=== PATIENT | female | born 1975 | race Caucasian/White ===

== ENCOUNTER 2020-09-18 08:46 | Outpatient (REF) | payer OTHER, SELFPAY ==
--- NOTE | 2020-09-18 08:50 | CT_ITS ---
EXAMINATION: CT PELVIS WITH CONTRAST CLINICAL INFORMATION: SI joint dysfunction of both sides. COMPARISON: None TECHNIQUE: Helical scanning was performed with submillimeter collimation through the pelvis with the use of oral contrast and during bolus intravenous injection of 85 mL of Omnipaque 350 intravenous contrast. Sagittal and coronal multiplanar 2-D reconstructions were obtained. This CT examination was performed using dose optimization techniques as appropriate, variously including the following: *Automated exposure control *Adjustment of mA and/or kV according to patient size (this includes techniques or standardized protocols for targeted exams where dose is matched to indication/reason for exam; i.e. extremities or head) *Use of iterative reconstruction technique DLP: 785 mGy-cm FINDINGS: PELVIS: The bowel gas pattern is nonspecific scattered stool in the colon. No distention seen. The appendix has normal caliber. There is a solitary surgical staple in the left abdomen from previous intervention. The bladder is nondistended with mild bladder wall thickening. There is minimal free fluid in the cul-de-sac. The uterus and ovaries are suboptimally visualized. OSSEOUS STRUCTURES: There are metallic cages at the L5-S1, L4-L5 and L3-L4 disc levels for fusion. The L4 and L5 vertebrae are of normal height. There is normal symmetry of bilateral SI joints without bony erosive changes, lytic or sclerotic process. CT/CT pelvis w con IMPRESSION: Normal symmetric bilateral SI joints. L3-L4, L4-L5 and L5-S1 fusion with cages in place. No gross bony abnormality seen. Especially no abnormality seen in SI joints. Mild constipation.
[2020-09-18] MEDS: iohexoL 350 MG/ML 100 ML INFUS..BTL 85 ML IV (09:43)
== END 2020-09-18 08:47 | disposition home or self-care (01) ==
LOC: HO.CT 08:46
PROVIDERS: PCP Physician Assistant; Visit Provider Anesthesiology
DX: M53.3 Sacrococcygeal disorders, not elsewhere classified (principal)
CPT/HCPCS: 72193

== ENCOUNTER → 2020-10-05 14:00 | Outpatient (BNVA) | payer OTHER, SELFPAY | PROVIDERS: PCP Physician Assistant; Referring Provider Physician Assistant; Visit Provider Anesthesiology | DX: M96.1 Postlaminectomy syndrome, not elsewhere classified (principal); M16.11 Unilateral primary osteoarthritis, right hip; M17.11 Unilateral primary osteoarthritis, right knee; R10.2 Pelvic and perineal pain | CPT/HCPCS: Q3014 ==

== ENCOUNTER → 2020-11-03 13:00 | Outpatient (BNVA) | payer OTHER, SELFPAY | PROVIDERS: PCP Physician Assistant; Visit Provider Obstetrics & Gynecology | DX: R10.2 Pelvic and perineal pain (principal) | CPT/HCPCS: 99202 ==

== ENCOUNTER 2020-12-07 10:37 | Outpatient (REF) | payer OTHER, SELFPAY ==
--- NOTE | ~2020-12-07 | US_ITS ---
EXAMINATION: ULTRASOUND PELVIS COMPLETE US TRANSVAGINAL CLINICAL INFORMATION: Pelvic and perineal pain. History of hysterectomy. COMPARISON: None TECHNIQUE: Transabdominal and transvaginal ultrasound of the pelvis is obtained. FINDINGS: The uterus is surgically absent. The ovaries are not seen. The cervix is unremarkable. No free fluid in the pelvis. US/US transvaginal IMPRESSION: The uterus and ovaries are surgically absent. Unremarkable cervix. No free fluid.
--- NOTE | ~2020-12-07 | US_ITS ---
EXAMINATION: ULTRASOUND PELVIS COMPLETE US TRANSVAGINAL CLINICAL INFORMATION: Pelvic and perineal pain. History of hysterectomy. COMPARISON: None TECHNIQUE: Transabdominal and transvaginal ultrasound of the pelvis is obtained. FINDINGS: The uterus is surgically absent. The ovaries are not seen. The cervix is unremarkable. No free fluid in the pelvis. US/US pelvic complete IMPRESSION: The uterus and ovaries are surgically absent. Unremarkable cervix. No free fluid.
== END 2020-12-07 10:38 | disposition home or self-care (01) ==
LOC: HO.US 10:37
PROVIDERS: Visit Provider Obstetrics & Gynecology
DX: R10.2 Pelvic and perineal pain (principal); R10.31 Right lower quadrant pain; G89.29 Other chronic pain
CPT/HCPCS: 76830; 76856

== ENCOUNTER → 2020-12-26 11:32 | Outpatient (BNVA) | payer OTHER, SELFPAY | PROVIDERS: PCP Physician Assistant; Visit Provider Obstetrics & Gynecology | CPT/HCPCS: Q3014 ==

== ENCOUNTER 2021-02-08 08:16 | Outpatient (REF) | payer OTHER, SELFPAY ==
--- NOTE | 2021-02-08 16:11 | MHC.AU.ANR ---
Adult Audiological Evaluation Date of Visit: 02/08/21 Reason for Appointment: Audiological evaluation due to longstanding history of hearing loss. Patient reports that she was born with hearing loss and has been using hearing aids since she was 18 months old. She reports that her most recent hearing aids were broken and she no longer has them. She is interested in obtaining new hearing aids. She has previously gotten hearing aids through [facility]. Does patient feel they have a hearing loss?: Yes If Yes, Which Ear?: Both Ears Has hearing been tested previously?: Yes Previous Hearing Test Results: Patient reports that her thresholds are around 80 dBHL in both ears. Records are not available for review today. Hearing Handicap Inventory: HHIE SCORE: 28 Based on HHIE score, patient has: Severe perceived hearing handicap Ear History: Ear Infections in Childhood: Both Ears History of Ear Wax Buildup: Both Ears Previous Ear Surgery: Both Ears Medical History: Medical History (Other): Visual impairment Allergies: Morphine, Vicodin, dilaudid, oxycontin, Vicodin, Percocet Medication List: Tizanidine 4mg 3x, Clonopin 1 mg 3x, B6 Vitamin 100 mg 1x, Ibuprofen 800 mg PRN, Pregabalin 100 mg 3x, Albuterol, Flovent, topical cream Otoscopy: Right Ear: Unremarkable Left Ear: Unremarkable Tympanometry: Tympanometry performed due to: To assess integrity of the middle ear system Right Ear: Hypercompliant Middle Ear System (Type Ad) Left Ear: Hypercompliant Middle Ear System (Type Ad) Hearing Evaluation: Transducer(s) Used: Insert Earphones Method: Conventional Audiometry Stimuli Used: Pure Tones Right Ear: Description of Hearing: Moderate sloping to severe sensorineural hearing loss from 250-8000 Hz. Left Ear: Description of Hearing: Moderate sloping to severe sensorineural hearing loss from 250-8000 Hz. Speech Recognition Threshold (SRT): Method Used: Monitored Live Voice Stimuli Used: Spondee Words Right Ear: 70 dBHL Left Ear: 70 dBHL Word Discrimination: Method: Recorded Lists Word Lists Used: NU-6 Right Ear: 52% at 90 dBHL Left Ear: 52% at 90 dBHL Recommendations: Audiological re-evaluation in one year. Trial with amplification is recommended. Medical clearance from a physician is required before fitting. Hearing Aid Fitting will be scheduled when all materials arrive. Hearing aid(s) will be ordered after approval is received. Diagnosis: Primary Diagnosis: H90.3 Bilateral Sensorineural Hearing Loss Services Performed: Services Performed: Comprehensive Audiological Evaluation (CPT 92187) Tympanometry (CPT 44846) Signature: Provider: Belle Mott, CCC-A
--- NOTE | 2021-02-08 16:12 | MHC.AU.MED ---
Medical Clearance for Hearing Instrumentation Date: 02/08/21 Patient Name: Juainta Sun Date of : 1975 We have seen your patient on 02/08/21 and have determined that they are a candidate for amplification (See accompanying report). Specifically, they would benefit from: Hearing aid use in both ears There is a statute that addresses Medical Evaluation Requirements prior to fitting a patient with a hearing aid. According to [place] statute [facility] CMR:6.03(1), (a) General. Except as provided in 265 CMR 6.03(1)(b), a compliance analyst shall not sell a hearing aid unless the prospective user has presented to the compliance analyst a written statement signed by a licensed physician that states that the patient's hearing loss has been medically evaluated and the patient may be considered a candidate for a hearing aid. The medical evaluation must have taken place within the preceding six months. Please note: Due to the [place] Statute referenced above, we cannot accept a signature other than that of a licensed physician. AIRCRAFT STRUCTURAL REPAIRER and PA signatures cannot be accepted. I am in agreement with the above recommendation. There is no medical contraindication for hearing instrumentation. Physician Signature Date Physician Name (Printed)
--- NOTE | 2021-02-08 16:13 | MHC.AU.HAS ---
Hearing Aid Evaluation Date of Visit: 02/08/21 Historical Information: Description of Hearing: Moderate sloping to severe SNHL bilaterally Current personal amplification information, if applicable: Patient reports that she got hearing aids at [facility] 5 years ago Summary: Patient reports that her current hearing aids no longer work. Given her type and degree of hearing loss, she is likely to experience significant communication difficulties if not using hearing aids. Binaural amplification is recommended to facilitate improved communication. Hearing Aid Prescription: Based on the individual?s shared listening needs, communication environments, dexterity, desire for connectivity, and personal preferences, the following prescription for amplification has been made: Right ear: Message And Delivery Service Pricer: [employer] Model: Audeo P70-R Battery Size: Rechargeable Color: H0- [employer] Cutter: Size 0 Power Type of Mold: cShell Left ear: Message And Delivery Service Pricer: Phonak Model: Audeo P70-R Battery Size: Rechargeable Color: H0- [employer] Cutter: Size 0 Power Type of Mold: cShell Action Taken/Action Needed: Earmold Impressions Taken. Prior authorization to be requested. Medical Clearance to be requested from PCP/ENT. Hearing Fitting to be scheduled when materials arrive. Primary Diagnosis: H90.3 Bilateral Sensorineural Hearing Loss Signature: Provider: Belle Mott, DIPAK-A
== END 2021-02-08 08:17 | disposition home or self-care (01) ==
LOC: HO.SH 08:16
PROVIDERS: Visit Provider Physician Assistant
DX: Z46.1 Encounter for fitting and adjustment of hearing aid (principal); H90.3 Sensorineural hearing loss, bilateral
CPT/HCPCS: 92557; 92567; 92591; V5275

== ENCOUNTER 2021-02-13 09:00 | Outpatient (RCR) | payer OTHER, SELFPAY ==
--- NOTE | 2021-01-11 13:40 | MHC.PT.EP ---
[facility] [place] Office [place] Office [place] Office [address] [place] [address] [facility] [phone] F: [phone] F: [phone] F: [phone] F: [phone] Physical Therapy Plan of Care Date of Evaluation: 01/11/21 Date of Surgery: Diagnosis: pelvic pain Assessment: The patient has pain, decreased ROM, and decreased strength in her right hip. More specifically she had pain with palpation along the adductor rim. The patient reports her pain has been since an injury while doing a strength exercise and she heard a pop. Additionally she reports her right leg gives way with physical exertion/long walks. I will do an internal pelvic floor exam next session to assess her strength, coordination, and muscular tissue in her pelvic floor. I will screen for pelvic organ prolapse as well. I have discussed my plan with the patient and she is in compliance and has given consent for me to care for her. The patient also reports being on a medication SOMA for about 10 years. She talked extensively about the benefits she felt taking this medicine. I redirected the conversation several times to discuss her current impairments, and her plan of care. She will benefit from Physical Therapy in order to desensitize her painful area, educate on relaxation strategies as well as lengthening strategies for this muscle. She will benefit from posture education, body mechanics for bending, lifting, and house chores, and management of her pain symptoms. I will do a more thorough exam of her pelvic floor next session to look at resting tone, muscle strength, and assess for prolapse. Frequency and Duration: The patient will be seen 2x/week x 4 weeks Short Term Goals: 1. The patient will demonstrate improved sitting posture and body mechanics. 2. The patient will demonstrate initial HEP in order to improve compliance and carryover. Correction Goals: 1. The patient will be able to report walking for community distances and recreation without leg giving way. 2. Pt will report at least 50% improvement with subjective pain in her pelvis to allow improved functional movements. 3. Pt will be able to resume PLOF without limitation from pelvic pain. Treatment Plan: Modalities to reduce pain, spasms and effusion. Manual therapy to restore motion and function. Therapeutic exercise to improve strength and flexibility. Neuromuscular re-education for posture and balance. Therapeutic activities to return to functional activities of daily living. Electronically signed by: Judy Altman PT DPT Please sign and return to therapist. Thank you for your referral.
== END 2021-04-26 08:00 | disposition home or self-care (01) ==
LOC: HO.PT 09:00
PROVIDERS: PCP Obstetrics & Gynecology; Visit Provider Physician Assistant
DX: R10.2 Pelvic and perineal pain (principal); Z90.710 Acquired absence of both cervix and uterus
CPT/HCPCS: 97110; 97112; 97140; 97162; 97530; 97535

== ENCOUNTER → 2021-02-22 11:08 | Outpatient (BNVA) | payer OTHER, SELFPAY | PROVIDERS: PCP Physician Assistant; Visit Provider Obstetrics & Gynecology | CPT/HCPCS: Q3014 ==

== ENCOUNTER → 2021-03-22 08:15 | Outpatient (BNVA) | payer OTHER, SELFPAY | PROVIDERS: PCP Physician Assistant; Visit Provider Obstetrics & Gynecology ==

== ENCOUNTER 2021-03-29 08:35 | Outpatient (REF) | payer OTHER, SELFPAY | END 2021-03-29 08:36 | disposition home or self-care (01) | LOC: HO.HAP 08:35 | PROVIDERS: Visit Provider Physician Assistant | DX: Z46.1 Encounter for fitting and adjustment of hearing aid (principal); H90.3 Sensorineural hearing loss, bilateral | CPT/HCPCS: V5011; V5020; V5160; V5261; V5264 ==

== ENCOUNTER 2021-04-16 10:23 | Outpatient (REF) | payer OTHER, SELFPAY | END 2021-04-16 10:24 | disposition home or self-care (01) | LOC: HO.HAP 10:23 | PROVIDERS: Visit Provider Physician Assistant | DX: Z13.89 Encounter for screening for other disorder (principal) ==

== ENCOUNTER 2021-04-24 09:31 | Outpatient (REF) | payer OTHER, SELFPAY ==
[2021-04-24 10:28] LABS: Hemoglobin 14.1 g/dl (12.0-16.0); Mean Corpuscular HGB Conc 33.6 g/dl (31.0-35.0); Mean Corpuscular Hemoglobin 29.9 pg (27.0-33.0); Mean Corpuscular Volume 89.2 fL (80-98); Mean Platelet Volume 10.3 fL (9.4-12.3); Platelet Count 203 X10*3/uL (160-400); Red Blood Count 4.71 X10*6/uL (4.20-5.50); Red Cell Distribution Width 13.7 % (11.0-16.0); White Blood Count 7.6 X10*3/uL (4.8-10.8)
[2021-04-24 10:54] LABS: Estimated Average Glucose 88 mg/dL; Hemoglobin A1c % 4.7 %
[2021-04-24 11:12] LABS: Alanine Aminotransferase 25 U/L (0-31); Albumin Level 3.9 g/dL (3.5-5.0); Alkaline Phosphatase 60 U/L (39-117); Anion Gap 11 (12-20); Aspartate Amino Transferase 21 U/L (5-31); Bilirubin Total 0.3 mg/dL (0.0-1.0); Blood Urea Nitrogen 10 mg/dL (9-16); Calcium 8.8 mg/dL (8.4-10.2); Carbon Dioxide 27 mmol/L (22-29); Chloride 110 mmol/L (96-108); Cholesterol 109 mg/dL; Estimated Glomerular Filt Rate > 60; Glucose Fasting 89 mg/dL (60-99); HDL Cholesterol 48 mg/dL; LDL Cholesterol Calculated 55 mg/dl; Potassium 4.4 mmol/L (3.3-5.1); Sodium 144 mmol/L (135-145); Total Protein 6.6 g/dL (6.5-8.0); Triglycerides 30 mg/dL
[2021-04-24 11:19] LABS: TSH reflex Free T4 1.15 uIU/mL (0.32-4.0)
== END 2021-04-24 09:32 | disposition home or self-care (01) ==
LOC: HO.10HDL 09:31
PROVIDERS: Visit Provider Physician Assistant
DX: Z13.220 Encounter for screening for lipoid disorders (principal); Z13.29 Encounter for screening for other suspected endocrine disorder
CPT/HCPCS: 36415; 80053; 80061; 83036; 84443; 85027

== ENCOUNTER 2021-05-10 11:35 | Outpatient (REF) | payer OTHER, SELFPAY | END 2021-05-10 11:36 | disposition home or self-care (01) | LOC: HO.HAP 11:35 | PROVIDERS: Visit Provider Physician Assistant | DX: Z46.1 Encounter for fitting and adjustment of hearing aid (principal); H90.3 Sensorineural hearing loss, bilateral | CPT/HCPCS: V5267 ==

== ENCOUNTER 2021-06-26 13:15 | Outpatient (REF) | payer OTHER, SELFPAY ==
[2021-06-27 12:26] LABS: H Pylori Breath Test NOT DETECTED (NOT DETECTED)
== END 2021-06-26 13:16 | disposition home or self-care (01) ==
LOC: HO.LNP 13:15
PROVIDERS: PCP Physician Assistant; Referring Provider Physician Assistant; Visit Provider Nurse Practitioner Family
DX: K21.9 Gastro-esophageal reflux disease without esophagitis (principal); K58.2 Mixed irritable bowel syndrome
CPT/HCPCS: 83013; 99202

== ENCOUNTER → 2021-07-25 07:41 | Outpatient (BNVA) | payer OTHER, SELFPAY | PROVIDERS: Referring Provider Physician Assistant; Visit Provider Nurse Practitioner Family | DX: Z12.11 Encounter for screening for malignant neoplasm of colon (principal); K58.1 Irritable bowel syndrome with constipation; K21.9 Gastro-esophageal reflux disease without esophagitis | CPT/HCPCS: 99212 ==

== ENCOUNTER 2021-09-06 06:56 | Day surgery (SDC) | payer OTHER, SELFPAY ==
--- NOTE | 2021-09-06 07:18 | HO.ANESPROP2 ---
[facility] Active Problems Active Problems: All Active Problems (Updated 08/30/21 @ 12:29 by Christine Alba RN) Polyneuropathy (Acute) Asthma (Acute) Cervical (neck) region somatic dysfunction (Acute) Cervical (neck) region somatic dysfunction (Acute) Screening for diabetes mellitus (DM) (Acute) Screening for hypothyroidism (Acute) Screening for hypercholesterolemia (Acute) Smoker (Acute) Annual physical exam (Acute) Sensorineural hearing loss (SNHL) of both ears (Acute) Bipolar 1 disorder (Acute) JORDAN (generalized anxiety disorder) (Acute) Retina degeneration (Acute) Dermatitis (Acute) Hot flashes (Acute) Obese (Acute) Lower extremity edema (Acute) Right foot pain (Acute) Vaginal pain (Acute) Osteoarthritis of right knee (Acute) Osteoarthritis of right hip (Acute) Postlaminectomy syndrome (Acute) Past Medical History Medical History (Updated 08/30/21 @ 12:29 by Christine Alba RN) Anxiety Asthma Chronic back pain Depression [place] (hard of hearing) Hyponatremia Legally blind Metatarsus abductus Osteoarthritis of right hip Osteoarthritis of right knee Polyneuropathy PONV (postoperative nausea and vomiting) Postlaminectomy syndrome Smoker Usher syndrome Vaginal pain Functional capacity: independent ambulation Patient : No Family History Family history of problems with anesthesia: No Surgical History Surgical History History of back surgery History of fusion of cervical spine History of hysterectomy History of lumbar fusion Social History Social History Housing: Apartment Alcohol intake: current Alcohol intake frequency: holidays/special occasions only Patient Tobacco Use Status: Current everyday Tobacco user Cigarette Packs Per Day: 1 Cigarettes Per Day: 20 e-Cigarette/Vaping Use: Never Used Advance Directives: No Advance Directives Information Provided: Yes service: No Current occupational status: disabled Sexual orientation: Straight/Heterosexual Gender identity: Female Meds Allergies Allergy/AdvReac Type Severity Reaction Status Date / Time hydromorphone [Dilaudid] Allergy Unknown Vomiting Verified 09/06/21 07:12 morphine [MORPHINE] Allergy Unknown VOMITTING Verified 09/06/21 07:12 From OXYCONTIN Allergy Unknown VOMITTING Uncoded 08/30/21 12:17 Vicodin Allergy Unknown Vomiting Uncoded 08/30/21 12:17 Home Medications Medication Instructions Recorded Confirmed Last Taken Type clonazepam 1 mg tablet 0.500f1 mg PO TID PRN 10/18/20 08/30/21 09/06/21 05:45 History fluticasone propionate 110 1 puff PO BID 11/03/20 08/30/21 Unknown History mcg/actuation HFA aerosol inhaler Exam Exam Date and Time: September 06, 2021 0718 Airway Mallampati Class: II TM Dist: >3cm Neck ROM: Full Heart: RRR Lungs: CTA Assessment and Plan Final Anesthetic Review Family History of Problems with Anesthesia: No ASA Class: II Final Preanesthetic Review: No Changes in Pt Med Stat Patient Risk: Low Procedure Risk: Low Anesthetic Plan Anesthetic Plan: MAC: Disposition: Standard PACU
--- NOTE | 2021-09-06 07:22 | P.HPSUR_ITS ---
Pre-Procedural Eval Section A Date of Service: 09/06/21 Section B Chief Complaint: Screening, GERD Relevant Family History (Specify if Yes): No Relevant Social History: Tobacco Use Present Medications: see Short Stay Collaborative assessment Medical History: Significant History (Anxiety Asthma Chronic back pain Depression [place] (hard of hearing) Hyponatremia Legally blind Metatarsus abductus Osteoarthritis of right hip Osteoarthritis of right knee Polyneuropathy PONV (postoperative nausea and vomiting) Postlaminectomy syndrome Smoker Usher syndrome Vaginal pain) History of Previous Operations: Relevant previous surgery/procedure and date(s) (History of back surgery History of fusion of cervical spine History of hysterectomy History of lumbar fusion) Allergies: Allergies Allergy/AdvReac Type Severity Reaction Status Date / Time hydromorphone [Dilaudid] Allergy Unknown Vomiting Verified 09/06/21 07:12 morphine [MORPHINE] Allergy Unknown VOMITTING Verified 09/06/21 07:12 From OXYCONTIN Allergy Unknown VOMITTING Uncoded 08/30/21 12:17 Vicodin Allergy Unknown Vomiting Uncoded 08/30/21 12:17 Review of Systems Sugical H&P ROS: Negative: Constitution, Cardiovascular, Respiratory, Neurological, Psychiatric, Hem-Onc, Allergic/Immunologic, Gastrointestinal, Genitourinary, Musculoskeletal, Integumentary, Endocrine and Eyes/Ears/Nose/Throat Exam Surgical H&P Exam: Normal: HEENT, Normal: Heart, Normal: Lungs, Normal: Extremities, Normal: Abdomen, Normal: Skin and Normal: Neurological Plan Diagnosis/Plan: Unchanged I have reviewed the history and physical and performed a pertinent physical examination on my patient. No changes have occurred unless specified.
[2021-09-06 07:23] VITALS: BP 138/84; PULSE 78; RESP 16; TEMP 36.6; O2SAT 96
[2021-09-06 07:43] VITALS: BMI 33.1
[2021-09-06] MEDS: Lactated Ringers 1,000 ML 50 ML IVCONT (07:52)
--- NOTE | 2021-09-06 08:47 | PM.OP ---
Brief Operative Note Date of Service: 09/06/21 Pre-op diagnosis: GERd, screening colon Post-op diagnosis: same Procedure: see op note Surgeon: Yanick Quiroz MD Anesthesia: MAC Was an Motorcycle Repair Shop Supervisor used for this Procedure?: No Estimated blood loss (mL): 0 Condition: stable Disposition: PACU
--- NOTE | 2021-09-06 08:48 | P.OP_ITS ---
Operative Note Operative Note Date of Service: 09/06/21 Narrative: Operative Information Procedure Description: EGD, Colonoscopy FLEXIBLE TRANSORAL UPPER GASTROINTESTINAL ENDOSCOPY AND COLONOSCOPY PROCEDURE NOTE UPPER ENDOSCOPY Consent: Indications for the procedure and potential complications of bleeding, perforation, reaction to medications and missed diagnosis were discussed with the patient and informed consent was obtained. Instrument: Olympus GIF H 190 J mid size upper endoscope Monitoring: Vital signs and clinical assessment, continuous EKG monitoring, Pulse oximetry, Carbon Dioxide monitoring and blood pressure monitoring were done throughout the procedure. Procedure: The patient was placed in the left lateral decubitis position and pre-procedure medications were administered and a bite block was placed. The endoscope was inserted into the mouth and advanced under direct vision to the third part of duodenum. A careful inspection was made as the upper endoscope was withdrawn including a retroflexed examination of the proximal stomach; Findings and interventions are described below. Findings: Larynx:normal Esophagus: GE junction at 40 cm, diaphragm hiatus at 40 cm, mild esophagitis at GEJ, bx taken also random esophagus bx taken Stomach: Streaky erythema at antrum. Biopsies were obtained. Grade 2 flap valve on retroflexed examination of the cardia. Duodenum: Bulbar duodenitis, normal descending duodenum, bx taken Intervention: Biopsies as noted above COLONOSCOPY Instrument: Olympus variable stiffness pediatric scope 190L Colonoscopy Monitoring: Vital signs and clinical assessment, continuous EKG monitoring, Pulse oximetry, Carbon Dioxide monitoring and blood pressure monitoring were done throughout the procedure. Colon withdrawal time was [] minutes. Procedure: The patient was placed in the left lateral decubitis position and pre-procedure medications were administered. After a digital rectal examination of the ano-rectum, the video colonoscope was inserted into the rectum and advanced through the colon to the cecum/TI. The colonoscope was slowly withdrawn in a retrograde panoramic fashion and the colon mucosa was carefully examined including a retroflexed view of the rectum. Findings and interventions are described below. Procedure Difficulty: easy Findings: Terminal Ileum-normal Cecum:normal Ascending Colon: normal including on retroflexion Transverse Colon -normal Descending Colon:normal Sigmoid Colon: normal Rectum: Retroflexion with small internal hemorrhoids, grade I, 10 mm sessile polyp removed with cold snare Anorectum - normal Colon preparation: [place] Bowel Preparation Scale Right colon; 3 Transverse colon: 2 Left colon; 2 (0 = Unprepared colon segment with mucosa not seen due to solid stool that can not be cleared. 1 = Portion of mucosa of the colon segment seen, but other areas of the colon segment not well seen due to staining, residual stool and/or opaque liquid. 2 = Minor amount of residual staining, small fragments of stool and/or opaque liquid, but mucosa of colon segment seen well. 3 = Entire mucosa of colon segment seen well with no residual staining, small fragments of stool or opaque liquid) Impression and Post Procedure Diagnosis: Endoscopy Findings: esophagitis gastritis duodenitis Colonoscopy Findings: polyp internal hemorrhoids Plan: Await Pathology results Repeat Colonoscopy in 5 years if adenomatous polyp, 10 yrs if hyperplastic or earlier if clinically indicated High fiber diet leaflet avoid straining at stool, epsom salts and sitz bath, anusol supps or cream confirm nsaid hx and compliance w/ PPI, if h pylori pos then treat Above findings were reviewed with the patient and relevant handouts were provided if indicated.
[2021-09-06 09:13] VITALS: BP 101/59; PULSE 62; RESP 16; TEMP 36.1; O2SAT 99
[2021-09-06 09:28] VITALS: BP 115/48; PULSE 64; RESP 18; TEMP 36.1; O2SAT 98
--- NOTE | 2021-09-06 12:38 | HO.POSTANES ---
Post Anesthesia Evaluation Post Anesthesia Evaluation Vital Signs: Vital Signs Temp Pulse Resp BP Pulse Ox 09/06/21 09:28 97 F 64 18 115/48 L 98 09/06/21 09:13 97 F 62 16 101/59 L 99 09/06/21 07:23 97.8 F 78 16 138/84 96 Anesthesia: Monitored Mental Status: Awake Pain Control: Satisfactory Nausea/Vomiting: None Hydration: Adequate Anesthesia-Related Issues: No Anes. Related Issues
== END 2021-09-06 10:40 | disposition home or self-care (01) ==
PROVIDERS: PCP Physician Assistant; Visit Provider Internal Medicine Gastroenterology
PROC: (CPT 45385; principal; 2021-09-06 08:30)
DX: Z12.11 Encounter for screening for malignant neoplasm of colon (principal); K62.1 Rectal polyp; K64.0 First degree hemorrhoids; K58.9 Irritable bowel syndrome, unspecified; K21.9 Gastro-esophageal reflux disease without esophagitis; K20.80 Other esophagitis without bleeding; K29.80 Duodenitis without bleeding; K44.9 Diaphragmatic hernia without obstruction or gangrene; J45.909 Unspecified asthma, uncomplicated; G62.9 Polyneuropathy, unspecified; L10.4 Pemphigus erythematosus; F41.9 Anxiety disorder, unspecified; F17.210 Nicotine dependence, cigarettes, uncomplicated; H54.8 Legal blindness, as defined in USA; H91.90 Unspecified hearing loss, unspecified ear; Z79.899 Other long term (current) drug therapy; Z88.8 Allergy status to other drugs, medicaments and biological substances
CPT/HCPCS: 45385; 43239; 88305; 88342

== ENCOUNTER → 2021-09-19 08:08 | Outpatient (BNVA) | payer OTHER, SELFPAY | PROVIDERS: PCP Physician Assistant; Visit Provider Nurse Practitioner Family | DX: K21.9 Gastro-esophageal reflux disease without esophagitis (principal); K58.1 Irritable bowel syndrome with constipation; K59.04 Chronic idiopathic constipation; Z98.890 Other specified postprocedural states | CPT/HCPCS: Q3014 ==

== ENCOUNTER 2021-12-18 10:34 | Outpatient (REF) | payer OTHER, SELFPAY ==
[2021-12-19 08:13] LABS: HBsAGNum1 0.21 S/CO (0.00-0.99); HIV AB/AG Nonreactive (Nonreactive); HIV Num 1 0.05 S/CO (0.00-0.99); Hepatitis B Surface Antigen Negative (Negative)
[2021-12-19 08:24] LABS: Syphilis Screen Nonreactive (Nonreactive)
[2021-12-19 08:52] LABS: HBS Num1 0.27 mIU/mL (0-7.99); HBc Num1 0.06 S/CO (0.00-0.79); Hepatitis B Core Antibody Nonreactive (Nonreactive); ~HepC Num1 0.09 S/CO (0.00-0.79); ~Hepatitis B Surface Antibody NONREACTIVE (Nonreactive); ~Hepatitis C Antibody Nonreactive (Nonreactive)
== END 2021-12-18 10:35 | disposition home or self-care (01) ==
LOC: HO.10HDL 10:34
PROVIDERS: Visit Provider Physician Assistant
DX: Z11.3 Encounter for screening for infections with a predominantly sexual mode of transmission (principal); Z11.4 Encounter for screening for human immunodeficiency virus [HIV]
CPT/HCPCS: 36415; 86704; 86706; 86780; 86803; 87340; 87389

== ENCOUNTER 2022-01-03 09:19 | Outpatient (REF) | payer SELFPAY | END 2022-01-03 09:20 | disposition home or self-care (01) | LOC: HO.HAP 09:19 | PROVIDERS: Visit Provider Physician Assistant | DX: Z46.1 Encounter for fitting and adjustment of hearing aid (principal); H90.3 Sensorineural hearing loss, bilateral | CPT/HCPCS: V5267 ==

== ENCOUNTER 2022-02-07 09:27 | Outpatient (REF) | payer OTHER, SELFPAY ==
--- NOTE | ~2022-02-07 | XR_ITS ---
EXAMINATION: XR CERVICAL SPINE CLINICAL INFORMATION: Pain COMPARISON: None TECHNIQUE: Cervical spine is imaged in 7 views. FINDINGS: There has been prior surgical fusion with anterior compression plate and screws C4-C6, interbody bone grafts, and wire posterior elements at C4 and C5. Portion of the posterior spinous processes at C4 and C5 have been resected. The hardware is intact. There is no destructive process or osteolysis. No prevertebral soft tissue swelling. The vertebral bodies are normal in height. There is no cervical vertebral compression, spondylolisthesis, or perched facet. Normal cervical lordosis. There is mild dextrocurvature lower cervical spine. Anterior vertebral body spurring present at C3-C4 and C6-C7. The odontoid appears intact. There is some nuchal ligament ossification lower cervical region. XR/XR cervical spine 4V IMPRESSION: -Postsurgical changes status post fusion C4-C6. -Hardware intact. No destructive process or osteolysis. -Anterior vertebral spurring C3-C4 and C6-C7.
[2022-02-07 11:34] LABS: Estimated Average Glucose 91 mg/dL; Hemoglobin A1c % 4.8 %
[2022-02-07 11:35] LABS: Hematocrit 42.4 % (37.0-47.0); Hemoglobin 14.5 g/dl (12.0-16.0); Mean Corpuscular HGB Conc 34.2 g/dl (31.0-35.0); Mean Corpuscular Hemoglobin 30.4 pg (27.0-33.0); Mean Corpuscular Volume 88.9 fL (80.0-98.0); Mean Platelet Volume 9.6 fL (9.4-12.3); Platelet Count 189 X10*3/uL (160-400); Red Blood Count 4.77 X10*6/uL (4.20-5.50); Red Cell Distribution Width 13.9 % (11.0-16.0); White Blood Count 5.8 X10*3/uL (4.8-10.8)
[2022-02-07 11:57] LABS: Alanine Aminotransferase 24 U/L (0-31); Alkaline Phosphatase 61 U/L (39-117); Anion Gap 13 (12-20); Aspartate Amino Transferase 21 U/L (5-31); Bilirubin Total 0.5 mg/dL (0.0-1.0); Blood Urea Nitrogen 13 mg/dL (9-16); Calcium 9.1 mg/dL (8.4-10.2); Carbon Dioxide 27 mmol/L (22-29); Chloride 106 mmol/L (96-108); Cholesterol 138 mg/dL; Estimated Glomerular Filt Rate > 60; Glucose Fasting 87 mg/dL (60-99); HDL Cholesterol 52 mg/dL; LDL Cholesterol Calculated 78 mg/dl; Potassium 4.9 mmol/L (3.3-5.1); Sodium 141 mmol/L (135-145); Total Protein 6.9 g/dL (6.5-8.0); Triglycerides 42 mg/dL
== END 2022-02-07 09:28 | disposition home or self-care (01) ==
LOC: HO.XRAY 09:27
PROVIDERS: PCP Physician Assistant; Visit Provider Physician Assistant
DX: Z13.29 Encounter for screening for other suspected endocrine disorder (principal); Z13.220 Encounter for screening for lipoid disorders; M53.82 Other specified dorsopathies, cervical region
CPT/HCPCS: 36415; 72050; 80053; 80061; 83036; 84443; 85027

== ENCOUNTER → 2022-04-15 09:47 | Outpatient (BNVA) | payer OTHER, SELFPAY | PROVIDERS: PCP Physician Assistant; Visit Provider Nurse Practitioner Family | DX: M53.82 Other specified dorsopathies, cervical region (principal); M47.812 Spondylosis without myelopathy or radiculopathy, cervical region; M96.1 Postlaminectomy syndrome, not elsewhere classified; M62.838 Other muscle spasm | CPT/HCPCS: 99212 ==

== ENCOUNTER 2022-04-25 09:51 | Outpatient (REF) | payer OTHER, SELFPAY ==
--- NOTE | ~2022-04-25 | MM_ITS ---
EXAMINATION: MM SCREENING DIGITAL BREAST TOMOSYNTHESIS, BILATERAL CLINICAL INFORMATION: Screening. Asymptomatic. Age 46. No prior breast imaging. No known family history breast cancer. The lifetime risk of breast cancer based on the Tyrer-Cuzick Model is 9%. COMPARISON: None (current study represents initial baseline exam). TECHNIQUE: Digital breast tomosynthesis is performed in both the craniocaudal and mediolateral oblique views along with computer-aided detection (CAD). Synthesized 2D images are generated from the tomosynthesis. FINDINGS: There are scattered areas of fibroglandular density (ACR BI-RADS breast composition Category b). There are no significant masses, abnormal calcifications, or other abnormalities. No architectural abnormality. The axilla and skin contours are unremarkable. MM/MM tomosynthesis screening BI IMPRESSION: No mammographic evidence of malignancy. ASSESSMENT: BI-RADS 1: Negative RECOMMENDATION: Routine annual mammography screening. This patient's information was entered into a reminder system with a target due date for their next mammogram.
== END 2022-04-25 09:52 | disposition home or self-care (01) ==
LOC: HO.MAMMO 09:51
PROVIDERS: PCP Physician Assistant; Visit Provider Advanced Practice Midwife
DX: Z12.31 Encounter for screening mammogram for malignant neoplasm of breast (principal)
CPT/HCPCS: 77063; 77067

== ENCOUNTER → 2022-05-27 08:59 | Outpatient (BNVA) | payer OTHER, SELFPAY | PROVIDERS: PCP Physician Assistant | DX: N81.4 Uterovaginal prolapse, unspecified (principal) | CPT/HCPCS: 51798; 99202 ==

== ENCOUNTER 2022-07-02 09:57 | Outpatient (REF) | payer OTHER, SELFPAY ==
[2022-07-02 10:25] LABS: Hematocrit 44.3 % (37.0-47.0); Hemoglobin 15.4 g/dl (12.0-16.0); Mean Corpuscular HGB Conc 34.8 g/dl (31.0-35.0); Mean Corpuscular Hemoglobin 31.8 pg (27.0-33.0); Mean Corpuscular Volume 91.5 fL (80.0-98.0); Mean Platelet Volume 8.9 fL (9.4-12.3); Platelet Count 213 X10*3/uL (160-400); Red Blood Count 4.84 X10*6/uL (4.20-5.50); Red Cell Distribution Width 13.4 % (11.0-16.0); White Blood Count 7.9 X10*3/uL (4.8-10.8)
[2022-07-02 10:58] LABS: Alanine Aminotransferase 21 U/L (0-31); Albumin Level 4.3 g/dL (3.5-5.0); Alkaline Phosphatase 67 U/L (39-117); Anion Gap 15 (12-20); Aspartate Amino Transferase 20 U/L (5-31); Bilirubin Total 0.3 mg/dL (0.0-1.0); Blood Urea Nitrogen 12 mg/dL (9-16); Calcium 9.4 mg/dL (8.4-10.2); Carbon Dioxide 28 mmol/L (22-29); Chloride 103 mmol/L (96-108); Cholesterol 173 mg/dL; Estimated Glomerular Filt Rate > 60; Glucose Fasting 92 mg/dL (60-99); HDL Cholesterol 54 mg/dL; LDL Cholesterol Calculated 102 mg/dl; Potassium 4.9 mmol/L (3.3-5.1); Sodium 141 mmol/L (135-145); Total Protein 7.6 g/dL (6.5-8.0); Triglycerides 86 mg/dL
[2022-07-02 11:10] LABS: TSH reflex Free T4 2.66 uIU/mL (0.32-4.0)
[2022-07-06 09:27] LABS: Oxcarbazepine 15.5 mcg/mL (8.0-35.0)
== END 2022-07-02 09:58 | disposition home or self-care (01) ==
LOC: HO.10HDL 09:57
PROVIDERS: Absent Provider Nurse Practitioner Psychiatric/Mental Health; Visit Provider Physician Assistant
DX: F31.9 Bipolar disorder, unspecified (principal); Z13.1 Encounter for screening for diabetes mellitus; Z13.220 Encounter for screening for lipoid disorders; Z13.29 Encounter for screening for other suspected endocrine disorder; Z79.899 Other long term (current) drug therapy
CPT/HCPCS: 36415; 80053; 80061; 80339; 84443; 85027

== ENCOUNTER 2023-02-18 10:39 | Outpatient (REF) | payer OTHER, SELFPAY ==
[2023-02-18 13:30] LABS: Hematocrit 43.5 % (37.0-47.0); Hemoglobin 15.4 g/dl (12.0-16.0); Mean Corpuscular HGB Conc 35.4 g/dl (31.0-35.0); Mean Corpuscular Volume 87.5 fL (80.0-98.0); Platelet Count 217 X10*3/uL (160-400); Red Blood Count 4.97 X10*6/uL (4.20-5.50); Red Cell Distribution Width 12.8 % (11.0-16.0); White Blood Count 6.8 X10*3/uL (4.8-10.8)
[2023-02-18 14:03] LABS: Anion Gap 14 (12-20); Blood Urea Nitrogen 7 mg/dL (9-16); Calcium 9.5 mg/dL (8.4-10.2); Carbon Dioxide 27 mmol/L (22-29); Chloride 94 mmol/L (96-108); Estimated Glomerular Filt Rate > 60; Glucose Fasting 88 mg/dL (60-99); Potassium 4.6 mmol/L (3.3-5.1); Sodium 130 mmol/L (135-145)
[2023-02-18 14:18] LABS: Alanine Aminotransferase 29 U/L (0-31); Albumin Level 4.6 g/dL (3.5-5.0); Alkaline Phosphatase 76 U/L (39-117); Anion Gap 13 (12-20); Aspartate Amino Transferase 24 U/L (5-31); Bilirubin Total 0.7 mg/dL (0.0-1.0); Blood Urea Nitrogen 7 mg/dL (9-16); Calcium 9.6 mg/dL (8.4-10.2); Carbon Dioxide 28 mmol/L (22-29); Chloride 94 mmol/L (96-108); Estimated Glomerular Filt Rate > 60; Glucose Fasting 88 mg/dL (60-99); Potassium 4.3 mmol/L (3.3-5.1); Sodium 131 mmol/L (135-145); Total Protein 7.6 g/dL (6.5-8.0)
== END 2023-02-18 10:40 | disposition home or self-care (01) ==
LOC: HO.10HDL 10:39
PROVIDERS: Absent Provider Nurse Practitioner Psychiatric/Mental Health; Visit Provider Physician Assistant
DX: E66.09 Other obesity due to excess calories (principal); F31.0 Bipolar disorder, current episode hypomanic; F41.1 Generalized anxiety disorder; Z79.899 Other long term (current) drug therapy; Z13.1 Encounter for screening for diabetes mellitus; Z68.34 Body mass index [BMI] 34.0-34.9, adult
CPT/HCPCS: 36415; 80048; 80053; 84443; 85027

== ENCOUNTER 2023-04-23 09:37 | Outpatient (REF) | payer OTHER, SELFPAY ==
[2023-04-23 11:20] LABS: Anion Gap 8 (12-20); Blood Urea Nitrogen 11 mg/dL (9-16); Calcium 9.2 mg/dL (8.4-10.2); Carbon Dioxide 28 mmol/L (22-29); Chloride 101 mmol/L (96-108); Estimated Glomerular Filt Rate > 60; Glucose Random 91 mg/dL (60-115); Potassium 4.3 mmol/L (3.3-5.1); Sodium 133 mmol/L (135-145)
[2023-04-28 21:18] LABS: NT-proBNP 125 pg/mL (<125)
== END 2023-04-23 09:38 | disposition home or self-care (01) ==
LOC: HO.10HDL 09:37
PROVIDERS: Visit Provider Physician Assistant
DX: R60.0 Localized edema (principal); E87.1 Hypo-osmolality and hyponatremia
CPT/HCPCS: 36415; 80048; 83880

== ENCOUNTER 2023-05-13 10:08 | Outpatient (REF) | payer OTHER, SELFPAY ==
[2023-05-13 11:31] LABS: Anion Gap 10 (12-20); Blood Urea Nitrogen 12 mg/dL (9-16); Calcium 9.5 mg/dL (8.4-10.2); Carbon Dioxide 28 mmol/L (22-29); Chloride 104 mmol/L (96-108); Estimated Glomerular Filt Rate > 60; Glucose Fasting 96 mg/dL (60-99); Potassium 4.6 mmol/L (3.3-5.1); Sodium 137 mmol/L (135-145)
== END 2023-05-13 10:09 | disposition home or self-care (01) ==
LOC: HO.10HDL 10:08
PROVIDERS: Visit Provider Nurse Practitioner Psychiatric/Mental Health
DX: F31.0 Bipolar disorder, current episode hypomanic (principal); F41.1 Generalized anxiety disorder; Z79.899 Other long term (current) drug therapy
CPT/HCPCS: 36415; 80048

== ENCOUNTER → 2023-06-05 10:36 | Outpatient (REF) | payer OTHER, SELFPAY ==
--- NOTE | 2023-06-05 10:40 | CA_ITS ---
Transthoracic Echocardiogram Patient (Last, First, Middle): Juanita Sun R Gender: Female Date of : 1975 Age: 47 Procedure Date: 06/05/2023 Procedure Type: Transthoracic Echocardiogram Location: OP Height: 165.1 cm Weight: 80.74 kg BSA: 1.88 m2 Heart Rate: bpm BP: 125 / 82 mmHg [place] Machine Operator: DARBY Referring MD: Pedro Cannon PA-C Symptoms: R79.89 - Other specified abnormal findings of blood chemistry Study Quality: Adequate ECG Rhythm: Sinus Conclusions: - The left ventricular systolic function is normal. The calculated ejection fraction is 61% by biplane method. - No obvious valvular pathology seen on this study. Findings Left Ventricle Normal left ventricular cavity size. There is normal left ventricular wall thickness. The left ventricular systolic function is normal. The calculated ejection fraction is 61% by biplane method. There is no evidence of regional wall motion abnormalities. Diastolic function is normal for age. LV peak GLS -19.6%. Right Ventricle Normal right ventricular cavity size and systolic function. Atria Both atria are normal in size. Aortic Valve There is a normal trileaflet aortic valve. There is no aortic valve stenosis. There is no aortic valve regurgitation. Mitral Valve The mitral valve appears normal. There is no mitral valve regurgitation. There is no mitral valve stenosis. Pulmonic Valve The pulmonic valve is likely normal. Tricuspid Valve There is trace tricuspid valve regurgitation. Tricuspid regurgitation envelope is inadequate for calculation of right ventricular systolic pressure. Great Vessels The asc aorta is normal in size. Venous The inferior vena cava is normal in size and collapses greater than 50% with inspiration. Pericardium/Pleural There is no evidence of pericardial effusion. Prior Study Comparison No prior study available for comparison. Recommendations, Care & Conclusions No obvious valvular pathology seen on this study. Measurements 2D Linear Measurements IVSd: 0.90 0.6-0.9/0.6-1.0 cm LVIDd: 4.60 3.9-5.3/4.2-5.9 cm LVIDd Index: 2.45 2.4-3.2/2.2-3.1 cm/m2 LVIDs: 2.90 2.0-3.6 cm LVPWd: 0.90 0.7-1.1 cm LA Diam: 3.20 2.7-3.8/3.0-4.0 cm LAIDs Index: 1.70 1.5-2.3 cm/m2 LV Mass: 171.40 67-162/88-224 g LV Mass Index: 91.17 43-95/49-115 g/m2 LVOT Diam: 1.90 3.0+(-)1.3 cm 2D Systolic Function EF 4C: 58.00 >55% EF 2C: 65.20 >55% EF BiP: 61.40 >55% Mitral Valve MV Pk E: 0.87 MV PK A: 0.60 MV Decel Time: 213.00 E/A: 1.40 E'Lateral: 10.20 E'Medial: 8.16 E/E' Med: 10.70 E/E' Lat: 8.50 PHT: 62.00 MVA PHT: 3.55 Decel [place]: 4.08 Aortic Valve AoV Pk Moe: 1.24 AoV Mn Moe: 0.86 AoV VTI: 0.32 AoV Pk Grad: 6.00 Aov Mn Grad: 3.00 CARTER Cont.VTI: 2.32 LVOT LVOT Pk Moe: 0.96 LVOT Mn Moe: 0.67 LVOT VTI: 0.26 LVOT Pk Grad: 4.00 LVOT Mn Grad: 2.00 LVOT Diam: 1.90 LVOT Area: 2.84 Diastolic Function MV Pk E: 0.87 MV Pk A: 0.60 E/A: 1.40 E'Medial: 8.16 E/E' Med: 10.70 E' Laterial: 10.20 E/E' Lat: 8.50 Right Ventricle TAPSE (mm): 20.80 TVS' Moe: 10.70 Great Vessels Aorta Sinus of Valsalva: 3.00 2.0-3.[address] [place]: 2.40 1.7-3.4 cm Ao Asc: 2.90 2.1-3.4 cm Updated in Other Vendor System with Status of Final Charlie Pittman MD electronically signed on 06/05/2023 12:22:29 PM with status of Final
== END ==
LOC: HO.CARD 10:36
PROVIDERS: PCP Physician Assistant; Visit Provider Physician Assistant
DX: R60.0 Localized edema (principal); R07.89 Other chest pain
CPT/HCPCS: 93306

== ENCOUNTER → 2023-06-05 10:40 | Outpatient (BNV) | payer OTHER, SELFPAY | PROVIDERS: PCP Physician Assistant; Visit Provider Internal Medicine | DX: R79.89 Other specified abnormal findings of blood chemistry (principal) | CPT/HCPCS: 93306 ==

== ENCOUNTER 2023-08-06 09:23 | Outpatient (REF) | payer OTHER, SELFPAY ==
[2023-08-06 11:09] LABS: Alanine Aminotransferase 11 U/L (0-31); Alkaline Phosphatase 73 U/L (39-117); Anion Gap 15 (12-20); Aspartate Amino Transferase 15 U/L (5-31); Bilirubin Total 0.3 mg/dL (0.0-1.0); Blood Urea Nitrogen 13 mg/dL (9-16); Calcium 9.6 mg/dL (8.4-10.2); Carbon Dioxide 30 mmol/L (22-29); Chloride 96 mmol/L (96-108); Estimated Glomerular Filt Rate > 60; Glucose Fasting 74 mg/dL (60-99); Potassium 4.7 mmol/L (3.3-5.1); Sodium 136 mmol/L (135-145); Total Protein 7.4 g/dL (6.5-8.0)
== END 2023-08-06 09:24 | disposition home or self-care (01) ==
LOC: HO.10HDL 09:23
PROVIDERS: Visit Provider Nurse Practitioner Psychiatric/Mental Health
DX: F31.0 Bipolar disorder, current episode hypomanic (principal); F41.1 Generalized anxiety disorder; Z79.899 Other long term (current) drug therapy
CPT/HCPCS: 36415; 80053

== ENCOUNTER 2023-12-24 08:55 | Outpatient (AMB) | payer OTHER, SELFPAY ==
[2023-12-24 09:03] VITALS: BP 132/82; PULSE 70; RESP 17; O2SAT 100; BMI 32.4
--- NOTE | 2023-12-24 09:03 | MHC.PC.OV ---
Vital Signs 12/24/23 09:03 Height 5 ft 5 in Weight 194 lb 8 oz BMI 32.4 BP 132/82 Blood Pressure Location Lt brachial Position Sitting Respiration 17 Pulse 70 Pulse Source Pulse Oximeter Pulse Oximetry (%) 100 Oxygen Delivery Method Room Air Intake Visit Reasons: leg pain,old injury Intake Note: The patient presents with pain in the right leg pain from an old injury persisting for the last four months. The injury occurred when the patient slipped and lost balance. Manager Of Case Required: No Accompanied by: Self / Same As Patient Allergies hydromorphone [Dilaudid] Allergy (Unknown, Verified 12/24/23 09:13) Vomiting morphine [MORPHINE] Allergy (Unknown, Verified 12/24/23 09:13) VOMITTING From OXYCONTIN Allergy (Unknown, Uncoded 12/24/23 09:07) VOMITTING Vicodin Allergy (Unknown, Uncoded 12/24/23 09:07) Vomiting Medication List - Last Reconciled 12/24/23 by Pedro Cannon PA-C albuterol sulfate 90 mcg/actuation 2 puffs PO Q6H PRN carisoprodol (Soma) 350 mg PO BID 30 days clonazepam 0.500f1 mg PO TID PRN fluticasone propionate 110 mcg/actuation (Flovent HFA) 1 puff inhalation BID 30 days furosemide (Lasix) 40 mg (2 x 20 mg) PO QAM 10 days mupirocin 2% 1 appl topical DAILY 15 days oxcarbazepine 300 mg PO TID pyridoxine (vitamin B6) 100 mg PO DAILY Tobacco use date assessed: 12/24/23 Dental Screening Dental Screen Date: 12/24/23 HPI leg pain,old injury HPI Details Patient is a 48-year-old female here today for problem visit ? Patient has a past medical history significant for post-laminectomy syndrome, asthma, polyneuropathy ( Small fibroneuropathy) , retinitis, smoker, legally blind. Concern--> he reports having a mechanical fall 4months ago while walking and hiking, reports right groin pain, right knee and ankle pain. She does have significant bilateral lower extremity polyneuropathy to which she uses oxy carbamazepine and muscle relaxer for. She reports most of her pain is in the inner thigh area and she does get pain when placing full weight on right ankle. ..' CHRONIC MEDICAL CONDITIONS--> Neuropathy: Patient continues on Soma to which she reports remarkable improvement in her pain and is able to walk 5-6 miles per day.? Has been able to reduce her weight due to being more physically active. We increased her dose to 1.5 tablets in the morning and 1 tablet at night. Of note has been able to lose significant amount of weight due to being more physically active since her pain has been better control. .. Cervical disc disease:? She does have a previous fusion of C4-C5, recently got x-ray showing proper intact hardware and evidence of osteophytes and arthritis.? She continues to have pain in her neck and intermittent swelling. She reports Soma is helping to relieve some of her pain. She has follow-up with [facility] for continued discussion about pain reduction modalities. .. Smoker:? Unfortunately continues to smoke a pack per day and reports her triggers are her home stress.? .. / bipolar disorder generalized anxiety disorder:? Has been restarted on Trileptal feels her mental health has improved.? Patient continues to follow a therapist and a mental health provider.? She continues with the p.r.n. use of clonazepam for anxiety with decent affect.?? PFSH Medical History Polyneuropathy Smoker Chronic back pain [place] (hard of hearing) Asthma Depression PONV (postoperative nausea and vomiting) Metatarsus abductus Anxiety Usher syndrome Legally blind Hyponatremia Vaginal pain Cervical (neck) region somatic dysfunction Osteoarthritis of right knee Postlaminectomy syndrome Surgical History S/P tooth extraction Hx of colonoscopy History of back surgery History of fusion of cervical spine History of lumbar fusion History of hysterectomy Social History Housing: Apartment Alcohol intake: former Patient Tobacco Use Status: Former Tobacco user Cigarette Packs Per Day: 1 Cigarettes Per Day: 20 Years Smoked: 34 e-Cigarette/Vaping Use: Currently Using service: No Current occupational status: disabled Current occupational exposures/hazards: No Sexual orientation: Straight/Heterosexual Gender identity: Female Cognitive needs: Yes (cane) Hearing needs: No Vision needs: Yes Questionnaire PHQ-9 Over the last 2 weeks, how often have you been bothered by any of the following problems? 1. Little interest or pleasure in doing things: not at all 2. Feeling down, depressed, or hopeless: not at all 3. Trouble falling or staying asleep, or sleeping too much: not at all 4. Feeling tired or having little energy: not at all 5. Poor appetite or overeating: not at all 6. Feeling bad about yourself - or that you are a failure or have let yourself or your family down: not at all 7. Trouble concentrating on things, such as reading the newspaper or watching television: not at all 8. Moving or speaking so slowly that other people could have noticed. Or the opposite - being so fidgety or restless that you have been moving around a lot more than usual: not at all 9. Thoughts that you would be better off or of hurting yourself in some way: not at all Total score: 0 Depression Screening Interpretation: Negative Depression Screening Done: Yes 97854 - PHQ-9 Billing: Yes Source: Developed by Drs. Juwan Danielle, Chika Gallegos, Ravi Yuen and colleagues, with an educational chen from [employer]. Thrive Questionnaire Date Thrive assessed: 12/24/23 I am a: Patient What is your living situation today?: I have a steady place to live Within the past 12 months, did the food you bought not last and you didn't have the money to get more?: Never true Within the past 12 months, did you worry whether your food would run out before you got money to buy more?: Never true Do you have trouble paying for medicines?: No Do you have trouble getting transportation to medical appointments?: No Do you have trouble paying your heating and electricity bill?: No Do you have trouble taking care of your child, family member or friend?: No Do you have trouble with day-to-day activities such as bathing, preparing meals, shopping, managing finances, etc.?: No Are you currently unemployed and looking for a job?: No Are you interested in more education?: No Please select the resources that you would like help with: None Currently or been in a relationship where the following occur: no concerns reported THRIVE Score: 0 AUDIT C Alcohol Use Questionnaire (AUDIT-C) 1. How often do you have a drink containing alcohol?: Monthly or less 2. How many drinks containing alcohol do you have on a typical day when you are drinking?: 1 or 2 3. How often do you have six or more drinks on one occasion?: Never Total Score: 1 JORDAN-7 AMB Questionnaire JORDAN-7 Date JORDAN - 7 assessed: 12/24/23 Feeling nervous, anxious, or on edge: 0 = Not at all Not being able to stop or control worryin = Not at all Worrying too much about different things: 0 = Not at all Trouble relaxin = Not at all Being so restless that it is hard to sit still: 0 = Not at all Becoming easily annoyed or irritable: 0 = Not at all Feeling afraid as if something awful might happen: 0 = Not at all Total JORDAN-7 score (0-4 normal; 5-9 mild; 10-14 moderate; 15-21 severe): 0 Source: Developed by Drs. Juwan Dainelle, Chika Gallegos, Ravi Yuen and colleagues, with an educational chen from [employer]. JORDAN-7 Assessment Billing JORDAN-7 Assessment Tool: JORDAN-7 Assessment 41694 Review of Systems Const Denies headache(s) Eyes Denies loss of vision ENT Denies vertigo, Denies dizziness, Denies headache(s) and Denies sore throat Card Denies chest pain, Denies leg edema and Denies lightheadedness Resp Denies cough, Denies hemoptysis and Denies wheezing GI Denies abdominal pain, Denies melena, Denies constipation, Denies diarrhea and Denies vomiting Denies urinary frequency, Denies dysuria and Denies urinary urgency Musc Denies arthralgias, Denies joint swelling, Denies numbness and Denies tingling Neuro Denies Abnormal speech present, Denies behavioral changes, Denies vertigo, Denies dizziness, Denies headache(s), Denies loss of vision, Denies memory loss, Denies numbness and Denies tingling Psych Denies anxiety, Denies behavioral changes, Denies depression, Denies memory loss and Denies panic attacks Silvestre/Lymph Denies easy bleeding and Denies easy bruising Aller/Immun Denies wheezing Physical exam (Primary Care) Vital Signs: Last Vital Signs Pulse 70 12/24/23 09:03 Resp 17 12/24/23 09:03 BP 132/82 12/24/23 09:03 Pulse Ox 100 12/24/23 09:03 Oxygen Delivery Method Room Air 12/24/23 09:03 BMI result Body Mass Index 32.4 Tobacco/Smoking Status: Tobacco use Status Tobacco use date assessed 12/24/23 12/24/23 09:12 Patient Tobacco Use Status Former Tobacco user 12/24/23 09:12 Tobacco use type 12/24/23 09:12 e-Cigarette/Vaping Use Currently Using 12/24/23 09:12 PHQ-9: PHQ-9 Score PHQ-9: Total score 0 12/24/23 09:18 Depression Screening Interpretation: Negative Thrive Assessment: Date of Thrive Assessment Date Thrive assessed 12/24/23 12/24/23 09:12 Currently or been in a relationship where the following occur: no concerns reported Const General: healthy appearing, no acute distress, alert and awake Nutritional Appearance: well nourished Orientation/consciousness: oriented to person, oriented to place and oriented to time HENMT Ears: TM's normal bilaterally General nose exam: Normal nasal mucous membranes and turbinates present Eyes Conjunctivae: conjunctivae normal Sclerae: sclerae normal Pupils: Equal, round and reactive pupils present Neck Neck: Yes no lymphadenopathy and Yes no JVD Thyroid: Thyroid normal Carotids: no bruits Resp Effort & Inspection: normal respiratory effort and not tachypneic Auscultation: no crackles, no rales, no rhonchi and no wheezes Cardio Rate: regular rate Rhythm: regular rhythm Heart sounds: no murmurs and normal S1 and S2 GI Palpation (GI): Soft to palpation, nontender, no hepatomegaly and no splenomegaly Auscultation: normal bowel sounds Skin General skin exam: no rashes or lesions noted and dry skin Neuro General: oriented to person, oriented to place and oriented to time Cranial nerves: Yes Equal, round and reactive pupils present Speech: No Abnormal speech present Gait exam (Neuro): Normal gait present Motor exam (neuro): no tremor noted Extrem Right upper extremity: full ROM Left upper extremity: full ROM Right lower extremity: full ROM; no edema Left lower extremity: full ROM; no edema Psych Mental Status: mental status grossly normal Speech and movement: Normal speech and movement present Affect: normal affect Attitude: cooperative Thought process: Normal thought process present Assessment and Plan Assessment & Plan (1) Right groin pain: Code(s): R10.31 - Right lower quadrant pain Plan: Patient likely has a hamstring strain from her mechanical misstepped. Advised she would likely benefit from physical therapy to help her balance and gait as she does have severe neuropathy in her lower extremities. She does have an issue with her vision as well thus uses a guiding stick. She is asking for increase dose Soma muscle relaxer though advised that is not appropriate and she needs to use other means on pain reduction. Was willing to give a short-term low-dose script of oxycodone to use for breakthrough pain. We did have long discussion about her need to start physical therapy and patient is considering and will let us know if she would like to do physical therapy (2) Balance disorder: Code(s): R26.89 - Other abnormalities of gait and mobility Plan: As above she would likely benefit from physical therapy (3) Lumbar spine pain: Code(s): M54.50 - Low back pain, unspecified Plan: Will get x-ray of lower lumbar spine (4) Right knee pain: Code(s): M25.561 - Pain in right knee Qualifiers: Chronicity: chronic Qualified Code(s): M25.561 - Pain in right knee; G89.29 - Other chronic pain Plan: Will get x-ray of knee due to recent fall (5) Right ankle pain: Code(s): M25.571 - Pain in right ankle and joints of right foot Qualifiers: Chronicity: acute Qualified Code(s): M25.571 - Pain in right ankle and joints of right foot Orders: Orders XR pelvis 1-2V 12/24/23 R10.31 - Right lower quadrant pain Comprehensive [place]. Panel Fast 12/24/23 Z13.1 - Encounter for screening for diabetes mellitus Vitamin D 25-OH Total 12/24/23 G62.9 - Polyneuropathy, unspecified XR ankle RT 2V 12/24/23 M25.571 - Pain in right ankle and joints of right foot XR knee RT 3V 12/24/23 G89.29 - Other chronic pain, M25.561 - Pain in right knee XR lumbar spine 2-3V 12/24/23 M54.50 - Low back pain, unspecified Vitamin B12 and Folate 12/24/23 E53.8 - Deficiency of other specified B group vitamins, G62.9 - Polyneuropathy, unspecified Medications: New oxycodone Partial Fill upon patient request. 5 mg PO DAILY 30 days PRN 7 tabs 0RF pain M54.50 - Low back pain, unspecified Refilled carisoprodol (Soma) Takes 1.5 in the AM and 1 tabs in PM 350 mg PO BID 30 days 75 tabs 3RF M99.01 - Segmental and somatic dysfunction of cervical region Coding Level of Care Code Est Pt Level 4 (85913) Diagnoses Right groin pain R10.31 Balance disorder R26.89 Lumbar spine pain M54.50 Chronic pain of right knee M25.561; G89.29 Chronicity: chronic Acute right ankle pain M25.571 Chronicity: acute Additional Codes JORDAN-7 Assessment Billing - JORDAN-7 Assessment Tool: JORDAN-7 Assessment 70450 ([id number])
== END 2023-12-24 09:37 | disposition home or self-care (01) ==
PROVIDERS: PCP Physician Assistant; Visit Provider Physician Assistant
DX: R10.31 Right lower quadrant pain (principal); R26.89 Other abnormalities of gait and mobility; M54.50 Low back pain, unspecified; M25.561 Pain in right knee; G89.29 Other chronic pain; M25.571 Pain in right ankle and joints of right foot
CPT/HCPCS: 99214

== ENCOUNTER 2024-01-05 09:37 | Outpatient (REF) | payer OTHER, SELFPAY ==
--- NOTE | ~2024-01-05 | XR_ITS ---
STUDY: Right knee and right ankle INDICATION: Right knee and right ankle/foot pain. COMPARISON: None TECHNIQUE: 3 view right knee and right ankle. FINDINGS: Right knee: No fracture, dislocation or joint effusion. Alignment and articulations are maintained. Right ankle: No fracture or dislocation. No focal soft tissue swelling. Mortise is intact. Alignment and articulations are maintained. Pretibial calcification. XR/XR ankle RT 2V IMPRESSION: No acute bony pathology right knee and right ankle
--- NOTE | ~2024-01-05 | XR_ITS ---
EXAMINATION: XR LUMBOSACRAL SPINE CLINICAL INFORMATION: Low back pain COMPARISON: 09/02/2012 TECHNIQUE: Three views of the lumbosacral spine. FINDINGS: Metallic disc spacers at L3-L4, L4-L5 and L5-S1 and multiple surgical clips are stable. Vertebral body heights are maintained. Alignment remains satisfactory. Visualized pedicles and SI joints within normal limits. XR/XR lumbar spine 2-3V IMPRESSION: Stable appearance of post operative changes lumbar spine.
--- NOTE | ~2024-01-05 | XR_ITS ---
EXAMINATION: XR PELVIS CLINICAL INFORMATION: Right lower quadrant pain COMPARISON: None available. TECHNIQUE: AP view of the pelvis. FINDINGS: Bony pelvis is intact. No significant hip joint narrowings, fracture or dislocation. Stable lower lumbar and lumbosacral disc spacers. Surgical clips and pelvic phleboliths. Nonspecific bowel pattern. XR/XR pelvis 1-2V IMPRESSION: No acute bony pathology.
--- NOTE | ~2024-01-05 | XR_ITS ---
STUDY: Right knee and right ankle INDICATION: Right knee and right ankle/foot pain. COMPARISON: None TECHNIQUE: 3 view right knee and right ankle. FINDINGS: Right knee: No fracture, dislocation or joint effusion. Alignment and articulations are maintained. Right ankle: No fracture or dislocation. No focal soft tissue swelling. Mortise is intact. Alignment and articulations are maintained. Pretibial calcification. XR/XR knee RT 3V IMPRESSION: No acute bony pathology right knee and right ankle
[2024-01-05 13:03] LABS: Alanine Aminotransferase 27 U/L (0-31); Albumin Level 4.1 g/dL (3.5-5.0); Alkaline Phosphatase 72 U/L (39-117); Anion Gap 11 (12-20); Aspartate Amino Transferase 24 U/L (5-31); Bilirubin Total 0.3 mg/dL (0.0-1.0); Blood Urea Nitrogen 9 mg/dL (9-16); Calcium 9.2 mg/dL (8.4-10.2); Carbon Dioxide 30 mmol/L (22-29); Chloride 103 mmol/L (96-108); Estimated Glomerular Filt Rate > 60; Glucose Fasting 86 mg/dL (60-99); Potassium 4.1 mmol/L (3.3-5.1); Sodium 140 mmol/L (135-145); Total Protein 7.4 g/dL (6.5-8.0)
[2024-01-05 13:04] LABS: Vitamin D 25-OH Total 14.5 ng/mL (>30)
[2024-01-05 13:25] LABS: Folate 5.4 ng/mL (> or = 4.0)
[2024-01-05 13:39] LABS: Vitamin B12 291 pg/mL (200-900)
== END 2024-01-05 09:38 | disposition home or self-care (01) ==
LOC: HO.XRAY 09:37
PROVIDERS: PCP Physician Assistant; Visit Provider Physician Assistant
DX: Z13.1 Encounter for screening for diabetes mellitus (principal); M25.561 Pain in right knee; G89.29 Other chronic pain; M54.50 Low back pain, unspecified; R10.31 Right lower quadrant pain; M25.571 Pain in right ankle and joints of right foot; G62.9 Polyneuropathy, unspecified; E53.8 Deficiency of other specified B group vitamins
CPT/HCPCS: 36415; 72100; 72170; 73562; 73600; 80053; 82306; 82607; 82746

== ENCOUNTER 2024-02-03 08:45 | Outpatient (AMB) | payer OTHER, SELFPAY ==
[2024-02-03 09:16] VITALS: BP 122/72; TEMP 22.2; O2SAT 97; BMI 31.9
--- NOTE | 2024-02-03 09:16 | A.OFFPC_ITS ---
Vital Signs 3 02/03/24 09:16 Height 5 ft 5 in Weight 191 lb 8 oz BMI 31.9 BP 122/72 Blood Pressure Location Lt brachial Position Sitting Pulse Source Pulse Oximeter Temp 72 F L Pulse Oximetry (%) 97 Oxygen Delivery Method Room Air Intake Visit Reasons: Annual Exam Intake Note: Patient is here today for a physical. Deputy Chief Counsel Required: No Accompanied by: MONITOR TECHNICIAN Allergies hydromorphone [Dilaudid] Allergy (Unknown, Verified 02/03/24 09:25) Vomiting morphine [MORPHINE] Allergy (Unknown, Verified 02/03/24 09:25) VOMITTING From OXYCONTIN Allergy (Unknown, Uncoded 02/03/24 09:25) VOMITTING Vicodin Allergy (Unknown, Uncoded 02/03/24 09:25) Vomiting Medication List - Last Reconciled 02/03/24 by Pedro Cannon PA-C albuterol sulfate 90 mcg/actuation 2 puffs PO Q6H PRN carisoprodol (Soma) 350 mg PO BID 30 days cholecalciferol (vitamin D3) 50 mcg PO DAILY 90 days clonazepam 0.500f1 mg PO TID PRN fluticasone propionate 110 mcg/actuation (Flovent HFA) 1 puff inhalation BID 30 days furosemide (Lasix) 40 mg (2 x 20 mg) PO QAM 10 days mupirocin 2% 1 appl topical DAILY 15 days oxcarbazepine 300 mg PO TID pyridoxine (vitamin B6) 100 mg PO DAILY Tobacco use date assessed: 12/24/23 Dental Screening Dental Screen Date: 12/24/23 HPI Annual Exam 2 HPI0 Details Patient is a 48-year-old female here today for problem visit ? Patient has a past medical history significant for post-laminectomy syndrome, asthma, polyneuropathy ( Small fibroneuropathy) , retinitis, smoker, legally blind. Concern--> he reports having a mechanical fall 4months ago while walking and hiking, reports right groin pain, right knee and ankle pain. She does have significant bilateral lower extremity polyneuropathy to which she uses oxy carbamazepine and muscle relaxer for. We have gotten x-rays on the areas of her body she complained of pain though no significant fractures or dislocations. She continues to have bilateral bunions worse on right. She did see a rpg programmer in [place] though did not offer any treatment. She would like a 2nd opinion as he feels the reason for her balance issue is both her neuropathy and her significant right-sided bunion. ..' CHRONIC MEDICAL CONDITIONS--> Neuropathy: Patient continues on Soma to which she reports remarkable improvement in her pain and is able to walk 5-6 miles per day.? Has been able to reduce her weight due to being more physically active. We increased her dose to 1.5 tablets in the morning and 1 tablet at night. Of note has been able to lose significant amount of weight due to being more physically active since her pain has been better control. .. Cervical disc disease:? She does have a previous fusion of C4-C5, recently got x-ray showing proper intact hardware and evidence of osteophytes and arthritis.? She continues to have pain in her neck and intermittent swelling. She reports Soma is helping to relieve some of her pain. She has follow-up with [place] pain management for continued discussion about pain reduction modalities. .. Smoker:? Unfortunately continues to smoke a pack per day and reports her triggers are her home stress.? .. / bipolar disorder generalized anxiety disorder:? Has been restarted on Trileptal feels her mental health has improved.? Patient continues to follow a therapist and a mental health provider.? She continues with the p.r.n. use of clonazepam for anxiety with decent affect.?? Mammogram: Needs up-to-date mammogram- Declines mammo Colonoscopy: Colonoscopy done in 2020 hyperplastic polyp-10 years Vaccines: Up-to-date with COVID vaccine, up-to-date with tetanus vaccine, needs pneumonia vaccine (declines at this time) PFSH Medical History Polyneuropathy Smoker Chronic back pain [place] (hard of hearing) Asthma Depression PONV (postoperative nausea and vomiting) Metatarsus abductus Anxiety Usher syndrome Legally blind Hyponatremia Vaginal pain Cervical (neck) region somatic dysfunction Osteoarthritis of right knee Postlaminectomy syndrome Surgical History S/P tooth extraction Hx of colonoscopy History of back surgery History of fusion of cervical spine History of lumbar fusion History of hysterectomy Family History (Updated 02/03/24 @ 09:40 by Pedro Cannon PA-C) Father CAD (coronary artery disease) COPD (chronic obstructive pulmonary disease) Social History (Updated 02/03/24 @ 09:41 by Pedro Cannon PA-C) Housing: Apartment Alcohol intake: current Alcohol intake frequency: holidays/special occasions only Patient Tobacco Use Status: Current everyday Tobacco user Cigarette Packs Per Day: 1 Cigarettes Per Day: 20 Years Smoked: 34 e-Cigarette/Vaping Use: Currently Using service: No Current occupational status: disabled Current occupational exposures/hazards: No Sexual orientation: Straight/Heterosexual Gender identity: Female Cognitive needs: Yes (cane) Hearing needs: No Vision needs: Yes Questionnaire Thrive Questionnaire Date Thrive assessed: 12/24/23 JORDAN-7 AMB Questionnaire JORDAN-7 Date JORDAN - 7 assessed: 12/24/23 Source: Developed by Drs. Juwan Danielle, Chika Gallegos, Ravi Yuen and colleagues, with an educational chen from [employer]. Review of Systems Const Denies body aches, Denies chills, Denies excessive sweating, Denies fatigue, Denies fever(s) and Denies headache(s) Eyes Denies blurry vision ENT Denies dysphagia, Denies vertigo, Denies dizziness, Denies headache(s), Denies hearing loss and Denies tinnitus Card Denies chest pain, Denies chest pain with activity, Denies syncope, Denies irregular heart rhythm and Denies dyspnea Resp Denies chest congestion, Denies cough, Denies hemoptysis, Denies dyspnea and Denies wheezing GI Denies abdominal pain, Denies melena, Denies hematochezia, Denies coffee ground emesis, Denies dysphagia, Denies diarrhea, Denies nausea and Denies vomiting Denies urinary frequency, Denies dysuria, Denies urinary hesitancy and Denies urinary urgency Musc Reports back pain, Reports arthralgias, Denies limited range of motion, Denies muscle cramps, Denies muscle weakness, Reports numbness and Reports stiffness Skin/Breast Denies rash and Denies skin ulcer Neuro Denies Abnormal speech present, Denies confusion, Denies vertigo, Denies dizziness, Denies syncope, Denies headache(s), Denies memory loss, Reports numbness and Denies seizure-like activity Psych Denies anxiety, Denies confusion, Denies depression, Denies memory loss, Denies panic attacks and Denies paranoia Endo Denies excessive sweating, Denies fatigue, Denies flushing, Denies polydipsia and Denies polyuria Aller/Immun Denies wheezing Physical exam (Primary Care) Vital Signs: Last Vital Signs Temp 72 F L 02/03/24 09:16 BP 122/72 02/03/24 09:16 Pulse Ox 97 02/03/24 09:16 Oxygen Delivery Method Room Air 02/03/24 09:16 BMI result Body Mass Index 31.9 BMI Assessment/Plan discussion: High Tobacco/Smoking Status: Tobacco use Status Tobacco use date assessed 12/24/23 02/03/24 09:18 Patient Tobacco Use Status Current everyday Tobacco 02/03/24 09:41 Tobacco use type 01/05/24 09:37 e-Cigarette/Vaping Use Currently Using 02/03/24 09:41 Are you ready to quit: No Tobacco cessation counseling provided: Yes Items discussed: Nicotine replacement Relapse Prevention: discussed the importance of a supportive environment, discussed negative mood or depression after quitting, weight gain after smoking is common and discussed dietary, exercise and/or lifestyle changes Number of minutes spent counselin CPT code: 59650 - 4-10 Minutes Thrive Assessment: Date of Thrive Assessment Date Thrive assessed 12/24/23 02/03/24 09:18 Const Other: Obese General: cooperative, comfortable, no acute distress, alert and awake; No confusion Orientation/consciousness: oriented to person, oriented to place, patient oriented x3 and No confusion HENMT Head: Yes normocephalic Ears: external ears normal and TM's normal bilaterally Face and sinus: No sinus tenderness Mouth: Normal oral and palatal mucosa present and tongue normal Teeth and gingiva: dentition normal and gingiva normal Throat: Yes posterior oropharynx normal, Yes tonsils normal and Yes uvula midline Eyes Conjunctivae: conjunctivae normal Sclerae: sclerae normal Pupils: Equal, round and reactive pupils present EOM: EOMs intact bilaterally Direct Ophthalmoscopy: No no photophobia Neck Neck: Yes no lymphadenopathy, No tender and Yes no JVD Thyroid: Thyroid normal Carotids: no bruits Chest Chest palpation & inspection: no tenderness Resp Effort & Inspection: normal respiratory effort, no audible wheezes, not labored and no stridor Auscultation: no crackles, no rales, no rhonchi and no wheezes Cardio Jugular venous distension: no JVD Rate: regular rate, not bradycardic and not tachycardic Rhythm: regular rhythm Bruits: no carotid bruits Peripheral pulses: Peripheral pulses 2+ throughout GI Inspection: Yes normal to inspection, No abdominal wall ecchymosis and No visible herniation Palpation (GI): Soft to palpation, nontender, no guarding, not rigid and No hepatosplenomegaly present Auscultation: normoactive bowel sounds General: Yes no CVA tenderness Back/Spine/Pelvis Back: no CVA tenderness and No back tenderness Cervical Spine: cervical ROM normal Thoracic/Lumbar Spine: thoracic and lumbar spine normal to inspection, straight leg raise negative bilaterally, No thoraco-lumbar ROM limited and No lumbar spinal tenderness Skin Lesions: no lesions Rashes: no rashes Wounds: no wounds Neuro General: oriented to person, oriented to place, patient oriented x3, CN's II-XI intact bilaterally and No confusion Cranial nerves: Yes Equal, round and reactive pupils present and Yes Normal accommodation reflex present Cognition (Neuro): normal cognition Speech: No Abnormal speech present Gait exam (Neuro): Normal gait present Motor exam (neuro): 5/5 motor strength present throughout Extrem Right upper extremity: full ROM; no cyanosis Left upper extremity: full ROM; no cyanosis Right lower extremity: no edema Left lower extremity: no edema Ankle/foot/toe images: 2 1. SIGNIFICANT EXTERNAL ANGULATION OF RIGHT GREAT TOE Psych Appearance: grossly normal Mental Status: mental status grossly normal Affect: normal affect Attitude: cooperative Thought process: Normal thought process present Assessment and Plan Assessment & Plan (1) Annual physical exam: Code(s): Z00.00 - Encounter for general adult medical examination without abnormal findings (2) Tobacco dependence: Code(s): F17.200 - Nicotine dependence, unspecified, uncomplicated Plan: Unfortunately patient continues to smoke. She does understand she needs to quit smoking though has found it very difficult to do so. Does have nicotine patches available to her and will try to reduce her smoking on her own. (3) COPD (chronic obstructive pulmonary disease): Code(s): J44.9 - Chronic obstructive pulmonary disease, unspecified Qualifiers: COPD type: chronic bronchitis Chronic bronchitis type: simple Q ualified Code(s): J41.0 - Simple chronic bronchitis Plan: Patient has been smoking since she was a teenager. She does report having some shortness of breath on physical activity. Will consider PFT again. Will start maintenance inhaler for better control over her pulmonary symptoms.. AGAIN ADVISED TO QUIT SMOKING (4) Polyneuropathy: Code(s): G62.9 - Polyneuropathy, unspecified Plan: Continues with the use Soma which has given her excellent pain relief. She reports she has been walking 5-6 miles per day and has been able to reduce her weight significantly over the last year. (5) Obese: Code(s): E66.9 - Obesity, unspecified Qualifiers: Body mass index: BMI 34.0-34.9 Obesity classification: adult class 1 (BMI 30 - 34.9) Obesity type: due to excess calories Serious obesity comorbidity presence: without serious comorbidity Qualified Code(s): E66.09 - Other obesity due to excess calories; Z68.34 - Body mass index [BMI] 34.0-34.9, adult Plan: Patient does understand her BMI is over 30, has lost weight since last office visit due to being more physically active. Will continue on being physically active to reduce her weight. (6) Bunion of right foot: Code(s): M21.611 - Bunion of right foot Plan: Continues to have right foot pain that has been causing her issues with her balance. She reports having multiple falls. Has seen a rpg programmer in [place] though did not appreciate the service and offer treatment. She would like a 2nd opinion from a new rpg programmer possibly surgical evaluation for bunionectomy. (7) Sensorineural hearing loss (SNHL) of both ears: Code(s): H90.3 - Sensorineural hearing loss, bilateral Plan: Continues to use amplification, she reports she does need new hearing aids and would like and re-evaluation for new hearing aids pain (8) Constipation: Code(s): K59.00 - Constipation, unspecified Qualifiers: Constipation type: slow transit constipation Qualified Code(s): K59.01 - Slow transit constipation Plan: Reports having constipation and would like a liquid laxative. Will supply patient with short-term script of lactulose to use on a p.r.n. basis for his laxative affect. (9) Bipolar 1 disorder: Code(s): F31.9 - Bipolar disorder, unspecified Plan: Patient continues on mood stabilization which has been helpful for her. SHE CONTINUES TO SEE A MENTAL HEALTH THERAPIST AND HIM MENTAL HEALTH MED PROVIDER. (10) Breast cancer screening: Code(s): Z12.39 - Encounter for other screening for malignant neoplasm of breast Qualifiers: Breast cancer screening modality: mammogram Qualified Code(s): Z12.31 - Encounter for screening mammogram for malignant neoplasm of breast Plan: DECLINING TO GET MAMMOGRAM AT THIS TIME. Orders: Orders 2 Comprehensive [place]. Panel Fast 02/03/24 Z13.1 - Encounter for screening for diabetes mellitus Complete Blood Count no Diff 02/03/24 J45.20 - Mild intermittent asthma, uncomplicated Referrals 2 Podiatry Referral M21.611 - Bunion of right foot Ear/Nose/Throat Referral H90.3 - Sensorineural hearing loss, bilateral Medications: New 2 mometasone 100 mcg/actuation 2 puffs inhalation BID 30 days 13 grams 3RF J41.0 - Simple chronic bronchitis lactulose 20 grams (30 mL) PO BID 10 days PRN 600 mL 0RF constipation K59.01 - Slow transit constipation Refilled 2 furosemide (Lasix) 40 mg (2 x 20 mg) PO QAM 10 days 20 tabs 1RF R60.0 - Localized edema Discontinued 2 fluticasone propionate 110 mcg/actuation (Flovent HFA) Discontinued Reason: Doctor's Order 1 puff inhalation BID 30 days 12 grams 3RF J41.0 - Simple chronic bronchitis Coding Level of Care Code Est Pt Prev Care 40-64y(75303) Diagnoses Annual physical exam Z00.00 Tobacco dependence F17.200 Simple chronic bronchitis J41.0 COPD type: chronic bronchitis Chronic bronchitis type: simple Polyneuropathy G62.9 Class 1 obesity due to excess calories without serious comorbidity with body mass index (BMI) of 34.0 to 34.9 in adult E66.09; Z68.34 Body mass index: BMI 34.0-34.9 Obesity classification: adult class 1 (BMI 30 - 34.9) Obesity type: due to excess calories Serious obesity comorbidity presence: without serious comorbidity Bunion of right foot M21.611 Sensorineural hearing loss (SNHL) of both ears H90.3 Slow transit constipation K59.01 Constipation type: slow transit constipation Bipolar 1 disorder F31.9 Encounter for screening mammogram for malignant neoplasm of breast Z12.31 Breast cancer screening modality: mammogram Additional Codes Vital Signs *Quality* - CPT code: 43670 - 4-10 Minutes ([id number])
== END 2024-02-03 10:04 | disposition home or self-care (01) ==
PROVIDERS: Visit Provider Physician Assistant
DX: Z00.00 Encounter for general adult medical examination without abnormal findings (principal); J41.0 Simple chronic bronchitis; G62.9 Polyneuropathy, unspecified; F17.210 Nicotine dependence, cigarettes, uncomplicated; E66.09 Other obesity due to excess calories; Z68.34 Body mass index [BMI] 34.0-34.9, adult; M21.611 Bunion of right foot; H90.3 Sensorineural hearing loss, bilateral; K59.01 Slow transit constipation
CPT/HCPCS: 99396

== ENCOUNTER 2024-05-17 08:39 | Outpatient (AMB) | payer OTHER, SELFPAY ==
--- NOTE | 2024-05-17 08:43 | A.OFFPC_ITS ---
Vital Signs 05/17/24 08:45 Height 5 ft 5 in Weight 191 lb 8 oz BMI 31.9 BP 120/70 Blood Pressure Location Lt brachial Position Sitting Pulse 80 Pulse Source Pulse Oximeter Pulse Oximetry (%) 97 Oxygen Delivery Method Room Air Intake Visit Reasons: Follow-up asthma, smoking cessation Intake Note: Patient is here to follow up on Asthma and smoking cessation. Quilting Machine Helper Required: No Field Hauler: Present Accompanied by: staff Allergies hydromorphone [Dilaudid] Allergy (Unknown, Verified 05/17/24 08:55) Vomiting morphine [MORPHINE] Allergy (Unknown, Verified 05/17/24 08:55) VOMITTING From OXYCONTIN Allergy (Unknown, Uncoded 05/17/24 08:55) VOMITTING Vicodin Allergy (Unknown, Uncoded 05/17/24 08:55) Vomiting Medication List - Last Reconciled 05/17/24 by Pedro Cannon PA-C albuterol sulfate 90 mcg/actuation 2 puffs PO Q6H PRN carisoprodol (Soma) 350 mg PO BID 30 days cholecalciferol (vitamin D3) 50 mcg PO DAILY 90 days citalopram 20 mg PO DAILY clonazepam 0.500f1 mg PO TID PRN furosemide (Lasix) 40 mg (2 x 20 mg) PO QAM 10 days lactulose 20 grams (30 mL) PO BID PRN 10 days mometasone 100 mcg/actuation 2 puffs inhalation BID 30 days mupirocin 2% 1 appl topical DAILY 15 days oxcarbazepine 300 mg PO TID oxcarbazepine mg PO DAILY pyridoxine (vitamin B6) 100 mg PO DAILY trazodone 50 mg PO BEDTIME Tobacco use date assessed: 05/17/24 Dental Screening Dental Screen Date: 12/24/23 HPI Follow-up asthma, smoking cessation HPI Details Patient is a 48-year-old female here today for problem visit ? Patient has a past medical history significant for post-laminectomy syndrome, asthma, polyneuropathy ( Small fibroneuropathy) , retinitis, smoker, legally blind. Concern--> he reports having a mechanical fall 4months ago while walking and hiking, reports right groin pain, right knee and ankle pain. She does have significant bilateral lower extremity polyneuropathy to which she uses oxy carbamazepine and muscle relaxer for. We have gotten x-rays on the areas of her body she complained of pain though no significant fractures or dislocations. She continues to have bilateral bunions worse on right. She did see a broadcast news producer in [place] though did not offer any treatment. She would like a 2nd opinion from orthopedic surgeon about a bunionectomy. ..' CHRONIC MEDICAL CONDITIONS--> Neuropathy: Patient continues on Soma to which she reports remarkable improvement in her pain and is able to walk 5-6 miles per day.? Has been able to reduce her weight due to being more physically active. We increased her dose to 1.5 tablets in the morning and 1 tablet at night. Of note has been able to lose significant amount of weight due to being more physically active since her pain has been better control. .. .. Smoker:? Unfortunately continues to smoke a pack per day and reports her triggers are her home stress.? She reports smoking more as of late. .. / bipolar disorder generalized anxiety disorder:? Has been restarted on Trileptal feels her mental health has improved.? She has been started on SSRI therapy as well.. Patient continues to follow a therapist and a mental health provider.? She continues with the p.r.n. use of clonazepam for anxiety with decent affect.?? PFSH Medical History Polyneuropathy Smoker Chronic back pain [place] (hard of hearing) Asthma Depression PONV (postoperative nausea and vomiting) Metatarsus abductus Anxiety Usher syndrome Legally blind Hyponatremia Vaginal pain Cervical (neck) region somatic dysfunction Osteoarthritis of right knee Postlaminectomy syndrome Surgical History S/P tooth extraction Hx of colonoscopy History of back surgery History of fusion of cervical spine History of lumbar fusion History of hysterectomy Family History Father CAD (coronary artery disease) COPD (chronic obstructive pulmonary disease) Social History Housing: Apartment Alcohol intake: current Alcohol intake frequency: holidays/special occasions only Patient Tobacco Use Status: Current everyday Tobacco user Tobacco use type: Cigarette Cigarette Packs Per Day: 1.5 Cigarettes Per Day: 30 Years Smoked: 34 e-Cigarette/Vaping Use: Currently Using service: No Current occupational status: disabled Current occupational exposures/hazards: No Sexual orientation: Straight/Heterosexual Gender identity: Female Cognitive needs: Yes (cane) Hearing needs: No Vision needs: Yes Questionnaire Thrive Questionnaire Date Thrive assessed: 12/24/23 JORDAN-7 AMB Questionnaire JORDAN-7 Date JORDAN - 7 assessed: 12/24/23 Source: Developed by Drs. Juwan Danielle, Chika Gallegos, Ravi Yuen and colleagues, with an educational chen from [employer]. Review of Systems Const Denies headache(s) Eyes Denies loss of vision ENT Denies vertigo, Denies dizziness, Denies headache(s) and Denies sore throat Card Denies chest pain, Denies leg edema and Denies lightheadedness Resp Denies cough, Denies hemoptysis and Denies wheezing GI Denies abdominal pain, Denies melena, Denies constipation, Denies diarrhea and Denies vomiting Denies urinary frequency, Denies dysuria and Denies urinary urgency Musc Denies arthralgias, Denies joint swelling, Denies numbness and Denies tingling Neuro Denies Abnormal speech present, Denies behavioral changes, Denies vertigo, Denies dizziness, Denies headache(s), Denies loss of vision, Denies memory loss, Denies numbness and Denies tingling Psych Denies anxiety, Denies behavioral changes, Denies depression, Denies memory loss and Denies panic attacks Silvestre/Lymph Denies easy bleeding and Denies easy bruising Aller/Immun Denies wheezing Physical exam (Primary Care) Vital Signs: Last Vital Signs Pulse 80 05/17/24 08:45 BP 120/70 05/17/24 08:45 Pulse Ox 97 05/17/24 08:45 Oxygen Delivery Method Room Air 05/17/24 08:45 BMI result Body Mass Index 31.9 Tobacco/Smoking Status: Tobacco use Status Tobacco use date assessed 05/17/24 05/17/24 08:51 Patient Tobacco Use Status Current everyday Tobacco 05/17/24 08:51 Tobacco use type Cigarette 05/17/24 08:51 e-Cigarette/Vaping Use Currently Using 05/17/24 08:51 Are you ready to quit: No Tobacco cessation counseling provided: Yes Items discussed: Nicotine replacement Relapse Prevention: discussed the importance of a supportive environment, weight gain after smoking is common and discussed dietary, exercise and/or lifestyle changes Number of minutes spent counselin CPT code: 68972 - 4-10 Minutes Thrive Assessment: Date of Thrive Assessment Date Thrive assessed 12/24/23 05/17/24 08:51 Const General: healthy appearing, no acute distress, alert and awake Nutritional Appearance: well nourished Orientation/consciousness: oriented to person, oriented to place and oriented to time HENMT Ears: TM's normal bilaterally General nose exam: Normal nasal mucous membranes and turbinates present Eyes Conjunctivae: conjunctivae normal Sclerae: sclerae normal Pupils: Equal, round and reactive pupils present Neck Neck: Yes no lymphadenopathy and Yes no JVD Thyroid: Thyroid normal Carotids: no bruits Resp Effort & Inspection: normal respiratory effort and not tachypneic Auscultation: no crackles, no rales, no rhonchi and no wheezes Cardio Rate: regular rate Rhythm: regular rhythm Heart sounds: no murmurs and normal S1 and S2 GI Palpation (GI): Soft to palpation, nontender, no hepatomegaly and no splenomegaly Auscultation: normal bowel sounds Skin General skin exam: no rashes or lesions noted and dry skin Neuro General: oriented to person, oriented to place and oriented to time Cranial nerves: Yes Equal, round and reactive pupils present Speech: No Abnormal speech present Gait exam (Neuro): Normal gait present Motor exam (neuro): no tremor noted Extrem Right upper extremity: full ROM Left upper extremity: full ROM Right lower extremity: full ROM; no edema Left lower extremity: full ROM; no edema Psych Mental Status: mental status grossly normal Speech and movement: Normal speech and movement present Affect: normal affect Attitude: cooperative Thought process: Normal thought process present Assessment and Plan Assessment & Plan (1) COPD (chronic obstructive pulmonary disease): Code(s): J44.9 - Chronic obstructive pulmonary disease, unspecified Qualifiers: COPD type: chronic bronchitis Chronic bronchitis type: simple Qualified Code(s): J41.0 - Simple chronic bronchitis Plan: Patient has been smoking since she was a teenager. She admits to smoking over a pack of cigarettes per day now. She does report having some shortness of breath on physical activity. Will consider PFT again. AGAIN ADVISED TO QUIT SMOKING (2) Tobacco dependence: Code(s): F17.200 - Nicotine dependence, unspecified, uncomplicated Plan: Unfortunately patient continues to smoke. She does understand she needs to quit smoking though has found it very difficult to do so. Does have nicotine patches available to her and will try to reduce her smoking on her own. (3) Polyneuropathy: Code(s): G62.9 - Polyneuropathy, unspecified Plan: Continues with the use Soma which has given her excellent pain relief. She has reduced the amount of walking she has been doing due to her balance and polyneuropathy. (4) Sensorineural hearing loss (SNHL) of both ears: Code(s): H90.3 - Sensorineural hearing loss, bilateral Plan: Continues to use amplification, she reports she does need new hearing aids and would like and re-evaluation for new hearing aids pain (5) Bipolar 1 disorder: Code(s): F31.9 - Bipolar disorder, unspecified Plan: Recently started on SSRI therapy by her psychiatric provider.. Patient continues on mood stabilization which has been helpful for her. SHE CONTINUES TO SEE A MENTAL HEALTH THERAPIST AND [facility] MENTAL HEALTH MED PROVIDER. (6) Bunion of right foot: Code(s): M21.611 - Bunion of right foot Plan: Continues to have difficulty with balance and she attributes to both her neuropathy and her right foot bunion. She would like to see a surgeon about a bunionectomy. 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 Continues to difficulties her vision and balance. She is not interested in physical therapy at this time. Orders: Referrals Orthopedics Referral M21.611 - Bunion of right foot Medications: Refilled furosemide (Lasix) 40 mg (2 x 20 mg) PO QAM 10 days 20 tabs 3RF R60.0 - Localized edema Coding Level of Care Code Est Pt Level 4 (99117) Diagnoses Simple chronic bronchitis J41.0 COPD type: chronic bronchitis Chronic bronchitis type: simple Tobacco dependence F17.200 Polyneuropathy G62.9 Sensorineural hearing loss (SNHL) of both ears H90.3 Bipolar 1 disorder F31.9 Bunion of right foot M21.611 Usher syndrome H35.52; H90.3 Additional Codes Vital Signs *Quality* - CPT code: 63155 - 4-10 Minutes ([id number])
[2024-05-17 08:45] VITALS: BP 120/70; PULSE 80; O2SAT 97; BMI 31.9
== END 2024-05-17 09:14 | disposition home or self-care (01) ==
PROVIDERS: PCP Physician Assistant; Visit Provider Physician Assistant
DX: J41.0 Simple chronic bronchitis (principal); F31.9 Bipolar disorder, unspecified; F17.210 Nicotine dependence, cigarettes, uncomplicated; G62.9 Polyneuropathy, unspecified; H90.3 Sensorineural hearing loss, bilateral; M21.611 Bunion of right foot; H35.52 Pigmentary retinal dystrophy
CPT/HCPCS: 99214

== ENCOUNTER 2024-07-19 10:23 | Outpatient (REF) | payer OTHER, SELFPAY ==
[2024-07-19 13:17] LABS: Hematocrit 44.8 % (37.0-47.0); Hemoglobin 15.6 g/dl (12.0-16.0); Mean Corpuscular HGB Conc 34.8 g/dl (31.0-35.0); Mean Corpuscular Hemoglobin 31.1 pg (27.0-33.0); Mean Corpuscular Volume 89.2 fL (80.0-98.0); Mean Platelet Volume 9.2 fL (9.4-12.3); Platelet Count 201 X10*3/uL (160-400); Red Blood Count 5.02 X10*6/uL (4.20-5.50); Red Cell Distribution Width 13.4 % (11.0-16.0); White Blood Count 7.9 X10*3/uL (4.8-10.8)
[2024-07-19 13:50] LABS: Alanine Aminotransferase 36 U/L (0-31); Albumin Level 4.2 g/dL (3.5-5.0); Alkaline Phosphatase 83 U/L (39-117); Anion Gap 11 (12-20); Aspartate Amino Transferase 24 U/L (5-31); Bilirubin Total 0.5 mg/dL (0.0-1.0); Blood Urea Nitrogen 11 mg/dL (9-16); Calcium 9.2 mg/dL (8.4-10.2); Carbon Dioxide 30 mmol/L (22-29); Chloride 99 mmol/L (96-108); Estimated Glomerular Filt Rate > 60; Glucose Fasting 94 mg/dL (60-99); Potassium 4.3 mmol/L (3.3-5.1); Sodium 136 mmol/L (135-145); Total Protein 7.7 g/dL (6.5-8.0)
[2024-07-19 13:55] LABS: Anion Gap 11 (12-20); Blood Urea Nitrogen 11 mg/dL (9-16); Calcium 9.3 mg/dL (8.4-10.2); Carbon Dioxide 30 mmol/L (22-29); Chloride 99 mmol/L (96-108); Estimated Glomerular Filt Rate > 60; Glucose Fasting 94 mg/dL (60-99); Potassium 4.3 mmol/L (3.3-5.1); Sodium 136 mmol/L (135-145)
== END 2024-07-19 10:24 | disposition home or self-care (01) ==
LOC: HO.10HDL 10:23
PROVIDERS: Referring Provider Nurse Practitioner Psychiatric/Mental Health; Visit Provider Physician Assistant
DX: Z13.1 Encounter for screening for diabetes mellitus (principal); J45.20 Mild intermittent asthma, uncomplicated; F41.1 Generalized anxiety disorder; F31.0 Bipolar disorder, current episode hypomanic; Z79.899 Other long term (current) drug therapy
CPT/HCPCS: 36415; 80048; 80053; 85027

== ENCOUNTER 2025-02-08 09:28 | Outpatient (AMB) | payer OTHER, SELFPAY ==
[2025-02-08 10:06] VITALS: BP 150/96; PULSE 78; TEMP 36.2; O2SAT 98; BMI 35.5
--- NOTE | 2025-02-08 10:06 | MHC.PC.OV ---
Vital Signs 02/08/25 10:06 Height 5 ft 5 in Weight 213 lb 8 oz BMI 35.5 BP 150/96 H Blood Pressure Location Lt brachial Position Sitting Pulse 78 Pulse Source Pulse Oximeter Temp 97.1 F Temp Source Temporal Artery Scan Pulse Oximetry (%) 98 Oxygen Delivery Method Room Air Intake Visit Reasons: annual exam Pouch Maker Required: No Allergies hydromorphone [Dilaudid] Allergy (Unknown, Verified 05/17/24 08:55) Vomiting morphine [MORPHINE] Allergy (Unknown, Verified 05/17/24 08:55) VOMITTING From OXYCONTIN Allergy (Unknown, Uncoded 05/17/24 08:55) VOMITTING Vicodin Allergy (Unknown, Uncoded 05/17/24 08:55) Vomiting Tobacco use date assessed: 05/17/24 Dental Screening Dental Screen Date: 12/24/23 PFS Medical History Polyneuropathy Smoker Chronic back pain [place] (hard of hearing) Asthma Depression PONV (postoperative nausea and vomiting) Metatarsus abductus Anxiety Usher syndrome Legally blind Hyponatremia Vaginal pain Cervical (neck) region somatic dysfunction Osteoarthritis of right knee Postlaminectomy syndrome Surgical History S/P tooth extraction Hx of colonoscopy History of back surgery History of fusion of cervical spine History of lumbar fusion History of hysterectomy Family History Father CAD (coronary artery disease) COPD (chronic obstructive pulmonary disease) Social History Housing: Apartment Alcohol intake: current Alcohol intake frequency: holidays/special occasions only Patient Tobacco Use Status: Current everyday Tobacco user Tobacco use type: Cigarette Cigarette Packs Per Day: 1.5 Cigarettes Per Day: 30 Years Smoked: 34 e-Cigarette/Vaping Use: Currently Using service: No Current occupational status: disabled Current occupational exposures/hazards: No Sexual orientation: Straight/Heterosexual Gender identity: Female Cognitive needs: Yes (cane) Hearing needs: No Vision needs: Yes Questionnaire Thrive Questionnaire Date Thrive assessed: 12/24/23 JORDAN-7 AMB Questionnaire JORDAN-7 Date JORDAN - 7 assessed: 12/24/23 Source: Developed by Drs. Juwan Danielle, Chika Gallegos, Ravi Yuen and colleagues, with an educational chen from [employer]. Physical exam (Primary Care) Tobacco/Smoking Status: Tobacco use Status Tobacco use date assessed 05/17/24 05/17/24 08:51 Patient Tobacco Use Status Current everyday Tobacco 05/17/24 08:51 Tobacco use type Cigarette 05/17/24 08:51 e-Cigarette/Vaping Use Currently Using 05/17/24 08:51 Thrive Assessment: Date of Thrive Assessment Date Thrive assessed 12/24/23 05/17/24 08:51 Coding
--- NOTE | 2025-02-08 10:15 | A.OFFPC_ITS ---
Vital Signs 02/08/25 10:06 Height 5 ft 5 in Weight 213 lb 8 oz BMI 35.5 BP 150/96 H Blood Pressure Location Lt brachial Position Sitting Pulse 78 Pulse Source Pulse Oximeter Temp 97.1 F Temp Source Temporal Artery Scan Pulse Oximetry (%) 98 Oxygen Delivery Method Room Air Intake Visit Reasons: Fell against a beam, resulting in neck pain Intake Note: Patient presents for an office visit to follow up on a fall that occurred in September 2024. At that time, the patient fell and struck a beam, feeling a crack in her neck. She did not seek evaluation at the emergency room. The patient denies experiencing any pain following the incident. She also reports ongoing balance issues, which she attributes to hearing loss. Analysis Consultant Required: No Accompanied by: Self / Same As Patient Allergies hydromorphone [Dilaudid] Allergy (Unknown, Verified 02/08/25 10:38) Vomiting morphine [MORPHINE] Allergy (Unknown, Verified 02/08/25 10:38) VOMITTING From OXYCONTIN Allergy (Unknown, Uncoded 02/08/25 10:38) VOMITTING Vicodin Allergy (Unknown, Uncoded 02/08/25 10:38) Vomiting Medication List - Last Reconciled 02/08/25 by Pedro Cannon PA-C albuterol sulfate 90 mcg/actuation 2 puffs PO Q6H PRN carisoprodol (Soma) 350 mg PO BID 30 days cholecalciferol (vitamin D3) 50 mcg PO DAILY 90 days citalopram 20 mg PO DAILY clonazepam 0.500f1 mg PO TID PRN furosemide (Lasix) 40 mg (2 x 20 mg) PO QAM 10 days lactulose 20 grams (30 mL) PO BID PRN 10 days mometasone 100 mcg/actuation 2 puffs inhalation BID 30 days mupirocin 2% 1 appl topical DAILY 15 days oxcarbazepine 300 mg PO TID oxcarbazepine mg PO DAILY pyridoxine (vitamin B6) 100 mg PO DAILY tizanidine 4 mg PO BID 30 days trazodone 50 mg PO BEDTIME Tobacco use date assessed: 02/08/25 Dental Screening Dental Screen Date: 02/08/25 Did you have a dental visit in the last 12 months?: Yes Did you have a dental problem in the last 6 months where you did not have access to dental care?: No Was dental information given to patient?: Patient has dentist HPI Fell against a beam, resulting in neck pain HPI Details The patient is a 49-year-old female presenting with complaints of neck pain and blurred vision occurring since an incident in September where she accidentally hit her head but initially did not experience pain. Her neck status is compromised, given her history of two prior neck surgeries, adding to her current challenges in mobility and activity. Blurred vision in the right eye presented suddenly, and vertigo episodes have been accounted for, significantly affecting her daily activities and balance. She has a history of hypertension, which is presently under cautious watch given pain-induced spikes, and reports of increased anxiety linked with pain management. Weight gain over recent months is recorded due to reduced activity; her exercise is inhibited by vertigo and vision difficulties, in addition to environmental barriers such as unsafe traffic conditions. A suspected abdominal hernia is also noted, with records of prior surgical interventions complicating the identification of issues. The patient remains focused on optimizing her health, discussing alternative medications and the effects of lifestyle changes. [facility] Medical History Polyneuropathy Smoker Chronic back pain [place] (hard of hearing) Asthma Depression PONV (postoperative nausea and vomiting) Metatarsus abductus Anxiety Usher syndrome Legally blind Hyponatremia Vaginal pain Cervical (neck) region somatic dysfunction Osteoarthritis of right knee Postlaminectomy syndrome Surgical History S/P tooth extraction Hx of colonoscopy History of back surgery History of fusion of cervical spine History of lumbar fusion History of hysterectomy Family History Father CAD (coronary artery disease) COPD (chronic obstructive pulmonary disease) Social History Housing: Apartment Alcohol intake: current Alcohol intake frequency: holidays/special occasions only Patient Tobacco Use Status: Current everyday Tobacco user Tobacco use type: Cigarette Cigarette Packs Per Day: 1.5 Cigarettes Per Day: 30 Years Smoked: 34 e-Cigarette/Vaping Use: Currently Using service: No Current occupational status: disabled Current occupational exposures/hazards: No Sexual orientation: Straight/Heterosexual Gender identity: Female Cognitive needs: Yes (cane) Hearing needs: No Vision needs: Yes Questionnaire PHQ-9 Over the last 2 weeks, how often have you been bothered by any of the following problems? 1. Little interest or pleasure in doing things: not at all 2. Feeling down, depressed, or hopeless: not at all 3. Trouble falling or staying asleep, or sleeping too much: not at all 4. Feeling tired or having little energy: not at all 5. Poor appetite or overeating: not at all 6. Feeling bad about yourself - or that you are a failure or have let yourself or your family down: not at all 7. Trouble concentrating on things, such as reading the newspaper or watching television: not at all 8. Moving or speaking so slowly that other people could have noticed. Or the opposite - being so fidgety or restless that you have been moving around a lot more than usual: not at all 9. Thoughts that you would be better off or of hurting yourself in some way: not at all Total score: 0 Depression Screening Interpretation: Negative Depression Screening Done: Yes 09758 - PHQ-9 Billing: Yes Source: Developed by Drs. Juwan Danielle, Chika Gallegos, Ravi Yuen and colleagues, with an educational chen from [employer]. Thrive Questionnaire Date Thrive assessed: 02/08/25 I am a: Patient What is your living situation today?: I have a steady place to live Within the past 12 months, did the food you bought not last and you didn't have the money to get more?: Never true Within the past 12 months, did you worry whether your food would run out before you got money to buy more?: Never true Do you have trouble paying for medicines?: No Do you have trouble getting transportation to medical appointments?: No Do you have trouble paying your heating and electricity bill?: No Do you have trouble taking care of your child, family member or friend?: No Do you have trouble with day-to-day activities such as bathing, preparing meals, shopping, managing finances, etc.?: No Are you currently unemployed and looking for a job?: No Are you interested in more education?: No Please select the resources that you would like help with: None Currently or been in a relationship where the following occur: No concerns reported THRIVE Score: 0 AUDIT C Alcohol Use Questionnaire (AUDIT-C) 1. How often do you have a drink containing alcohol?: Monthly or less 2. How many drinks containing alcohol do you have on a typical day when you are drinking?: 1 or 2 3. How often do you have six or more drinks on one occasion?: Never Total Score: 1 JORDAN-7 AMB Questionnaire JORDAN-7 Date JORDAN - 7 assessed: 02/08/25 Feeling nervous, anxious, or on edge: 0 = Not at all Not being able to stop or control worryin = Not at all Worrying too much about different things: 0 = Not at all Trouble relaxin = Not at all Being so restless that it is hard to sit still: 0 = Not at all Becoming easily annoyed or irritable: 0 = Not at all Feeling afraid as if something awful might happen: 0 = Not at all Total JORDAN-7 score (0-4 normal; 5-9 mild; 10-14 moderate; 15-21 severe): 0 Source: Developed by Drs. Juwan Danielle, Chika Gallegos, Ravi Yuen and colleagues, with an educational chen from [employer]. JORDAN-7 Assessment Billing JORDAN-7 Assessment Tool: JORDAN-7 Assessment 93583 Review of Systems Const Denies headache(s) Eyes Denies loss of vision ENT Denies vertigo, Denies dizziness, Denies headache(s) and Denies sore throat Card Denies chest pain, Denies leg edema and Denies lightheadedness Resp Denies cough, Denies hemoptysis and Denies wheezing GI Denies abdominal pain, Denies melena, Denies constipation, Denies diarrhea and Denies vomiting Denies urinary frequency, Denies dysuria and Denies urinary urgency Musc Denies arthralgias, Denies joint swelling, Denies numbness and Denies tingling Neuro Denies Abnormal speech present, Denies behavioral changes, Denies vertigo, Denies dizziness, Denies headache(s), Denies loss of vision, Denies memory loss, Denies numbness and Denies tingling Psych Denies anxiety, Denies behavioral changes, Denies depression, Denies memory loss and Denies panic attacks Silvestre/Lymph Denies easy bleeding and Denies easy bruising Aller/Immun Denies wheezing Physical exam (Primary Care) Vital Signs: Last Vital Signs Temp 97.1 F 02/08/25 10:06 Pulse 78 02/08/25 10:06 BP 150/96 H 02/08/25 10:06 Pulse Ox 98 02/08/25 10:06 Oxygen Delivery Method Room Air 02/08/25 10:06 BMI result Body Mass Index 35.5 Tobacco/Smoking Status: Tobacco use Status Tobacco use date assessed 02/08/25 02/08/25 10:17 Patient Tobacco Use Status Current everyday Tobacco 02/08/25 10:17 Tobacco use type Cigarette 02/08/25 10:17 e-Cigarette/Vaping Use Currently Using 02/08/25 10:17 PHQ-9: PHQ-9 Score PHQ-9: Total score 0 02/08/25 10:44 Depression Screening Interpretation: Negative Thrive Assessment: Date of Thrive Assessment Date Thrive assessed 02/08/25 02/08/25 10:17 Currently or been in a relationship where the following occur: No concerns reported Const General: healthy appearing, no acute distress, alert and awake Nutritional Appearance: well nourished Orientation/consciousness: oriented to person, oriented to place and oriented to time HENMT Ears: TM's normal bilaterally General nose exam: Normal nasal mucous membranes and turbinates present Eyes Conjunctivae: conjunctivae normal Sclerae: sclerae normal Pupils: Equal, round and reactive pupils present Neck Neck: Yes no lymphadenopathy and Yes no JVD Thyroid: Thyroid normal Carotids: no bruits Resp Effort & Inspection: normal respiratory effort and not tachypneic Auscultation: no crackles, no rales, no rhonchi and no wheezes Cardio Rate: regular rate Rhythm: regular rhythm Heart sounds: no murmurs and normal S1 and S2 GI Palpation (GI): Soft to palpation, nontender, no hepatomegaly and no splenomegaly Auscultation: normal bowel sounds Skin General skin exam: no rashes or lesions noted and dry skin Neuro General: oriented to person, oriented to place and oriented to time Cranial nerves: Yes Equal, round and reactive pupils present Speech: No Abnormal speech present Gait exam (Neuro): Normal gait present Motor exam (neuro): no tremor noted Extrem Right upper extremity: full ROM Left upper extremity: full ROM Right lower extremity: full ROM; no edema Left lower extremity: full ROM; no edema Psych Mental Status: mental status grossly normal Speech and movement: Normal speech and movement present Affect: normal affect Attitude: cooperative Thought process: Normal thought process present Coding Level of Care Code Est Pt Level 4 (30853) Diagnoses Radiculopathy of cervical spine M54.12 Lower extremity edema R60.0 LUQ abdominal pain R10.12 Tobacco dependence F17.200 Additional Codes JORDAN-7 Assessment Billing - JORDAN-7 Assessment Tool: JORDAN-7 Assessment 63947 ([id number]) PHQ-9 - 95853 - PHQ-9 Billing: Yes ([id number]) Assessment & Plan Assessment & Plan (1) Radiculopathy of cervical spine: Code(s): M54.12 - Radiculopathy, cervical region Category: Medical Plan: The plan includes increasing tizanidine doses to 12 mg daily in divided doses. An x-ray is ordered for cervical spine assessment post-impact. We did discuss the possibility and doing physical therapy though she declines at this time. (2) Lower extremity edema: Code(s): R60.0 - Localized edema Category: Medical Plan: Patient was previously on furosemide for lower extremity edema which seems to have lost his effectiveness. Will transition to torsemide 40 mg every other day. (3) LUQ abdominal pain: Code(s): R10.12 - Left upper quadrant pain Category: Medical Plan: An ultrasound has been organized to evaluate symptoms indicative of a hernia. (4) Tobacco dependence: Code(s): F17.200 - Nicotine dependence, unspecified, uncomplicated Category: Medical Plan: Patient does understand she needs to quit smoking though has found it very difficult to do so. She is not interested in quitting smoking at this time. Orders: Orders XR cervical spine 4V Today M54.12 - Radiculopathy, cervical region XR chest 2V Today F17.200 - Nicotine dependence, unspecified, uncomplicated Syphilis Screen Today Z11.3 - Encounter for screening for infections with a predominantly sexual mode of transmission Comprehensive [place]. Panel Fast Today Z13.1 - Encounter for screening for diabetes mellitus Complete Blood Count no Diff Today Z13.1 - Encounter for screening for diabetes mellitus US abdomen complete Today R10.12 - Left upper quadrant pain HIV Ab/Ag Today Z11.3 - Encounter for screening for infections with a predominantly sexual mode of transmission Medications: New torsemide 40 mg (2 x 20 mg) PO .anayeli other day 30 tabs 3RF 30 days R60.0 - Localized edema Changed From tizanidine 4 mg PO BID 30 days 60 tabs 1RF muscle spasticity M47.812 - Spondylosis without myelopathy or radiculopathy, cervical region To tizanidine 4 mg PO TID 90 tabs 3RF muscle spasticity 30 days M47.812 - Spondylosis without myelopathy or radiculopathy, cervical region Refilled mometasone 100 mcg/actuation 2 puffs inhalation BID 13 grams 3RF 30 days J41.0 - Simple chronic bronchitis Discontinued furosemide (Lasix) Discontinued Reason: Doctor's Order 40 mg (2 x 20 mg) PO QAM 10 days 20 tabs 3RF R60.0 - Localized edema
== END 2025-02-08 11:06 | disposition home or self-care (01) ==
PROVIDERS: PCP Physician Assistant; Visit Provider Physician Assistant
DX: M54.12 Radiculopathy, cervical region (principal); R60.0 Localized edema; R10.12 Left upper quadrant pain; F17.200 Nicotine dependence, unspecified, uncomplicated

== ENCOUNTER → 2025-02-08 09:28 | Outpatient (BNVA) | payer OTHER, SELFPAY | PROVIDERS: PCP Physician Assistant; Visit Provider Physician Assistant | DX: M54.12 Radiculopathy, cervical region (principal); H53.8 Other visual disturbances; I10 Essential (primary) hypertension; R60.0 Localized edema; R10.12 Left upper quadrant pain; J41.0 Simple chronic bronchitis; F17.210 Nicotine dependence, cigarettes, uncomplicated | CPT/HCPCS: 96127; 99212 ==

== ENCOUNTER 2025-02-09 11:10 | Outpatient (REF) | payer OTHER, SELFPAY ==
--- NOTE | ~2025-02-09 | XR_ITS ---
EXAMINATION: XR CERVICAL SPINE CLINICAL INFORMATION: M54.12 - Radiculopathy, cervical region COMPARISON: 02/07/2022. TECHNIQUE: 6 views of the cervical spine, inclusive of bilateral oblique views, were obtained. FINDINGS: Straightened lordosis. No scoliosis. No subluxations. No fracture, compression deformity, or suspicious bone lesion. C1-2 articulation and craniocervical junction are intact and aligned. Fusion of C4-C6 with anterior plate and screws, and posterior spinous process cerclage wire at C4-5. There is bony fusion through the disc spaces. Hardware is intact and well seated. Normal facet alignment. Mild multilevel degenerative facet change. Nonoperative disc levels demonstrate moderate to severe degenerative C3-4, and C6-7. C7-T1 is somewhat obscured. Oblique views demonstrate mild bony neural foraminal narrowing bilaterally at C3-4 and C4-5. No high-grade narrowing. The pre and paravertebral soft tissues are normal. The lung apices are clear. XR/XR cervical spine 4V IMPRESSION: 1. No acute bony abnormalities. 2. Intact fusion of C4-C6. No complications. 3. Moderate to severe degenerative disc changes C3-4 and C6-7. 4. Mild multilevel facet degeneration. Electronically signed by: Darryl Cardenas MD 02/10/2025 09:34 AM EDT
--- NOTE | ~2025-02-09 | XR_ITS ---
EXAMINATION: XR CHEST 2 VIEWS HISTORY: F17.200 - Nicotine dependence, unspecified, uncomplicated COMPARISON: There are no prior studies for comparison. FINDINGS: PA and lateral views of the chest are submitted. There is linear subsegmental atelectasis versus scarring in the lingula. The lungs are otherwise clear. Slight blunting of the costophrenic angles may represent pleural thickening or tiny bilateral pleural effusions. There is no pleural effusion, pneumothorax, or pulmonary vascular congestion. The heart is normal in size. There is degenerative disc disease of the spine. Portion of the fusion plate is seen in the lower cervical spine. XR/XR chest 2V IMPRESSION: Lingular subsegmental atelectasis versus scarring. Bilateral pleural thickening versus tiny pleural effusions. Electronically signed by: Juwan Kaplan MD 02/10/2025 08:11 AM EDT
[2025-02-09 13:38] LABS: Hematocrit 40.6 % (37.0-47.0); Hemoglobin 14.6 g/dl (12.0-16.0); Mean Corpuscular Hemoglobin 30.4 pg (27.0-33.0); Mean Corpuscular Volume 84.6 fL (80.0-98.0); Platelet Count 187 X10*3/uL (160-400); Red Cell Distribution Width 12.2 % (11.0-16.0)
[2025-02-09 14:39] LABS: Alanine Aminotransferase 28 U/L (0-31); Albumin Level 4.2 g/dL (3.5-5.0); Alkaline Phosphatase 73 U/L (39-117); Anion Gap 12 (12-20); Aspartate Amino Transferase 27 U/L (5-31); Bilirubin Total 0.6 mg/dL (0.0-1.0); Blood Urea Nitrogen 11 mg/dL (9-16); Calcium 9.2 mg/dL (8.4-10.2); Carbon Dioxide 26 mmol/L (22-29); Chloride 95 mmol/L (96-108); Estimated Glomerular Filt Rate > 60; Glucose Fasting 82 mg/dL (60-99); Potassium 5.1 mmol/L (3.3-5.1); Sodium 128 mmol/L (135-145); Total Protein 7.2 g/dL (6.5-8.0)
[2025-02-10 09:22] LABS: Syphilis Screen Nonreactive (Nonreactive)
[2025-02-10 09:56] LABS: HIV AB/AG Nonreactive (Nonreactive); HIV Num 1 0.06 S/CO (0.00-0.99)
== END 2025-02-09 11:11 | disposition home or self-care (01) ==
LOC: HO.10HDL 11:10
PROVIDERS: PCP Physician Assistant; Visit Provider Physician Assistant
DX: Z13.1 Encounter for screening for diabetes mellitus (principal); M54.12 Radiculopathy, cervical region; F17.200 Nicotine dependence, unspecified, uncomplicated; Z20.2 Contact with and (suspected) exposure to infections with a predominantly sexual mode of transmission
CPT/HCPCS: 36415; 71046; 72050; 80053; 85027; 86780; 87389

== ENCOUNTER → 2025-02-09 11:31 | Outpatient (BNV) | payer OTHER, SELFPAY | PROVIDERS: PCP Physician Assistant; Visit Provider Radiology Diagnostic Radiology | DX: M50.30 Other cervical disc degeneration, unspecified cervical region (principal); J98.11 Atelectasis | CPT/HCPCS: 71046; 72050 ==

== ENCOUNTER 2025-03-03 13:14 | Outpatient (AMB) | payer OTHER, SELFPAY ==
--- NOTE | 2025-03-03 13:17 | A.OFFVIS_ITS ---
Vital Signs 03/03/25 13:21 Height 5 ft 5 in Weight 220 lb BMI 36.6 BP 158/76 H Blood Pressure Location Lt brachial Position Sitting Pulse 70 Pulse Source Pulse Oximeter Pulse Oximetry (%) 98 Oxygen Delivery Method Room Air Intake Visit Reasons: Cervical Radiculopathy FIONA 04/15/22 Intake Note: Pain today [employer] Insurance Required: No Accompanied by: Self / Same As Patient Allergies hydromorphone [Dilaudid] Allergy (Unknown, Verified 03/03/25 13:21) Vomiting morphine [MORPHINE] Allergy (Unknown, Verified 03/03/25 13:21) VOMITTING From OXYCONTIN Allergy (Unknown, Uncoded 02/08/25 10:38) VOMITTING Vicodin Allergy (Unknown, Uncoded 02/08/25 10:38) Vomiting HPI Comments Details: The patient is a 49-year-old female presenting with severe neck pain associated with radicular symptoms. She was last seen in our office for neck pain in 2021. Her medical history is significant for cervical fusion at C4-C6 performed in 2013 followed by wire insertion in 2014. Most recent imaging showe moderate to severe disc degeneration above and below the fusion and mild arthritis. After a fall incident in September where she tripped and hit her head, her neck pain and stiffness have worsened, particularly affecting the left side. She describes a gripping sensation in the neck with radiation into the collarbone, exacerbated by previous Soma use, which she discontinued. Her pain levels reportedly reach 8-9/10, leading to an increase in blood pressure. The patient continues to experience symptoms from small fiber neuropathy, including numbness and tingling in her extremities. Her anxiety is managed with clonazepam, but she denies additional medication or significant hypertension management. 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 Patient is not interested in interventional treatment or chronic opioid therapy, but reports interest to trial an increase in tizanidine dose as this has been partially effective. - Onset and Timing: Symptoms exacerbated following a fall in September. Chronic neck pain first addressed in 2013 with cervical fusion. - Quality and Character: Describes pain as severe, radiating, and similar to a feeling of a hook pulling in the neck. - Primary Location: Left side of the neck, involving the collarbone. - Areas of Radiation: Into the left shoulder and possibly other areas of the neck. - Exacerbating Factors: Activity, such as attempting daily tasks, potential previous use of Soma. - Alleviating Factors: Muscle relaxants, though current regimen is insufficient. - Interference: Pain impacts basic activities such as showering and braiding hair; associated with blood pressure increases. - Affect: Anxiety and psychological distress related to pain intensity. - Analgesia: Currently using tizanidine 4 mg three times daily. Considering increasing dose. - Adverse Effects: Concerns about tizanidine affecting blood pressure, previous issues with Soma. - Activities of Daily Living: Difficulty performing tasks such as showering, personal care. - Aberrant Drug Related Behaviors: No evidence of abuse but previous use of Soma noted for pain management. PRIOR 04/15/22: Patient is a pleasant 46 years old female who presents today for follow up for chronic neck pain with history of osteoarthrtis and ACDF C4-5, C5-6 in 2014. She was previously seen in this office by Dr. Tillman in 2019. Patient reports worsening of neck pain due to sleeping position in which she twisted her neck to her right while sleeping in prone position. Patient presented with limited cervical ROM in all planes with significant exacerbation of pain with extension. Reports occasional numbness and tingling in both of her hands. She was seen by PCP and cervical plain films were obtained in January and show postsurgical changes status post fusion C4-C6 with intact hardware. No destructive process or osteolysis. Anterior vertebral spurring C3-C4 and C6-C7. Patient states she titrated herself off Soma last year but had to restart it due to severe muscle spasms and tenderness in her cervical and lumbar regions. She currently is taking 350 mg BID and has been asking it this can be titrated to TID. She reports ineffectiveness with baclofen and tizanidine in the past. Patient reports she has done PT in the past and currently is unable to participate in PT due to pain. However, she reports she has been performing daily HEP to maintain cervical ROM and decrease neck stiffness. Patient has also been applying ice/heat therapy with peppermint moisturizes and taking daily Ibuprofen, with partial relief. She denies any fever, chills, malaise, weight loss, chest pain, dyspnea, headaches, bladder/bowel dysfunction or saddle anesthesia. She reports intermittent weakness of her upper extremities. Patient reports she sees psychologist every 2 months for mood disorder. 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 Patient is not interested in interventional treatment options for her cervical arthritic pain at this time. She is interested in TENS unit and was able to read information of [facility] without difficulty as well follow and maintaining direct eye contact during today's encounter. PRIOR 10/05/2020 Dr. Tillman: Juanita presents today for the telephone follow-up . she was under care in this office for long period of time received several sacroiliac joint injections which were more less helpful for her pain. However the injection which was performed on 08/15/2020 was not helpful for her pain. Today she started to describe her pain she actually used common language term to describe her vagina and she said that the pain is between the legs and vagina. This is not sacroiliac joint discomfort. Due to communication difficulties with this patient - she is partially deaf and sometimes fails to were his hearing aid - th is was not discovered on the previous visit. She went for CT scan of her pelvis and her sacroiliac joints are completely normal on the CT scan. Therefore it is not the pain generator. I am not sure on which indications she was receiving sacroiliac joints prior to me but obviously now sacroiliac joint injections are no further indicated for this patient. I will refer this patient to OBGYN to evaluate her pain. I also recommend her to take a careful look into activities of daily living what pain is being caused of what maneuvers. She is also scheduled to go for CT scan for evaluation of the bones of the pelvis. Prior: She has a history of lumbar fusion L3-4, L4-5, and L5-S1 in 2010. She also has had an ACDF C4-5, C5-6 in 2014. These were all done by Dr. Amato. She feels that both of thes e surgeries did help her original symptoms. She has continued pain however in her lower back and buttocks with radiation down the front of her legs R>L. She also reports burning and shooting pain that comes from her feet upwards. She is not a diabetic. She has not had an EMG/NCV. Juanita reports that no one is helping her . She was on Soma for many years and was taken off of this about a year ago. She reports her life has been a disaster since coming off of Soma. She would ideally like to go back onto it. She has instead been using Baclofen, which is somewhat helpful however she is almost out of medication. She apparently cannot take NSAIDs, Tylenol, Lyrica, or Gabapentin due to side effects. Report of this was vague. Juanita had a consult with Dr. Vega with no new findings that would require surgery. Her lumbar spine MRI revealed surgical changes s/p anterior fusion from L3-4 to L5-S1. No residual or recurrent disc herniation. Multilevel facet hypertrophy. Cervical MRI indicated ACDF C4-5, C5-6, with small right paracentral disc bulge at C6-7. No significant stenosis, disc herniations, no cord compression or signal changes. [facility] Medical History Polyneuropathy Smoker Chronic back pain [place] (hard of hearing) Asthma Depression PONV (postoperative nausea and vomiting) Metatarsus abductus Anxiety Usher syndrome Legally blind Hyponatremia Vaginal pain Cervical (neck) region somatic dysfunction Osteoarthritis of right knee Postlaminectomy syndrome Surgical History S/P tooth extraction Hx of colonoscopy History of back surgery History of fusion of cervical spine History of lumbar fusion History of hysterectomy Family History Father CAD (coronary artery disease) COPD (chronic obstructive pulmonary disease) Social History Housing: Apartment Alcohol intake: current Alcohol intake frequency: holidays/special occasions only Patient Tobacco Use Status: Current everyday Tobacco user Tobacco use type: Cigarette Cigarette Packs Per Day: 1.5 Cigarettes Per Day: 30 Years Smoked: 34 e-Cigarette/Vaping Use: Currently Using service: No Current occupational status: disabled Current occupational exposures/hazards: No Sexual orientation: Straight/Heterosexual Gender identity: Female Cognitive needs: Yes (cane) Hearing needs: No Vision needs: Yes Review of Systems Const Details: - Musculoskeletal: Reports neck pain, stiffness. - Neurological: Reports radicular symptoms, numbness, tingling in hands and feet. - Psychiatric: Reports anxiety. - Cardiovascular: Reports fluctuations in blood pressure associated with pain. - Sensory (ophthalmologic and auditory): Reports visual impairments and balance issues (Usher syndrome). All systems reviewed & are unremarkable except as noted in HPI and below Physical Exam General: Appears afebrile. Alert and oriented. Mood and affect appropriate. Follows and participates in conversation appropriately. Respiratory effort is unlabored. No cough. Able to transition from sit to stand unassisted. Uses cane with walking. Ambulates with bilaterally normal heel strike and toe off. Neck Other: Patient with decreased cervical ROM in all planes, especially with bilateral lateral rotation, left worse than right. Reports increased pain with cervical extension. Pain is unchanged by Spurling maneuver with retraction. Elvey's tension test is positive on the right, with pain radiation to elbow and right hand with reports of numbness and tingling in both hands. Lhermitte's test was negative. DTR intact, +1 and symmetrical. Patient demonstrated 5/5 motor strength of bilateral upper extremities. 2 + radial pulses. Mild tightness and TTP throughtout bilateral upper trapezius and rhomboid muscles. Mild paravertebral tenderness over facet joints. Neck: Yes normal visual inspection, Yes no lymphadenopathy, Yes no meningeal signs, Yes supple, No anterior neck swelling, Yes no JVD, No prominent supraclavicular fat pad and Yes prominent dorsocervical fat pad Thyroid: Thyroid normal Back/Spine/Pelvis Cervical Spine: No Lhermitte's sign positive, loss of normal cervical lordosis, cervical muscular tenderness, pain with cervical ROM, Cervical spine scars present, cervical spasm and No Cervical spine tenderness Thoracic/Lumbar Spine: thoracic and lumbar spine normal to inspection, Lasegue's sign negative, straight leg raise negative bilaterally, No thoracic spinal tenderness and No lumbar spinal tenderness Neuro General: no meningeal signs Results Reviewed Results Reviewed: XR CERVICAL SPINE 02/07/22 FINDINGS: There has been prior surgical fusion with anterior compression plate and screws C4-C6, interbody bone grafts, and wire posterior elements at C4 and C5. Portion of the posterior spinous processes at C4 and C5 have been resected. The hardware is intact. There is no destructive process or osteolysis. No prevertebral soft tissue swelling. The vertebral bodies are normal in height. There is no cervical vertebral compression, spondylolisthesis, or perched facet. Normal cervical lordosis. There is mild dextrocurvature lower cervical spine. Anterior vertebral body spurring present at C3-C4 and C6-C7. The odontoid appears intact. There is some nuchal ligament ossification lower cervical region. IMPRESSION: -Postsurgical changes status post fusion C4-C6. -Hardware intact. No destructive process or osteolysis. -Anterior vertebral spurring C3-C4 and C6-C7. XR CERVICAL SPINE 02/09/25 CLINICAL INFORMATION: M54.12 - Radiculopathy, cervical region COMPARISON: 02/07/2022. FINDINGS: Straightened lordosis. No scoliosis. No subluxations. No fracture, compression deformity, or suspicious bone lesion. C1-2 articulation and craniocervical junction are intact and aligned. Fusion of C4-C6 with anterior plate and screws, and posterior spinous process cerclage wire at C4-5. There is bony fusion through the disc spaces. Hardware is intact and well seated. Normal facet alignment. Mild multilevel degenerative facet change. Nonoperative disc levels demonstrate moderate to severe degenerative C3-4, and C6-7. C7-T1 is somewhat obscured. Oblique views demonstrate mild bony neural foraminal narrowing bilaterally at C3-4 and C4-5. No high-grade narrowing. The pre and paravertebral soft tissues are normal. The lung apices are clear. IMPRESSION: 1. No acute bony abnormalities. 2. Intact fusion of C4-C6. No complications. 3. Moderate to severe degenerative disc changes C3-4 and C6-7. 4. Mild multilevel facet degeneration. Assessment & Plan Assessment & Plan (1) Postlaminectomy syndrome: Code(s): M96.1 - Postlaminectomy syndrome, not elsewhere classified Category: Medical (2) Decreased range of motion of intervertebral discs of cervical spine: Code(s): M53.82 - Other specified dorsopathies, cervical region Category: Medical (3) Cervical spondylosis: Code(s): M47.812 - Spondylosis without myelopathy or radiculopathy, cervical region Category: Medical (4) Muscle spasm: Code(s): M62.838 - Other muscle spasm Category: Medical (5) Radiculopathy of cervical spine: Code(s): M54.12 - Radiculopathy, cervical region Category: Medical Plan Cervical spine MRI to assess for neural integrity and compression and follow up on previous xray findings. I plan to adjust the patient's muscle relaxant regimen to include up to 6 mg of tizanidine three times a day as needed, carefully monitoring for blood pressure changes. Patient requests tizanidine in tablet form, not in capsules. Current anxiety management with clonazepam will continue per her current Psychologist, with a reminder to stagger dosing to mitigate hypotension risks. Script provided for BP monitor kit. All questions and concerns have been answered and patient agreed with the plan. Follow up for MRI results/medication review and sooner as needed. Patient was informed and verbally consented to the use of an ambient scribe for clinic note documentation during this visit. Orders: Orders MR cervical spine wo con Today M47.812 - Spondylosis without myelopathy or radiculopathy, cervical region, M53.82 - Other specified dorsopathies, cervical region, M54.12 - Radiculopathy, cervical region, M96.1 - Postlaminectomy syndrome, not elsewhere classified Medications: New tizanidine 2 mg PO TID PRN 90 tabs 0RF muscle spasticity M47.812 - Spondylosis without myelopathy or radiculopathy, cervical region, M53.82 - Other specified dorsopathies, cervical region, M96.1 - Postlaminectomy syndrome, not elsewhere classified blood pressure test kit-large ([employer] Blood Pressure Monitor kit) As directed 1 ea 0RF hypertension R03.0 - Elevated blood-pressure reading, without diagnosis of hypertension Changed From tizanidine 4 mg PO TID 30 days 90 tabs 3RF muscle spasticity M47.812 - Spondylosis without myelopathy or radiculopathy, cervical region, M53.82 - Other specified dorsopathies, cervical region, M62.838 - Other muscle spasm, M96.1 - Postlaminectomy syndrome, not elsewhere classified To tizanidine 4 mg PO TID 30 days PRN 90 tabs 3RF muscle spasticity M47.812 - Spondylosis without myelopathy or radiculopathy, cervical region, M53.82 - Other specified dorsopathies, cervical region, M62.838 - Other muscle spasm, M96.1 - Postlaminectomy syndrome, not elsewhere classified Discontinued carisoprodol (Soma) Takes 1.5 in the AM and 1 tabs in PM Discontinued Reason: Doctor's Order 350 mg PO BID 30 days 75 tabs 3RF M99.01 - Segmental and somatic dysfunction of cervical region Patient Instructions: I discussed with the patient the current diagnosis of cervical spondylosis with radiculopathy and moderate disc degeneration as noted on x-ray. The treatment options include adjusting the tizanidine dosage to 6 mg three times daily, using a combination of 4 mg and 2 mg tablets. I emphasized monitoring her blood pressure due to the hypotensive effect of tizanidine. An MRI is recommended to further evaluate disc degeneration and cervical radiculopathy upon her return from travel. The patient declined injectable interventions based on previous case observations. Patient understanding and consent for the current treatment plan and agreements were confirmed. - Take tizanidine as prescribed for muscle relaxation. - Monitor blood pressure regularly, especially after medication doses. - Avoid taking tizanidine and clonazepam simultaneously. - Schedule an MRI for after returning from [place] for further evaluation of neck pain. - Follow up after MRI to assess treatment effectiveness and plan further. Coding Level of Care Code Est Pt Level 4 (55056) Complex EM visit Add On G2211 Diagnoses Postlaminectomy syndrome M96.1 Decreased range of motion of intervertebral discs of cervical spine M53.82 Cervical spondylosis M47.812 Muscle spasm M62.838 Radiculopathy of cervical spine M54.12
[2025-03-03 13:21] VITALS: BP 158/76; PULSE 70; O2SAT 98; BMI 36.6
== END 2025-03-03 13:48 | disposition home or self-care (01) ==
LOC: HO.PMC 13:14
PROVIDERS: PCP Physician Assistant; Referring Provider Physician Assistant; Visit Provider Nurse Practitioner Family
DX: M96.1 Postlaminectomy syndrome, not elsewhere classified (principal); M53.82 Other specified dorsopathies, cervical region; M47.812 Spondylosis without myelopathy or radiculopathy, cervical region; M62.838 Other muscle spasm; M54.12 Radiculopathy, cervical region
CPT/HCPCS: 99214; G2211

== ENCOUNTER → 2025-03-03 13:14 | Outpatient (BNVA) | payer OTHER, SELFPAY | PROVIDERS: PCP Physician Assistant; Referring Provider Physician Assistant; Visit Provider Nurse Practitioner Family | DX: M96.1 Postlaminectomy syndrome, not elsewhere classified (principal); M53.82 Other specified dorsopathies, cervical region; M47.22 Other spondylosis with radiculopathy, cervical region; M62.838 Other muscle spasm | CPT/HCPCS: 99212 ==

== ENCOUNTER 2025-03-08 10:08 | Outpatient (REF) | payer OTHER, SELFPAY ==
--- NOTE | ~2025-03-08 | US_ITS ---
CLINICAL HISTORY: R10.12 - Left upper quadrant pain --- Additional Notes or Special Instructions: r o splenomegaly US abdomen complete Comparison: None Findings: The visualized pancreas is normal. The aorta and inferior vena cava are normal caliber. The liver is enlarged, measuring 18 cm without focal mass. There is no intrahepatic bile duct dilatation. The common duct is 3 mm in diameter. The gallbladder is normal. There is no sonographic Munoz sign. The main portal vein is antegrade. Kidneys are not well visualized. The right kidney is 11.2 cm in length. The left kidney is 10.7 cm in length. The spleen is normal, Measuring 10 cm without focal mass. No ascites. IMPRESSION: 1. Normal complete abdominal ultrasound. This document has been electronically signed by: Deborah Bolden MD on 03/08/2025 15:48:20
--- OUTSIDE RECORDS SUMMARY | 2025-03-08 11:07 | XMS_ITS | Encounter Summary ---
Author Organization [facility] Address [address] [place] [address] Care Team Providers Care Drill Press Tender Name Role Phone Rhonda Perales DO Primary Care Pro vider Unavailable Reason for Visit * Reason Comments Encounter Details Date Type Department Care Team Description 09/13/2016 Telephone Adult Medicine [address] [id number] Lawanda Germain PA-C Social History Tobacco Use Types Packs/Day Years Used Date Smoking Tobacco: Every Day Cigarettes 1 21 Smokeless Tobacco: Never Alcohol Use Standard Drinks/Week Comments Yes 1.7 (1 standard drink = 0.6 oz p ure alcohol) 6 drinks per yr at most Sex Assigned at Date Recorded Not on file documented as of this encounter Miscellaneous Notes * Telephone Encounter - Judy Luciano C.M.A. - 09/13/2016 2:45 PM EST Message copied by Fam LUCIANO MICHELLE on FriSep 13, 2016 2:45 PM ------ Message from: LAWANDA GERMAIN Created: FriSep 13, 2016 12:54 PM Patient's labs all look stable and normal. She has no evidence thyroid dysfunction. Which he like to try a prescription antiperspirant for the excessive sweating as discussed in the office? Telephone Information: Mobile Not on file. ------ documented in this encounter Plan of Treatment Not on file documented as of this encounter Visit Diagnoses Not on filedocumented in this encounter Care Teams Drill Press Tender Relationship Specialty Start Date End Date Rhonda Perales DO PCP - General Internal Medicine 05/05/15 documented as of this encounter
--- OUTSIDE RECORDS SUMMARY | 2025-03-08 11:07 | XMS_ITS | Encounter Summary ---
Author Organization [facility] Address [address] [place] [address] Care Team Providers Care Farm Machinery Engine Mechanic Name Role Phone Rhonda Perales DO Primary Care Pro vider Unavailable Reason for Referral * Non TRISH (Routine) - Authorized/Booked Specialty Diagnoses / Procedures Referred By Diana obregon Referred To Contact Nephrology Procedures REFERRAL TO NEPHROLOGY Lawanda Butler PA-C [address] [place] [id number] Yuval Chilel MD [address] [place] [phone] Referral ID Status Reason Start Date Expiration Date V isits Requested Visits Authorized [id number] Authorized/B ooked 09/13/2016 09/13/2017 1 1 Reason for Visit * Reason Onset Date Comments Abnormal Test Results 09/13/2016 Encounter Details Date Type Department Care Team Description 09/13/2016 Telephone Adult Medicine [address] [address] Rhonda Perales DO Abnormal Test Results Social History Tobacco Use Types Packs/Day Years Used Date Smoking Tobacco: Every Day Cigarettes 1 21 Smokeless Tobacco: Never Alcohol Use Standard Drinks/Week Comments Yes 1.7 (1 standard drink = 0.6 oz p ure alcohol) 6 drinks per yr at most Sex Assigned at Date Recorded Not on file documented as of this encounter Miscellaneous Notes * Telephone Encounter - Lawanda Butler PA-C - 09/13/2016 4:31 PM EST Most likely the low-sodium is related to Trileptal. I am happy to refer her to Dr. 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 * Telephone Encounter - Dixie Carter R.N. 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 - 09/13/2016 2:46 PM EST Patient has questions regarding a previous Brain MRI done in 2014. Please call patient at [phone] documented in this encounter Plan of Treatment Not on file documented as of this encounter Visit Diagnoses Not on filedocumented in this encounter Care Teams Farm Machinery Engine Mechanic Relationship Specialty Start Date End Date Rhonda Perales DO PCP - General Internal Medicine 05/05/15 documented as of this encounter
--- OUTSIDE RECORDS SUMMARY | 2025-03-08 11:07 | XMS_ITS | Encounter Summary ---
Author Organization [facility] Address [address] [place] [address] Care Team Providers Care Boat Joiner Name Role Phone Rhonda Perales DO Primary Care Pro vider Unavailable Encounter Details Date Type Department Care Team Description 02/19/2017 Corporate Representative Report Medical Records [address] [place] [id number] Cayetano Newton MD Social History Tobacco Use Types Packs/Day Years Used Date Smoking Tobacco: Every Day Cigarettes 1 21 Smokeless Tobacco: Never Alcohol Use Standard Drinks/Week Comments Yes 1.7 (1 standard drink = 0.6 oz p ure alcohol) 6 drinks per yr at most Sex Assigned at Date Recorded Not on file documented as of this encounter Plan of Treatment Not on file documented as of this encounter Visit Diagnoses Not on filedocumented in this encounter Care Teams Boat Joiner Relationship Specialty Start Date End Date Rhonda Perales DO PCP - General Internal Medicine 05/05/15 documented as of this encounter
--- OUTSIDE RECORDS SUMMARY | 2025-03-08 11:08 | XMS_ITS | Encounter Summary ---
Author Organization [facility] Address [address] [place] [address] Care Team Providers Care Urinalysis Technician Name Role Phone Rhonda Perales DO Primary Care Pro vider Unavailable Encounter Details Date Type Department Care Team Description 07/21/2019 [facility] Medical Records [address] [place] [id number] Abstract, Provider Social History Tobacco Use Types Packs/Day Years Used Date Smoking Tobacco: Every Day Cigarettes 1 21 Smokeless Tobacco: Never Comments:trying to cut down- not willing to quit at this point Alcohol Use Standard Drinks/Week Comments Yes 1.7 (1 standard drink = 0.6 oz p ure alcohol) occasional Sex Assigned at Date Recorded Not on file documented as of this encounter Plan of Treatment Not on file documented as of this encounter Visit Diagnoses Not on filedocumented in this encounter Care Teams Urinalysis Technician Relationship Specialty Start Date End Date Rhonda Perales DO PCP - General Internal Medicine 05/05/15 documented as of this encounter
--- OUTSIDE RECORDS SUMMARY | 2025-03-08 11:08 | XMS_ITS | Encounter Summary ---
Author Organization [facility] Address [address] [place] [address] Care Team Providers Care Classification Inspector Name Role Phone Rhonda Perales DO Primary Care Pro vider Unavailable Reason for Visit * Reason Onset Date Comments TEST RESULTS 05/17/2019 Encounter Details Date Type Department Care Team Description 05/17/2019 Telephone Adult Medicine [address] [id number] Rhonda Perales DO TEST RESULTS Social History Tobacco Use Types Packs/Day Years Used Date Smoking Tobacco: Every Day Cigarettes 2 21 Smokeless Tobacco: Never Alcohol Use Standard Drinks/Week Comments Yes 1.7 (1 standard drink = 0.6 oz p ure alcohol) 6 drinks per yr at most Sex Assigned at Date Recorded Not on file documented as of this encounter Miscellaneous Notes * Telephone Encounter - Rhonda Mota DO - 05/19/2019 8:58 AM EDT Thank you, will wait for info from patient * Telephone Encounter - Dixie Carter R.N. - 05/19/2019 8:53 AM EDT Long discussion with pt, she will have testing done . Wants a referral to [facility] , the doctor has a name that starts with a K She will try to find the name in her records Since dr Amato hasretired * Telephone Encounter - Lashay Cotton - 05/19/2019 8:39 AM EDT Pt returning call needs to discuss why she is referred to [facility], and one of her results she doesn'tunderstand * Telephone Encounter - Dixie Carter R.N. - 05/19/2019 8:21 AM EDT Message left for pt and advised her to review my chart messages and call if she has any questions or concerns * Telephone Encounter - Rhonda Mota DO - 05/19/2019 6:03 AM EDT Results released in myMatrixx. Will refer patient as she chooses * Telephone Encounter - Christine Chairez M.A. - 05/18/2019 11:39 AM EDT Pt asking to speak to nurse regarding Xray results ordered by pcp * Telephone Encounter - Lashay Cotton - 05/18/2019 11:26 AM EDT Pt would like call back from nurse * Telephone Encounter - Ruth Fountain - 05/17/2019 10:24 AM EDT Inform patient: ANY URGENT OR ABNORMAL RESULTS WIILL RESULT IN A CALL BACK TO THE PATIENT BUBBA. Type of test: :xray Date test was performed: 05/14/19 [facility] the test performed[facility] Who ordered this test?: Dr Montejo Is the doctor here today?: YES Can the message wait until the doctor returns?: YES IF PATIENT'S PCP IS NOT IN INSTRUCT PATIENT THAT THEY WILL RECEIVE A CALL BACK WHEN THE PCP IS IN THE OFFICE NEXT. documented in this encounter Plan of Treatment Not on file documented as of this encounter Visit Diagnoses Not on filedocumented in this encounter Care Teams Classification Inspector Relationship Specialty Start Date End Date Rhonda Perales DO PCP - General Internal Medicine 05/05/15 documented as of this encounter
--- OUTSIDE RECORDS SUMMARY | 2025-03-08 11:08 | XMS_ITS | Encounter Summary ---
Author Organization [facility] Address [address] [place] [address] Care Team Providers Care Vmware Administrator Name Role Phone Rhonda Perales DO Primary Care Pro vider Unavailable Encounter Details Date Type Department Care Team Description 06/03/2019 Orders Only Medical Records [address] [place] [address] Alexandre Price MD Social History Tobacco Use Types Packs/Day [...] on file documented as of this encounter Procedures Procedure Name Priority Date/Time Associated Diagnosis Comments OUTSIDE VASCULAR STUDY Routine 06/01/2019 documented in this encounter Results * OUTSIDE VASCULAR STUDY (06/01/2019) Alexandre Price MD CARDIOLOGY documented in this encounter Visit Diagnoses Not on filedocumented in this encounter Care Teams Vmware Administrator Relationship Specialty Start Date End Date Rhonda Perales DO PCP - General Internal Medicine 05/05/15 documented as of this encounter
--- OUTSIDE RECORDS SUMMARY | 2025-03-08 11:08 | XMS_ITS | Encounter Summary ---
Author Organization [facility] Address [address] [place] [address] Care Team Providers Care Cyber Operator Name Role Phone Jose Erazo MD Primary Care Provider Noemi Meliton Sanchez MD Primary Care Provider Unavail able Shawn Aldridge MD Primary Care Provider [phone] Rhonda Perales DO Primary Care Pro vider Unavailable Reason for Visit * Reason Onset Date Comments Call-returning From Provider 04/06/2013 Encounter Details Date Type Department Care Team Description 04/06/2013 Telephone Adult Medicine [address] [address] Jose Erazo MD Call-returning From Provider Social History Tobacco Use Types Packs/Day Years Used Date Smoking Tobacco: Every Day Cigarettes 1 21 Smokeless Tobacco: Never Alcohol Use Standard Drinks/Week Comments Yes 1.7 (1 standard drink = 0.6 oz p ure alcohol) 6 drinks per yr at most Sex Assigned at Date Recorded Not on file documented as of this encounter Miscellaneous Notes * Telephone Encounter - Cecilia Riojas - 04/06/2013 1:25 PM EDT Pt returning call. She says she just missed a call about 5 mins ago and she doesn't know who called. she deleted message before she could hear it documented in this encounter Plan of Treatment Not on file documented as of this encounter Visit Diagnoses Not on filedocumented in this encounter Care Teams Cyber Operator Relationship Specialty Start Date End Date Jose Erazo MD PCP - General 06/30/09 10/26/14 Meliton Christiansen MD PCP - General Internal Medicine 11/07/14 04/11/15 Shawn Aldridge MD [address] [place] [address] PCP - General Internal Medicine 04/12/15 05/04/15 Rhonda Perales DO [address] [place] [address] PCP - General Internal Medicine 05/05/15 documented as of this encounter
--- OUTSIDE RECORDS SUMMARY | 2025-03-08 11:08 | XMS_ITS | Encounter Summary ---
Author Organization [facility] Address [address] [place] [address] Care Team Providers Care Instrumental Teacher Name Role Phone Rhonda Perales DO Primary Care Pro vider Unavailable Encounter Details Date Type Department Care Team Description 07/22/2019 Orders Only Adult Medicine [address] [address] Rhonda Perales DO Social History Tobacco Use Types Packs/Day Years [...] on filedocumented in this encounter Care Teams Instrumental Teacher Relationship Specialty Start Date End Date Rhonda Perales DO PCP - General Internal Medicine 05/05/15 documented as of this encounter
--- OUTSIDE RECORDS SUMMARY | 2025-03-08 11:08 | XMS_ITS | Encounter Summary ---
Author Organization [facility] Address [address] [place] [address] Care Team Providers Care Water Meter Reader Name Role Phone Jose Erazo MD Primary Care Provider Noemi vailable Meliton Christiansen MD Primary Care Provider Unavail able Shawn Aldridge MD Primary Care Provider [phone] Rhonda Perales DO Primary Care Pro vider Unavailable Encounter Details Date Type Department Care Team Description 01/22/2012 Lamp Stack Developer Report Medical Records [address] [place] [address] Social History Tobacco Use Types Packs/Day Years Used Date Smoking Tobacco: Every Day Cigarettes 0.3 21 Smokeless Tobacco: Never Alcohol Use Standard Drinks/Week Comments Yes 1.7 (1 standard drink = 0.6 oz p ure alcohol) Sex Assigned at Date Recorded Not on file documented as of this encounter Plan of Treatment Not on file documented as of this encounter Visit Diagnoses Not on filedocumented in this encounter Care Teams Water Meter Reader Relationship Specialty Start Date End Date Jose Erazo MD PCP - General 06/30/09 10/26/14 Meliton Christiansen MD PCP - General Internal Medicine 11/07/14 04/11/15 Shawn Aldridge MD [address] [place], [place] [id number] PCP - General Internal Medicine 04/12/15 05/04/15 Rhonda Perales DO [address] [place] [address] PCP - General Internal Medicine 05/05/15 documented as of this encounter
--- OUTSIDE RECORDS SUMMARY | 2025-03-08 11:08 | XMS_ITS | Encounter Summary ---
Author Organization [facility] Address [address] [place] [address] Care Team Providers Care Biotech Production Specialist Name Role Phone Rhonda Perales DO Primary Care Pro vider Unavailable Reason for Visit * Reason Onset Date Comments Testing 05/06/2019 Bilateral Venous Ultrasound Encounter Details Date Type Department Care Team Description 05/06/2019 Telephone Adult Medicine - [address] [address] Rhonda Perales DO Testing (Bilateral Venous Ultrasound) Social History Tobacco Use Types Packs/Day Years Used Date Smoking Tobacco: Every Day Cigarettes 2 21 Smokeless Tobacco: Never Alcohol Use Standard Drinks/Week Comments Yes 1.7 (1 standard drink = 0.6 oz p ure alcohol) 6 drinks per yr at most Sex Assigned at Date Recorded Not on file documented as of this encounter Miscellaneous Notes * Telephone Encounter - Nieves Knox - 05/06/2019 1:57 PM EDT Bilateral Venous Ultrasound [facility] No auth required Order forwarded to [facility] for booking documented in this encounter Plan of Treatment Not on file documented as of this encounter Visit Diagnoses Not on filedocumented in this encounter Care Teams Biotech Production Specialist Relationship Specialty Start Date End Date Rhonda Perales DO PCP - General Internal Medicine 05/05/15 documented as of this encounter
--- OUTSIDE RECORDS SUMMARY | 2025-03-08 11:08 | XMS_ITS | Encounter Summary ---
Author Organization [facility] Address [address] [place] [address] Care Team Providers Care Ironer Machine Name Role Phone Rhonda Perales DO Primary Care Pro vider Unavailable Encounter Details Date Type Department Care Team Description 08/12/2019 Orders Only Medical Records [address] [place] [address] Rhonda Perales DO Social History Tobacco Use [...] Name Priority Date/Time Associated Diagnosis Comments OUTSIDE ECHO Routine 08/06/2019 documented in this encounter Results * OUTSIDE ECHO (08/06/2019) Rhonda Mota DO CARDIOLOG Y documented in this encounter Visit Diagnoses Not on filedocumented in this encounter Care Teams Ironer Machine Relationship Specialty Start Date End Date Rhonda Perales DO PCP - General Internal Medicine 05/05/15 documented as of this encounter
--- OUTSIDE RECORDS SUMMARY | 2025-03-08 11:08 | XMS_ITS | Encounter Summary ---
Author Organization [facility] Address [address] [place] [address] Care Team Providers Care 3D Designer Name Role Phone Rhonda Perales DO Primary Care Pro vider Unavailable Encounter Details Date Type Department Care Team Description 04/17/2020 Information Lead Report Medical Records [address] [place] [id number] [place] [address] Social History Tobacco Use Types Packs/Day Years [...] on filedocumented in this encounter Care Teams 3D Designer Relationship Specialty Start Date End Date Rhonda Perales DO PCP - General Internal Medicine 05/05/15 documented as of this encounter
--- OUTSIDE RECORDS SUMMARY | 2025-03-08 11:08 | XMS_ITS | Encounter Summary ---
Author Organization [facility] Address [address] [place] [address] Care Team Providers Care Maintenance Painter Name Role Phone Rhonda Perales DO Primary Care Pro vider Unavailable Encounter Details Date Type Department Care Team Description 11/29/2019 Cna Hha Report Medical Records [address] [place] [phone] [place] [address] Social History Tobacco Use Types Packs/Day Years [...] on filedocumented in this encounter Care Teams Maintenance Painter Relationship Specialty Start Date End Date Rhonda Perales DO PCP - General Internal Medicine 05/05/15 documented as of this encounter
--- OUTSIDE RECORDS SUMMARY | 2025-03-08 11:08 | XMS_ITS | Encounter Summary ---
Author Organization [facility] Address [address] [place] [address] Care Team Providers Care Career Services Manager Name Role Phone Jose Erazo MD Primary Care Provider Noemi vailaMeliton Ramirez MD Primary Care Provider Unavail able Shawn Aldridge MD Primary Care Provider [phone] Rhonda Perales DO Primary Care Pro vider Unavailable Encounter Details Date Type Department Care Team Description 09/28/2010 Hospital Medical Records [address] [place] [address] Mikel Amato MD Social History Tobacco Use Types Packs/Day [...] on filedocumented in this encounter Care Teams Career Services Manager Relationship Specialty Start Date End Date Jose Erazo MD PCP - General 06/30/09 10/26/14 Meliton Christiansen MD PCP - General Internal Medicine 11/07/14 04/11/15 Shawn Aldridge MD [address] [place] [address] PCP - General Internal Medicine 04/12/15 05/04/15 Rhonda Perales DO [address] [place] [address] PCP - General Internal Medicine 05/05/15 documented as of this encounter
--- OUTSIDE RECORDS SUMMARY | 2025-03-08 11:08 | XMS_ITS | Encounter Summary ---
Author Organization [facility] Address [address] [place] [address] Care Team Providers Care Fabrics And Material Cutter Name Role Phone Jose Erazo MD Primary Care Provider Noemi vailable Meliton Christiansen MD Primary Care Provider Unavail able Shawn Aldridge MD Primary Care Provider [phone] Rhonda Perales DO Primary Care Pro vider Unavailable Encounter Details Date Type Department Care Team Description 03/02/2014 Business Doc Medical Records [address] [place] [address] Abstract, Provider Social History Tobacco Use Types [...] on filedocumented in this encounter Care Teams Fabrics And Material Cutter Relationship Specialty Start Date End Date Jose Erazo MD PCP - General 06/30/09 10/26/14 Meliton Christiansen MD PCP - General Internal Medicine 11/07/14 04/11/15 Shawn Aldridge MD [address] [place], [place] [phone] PCP - General Internal Medicine 04/12/15 05/04/15 Rhonda Perales DO [address] [place] [address] PCP - General Internal Medicine 05/05/15 documented as of this encounter
--- OUTSIDE RECORDS SUMMARY | 2025-03-08 11:08 | XMS_ITS | Encounter Summary ---
Author Organization [facility] Address [address] [place] [address] Care Team Providers Care Embedded Nurse Name Role Phone Rhonda Perales DO Primary Care Pro vider Unavailable Encounter Details Date Type Department Care Team Description 10/03/2017 Shaker Plate Operator Report Medical Records [address] [place] [address] Mikel Amato MD Social History Tobacco Use [...] on filedocumented in this encounter Care Teams Embedded Nurse Relationship Specialty Start Date End Date Rhonda Perales DO PCP - General Internal Medicine 05/05/15 documented as of this encounter
--- OUTSIDE RECORDS SUMMARY | 2025-03-08 11:08 | XMS_ITS | Encounter Summary ---
Author Organization [facility] Address [address] [place] [address] Care Team Providers Care Screw Machine Hand Name Role Phone Rhonda Perales DO Primary Care Pro vider Unavailable Reason for Visit * Reason Onset Date Comments fall07/19/2019 Encounter Details Date Type Department Care Team Description 07/19/2019 Telephone Adult Medicine [address] [address] Rhonda Perales DO Fall Social History Tobacco Use Types Packs/Day Years [...] encounter Miscellaneous Notes * Telephone Encounter - Dixie Carter R.N. - 07/29/2019 9:50 AM EDT Pt is very upset that dr Rhonda Canales has stated that she has no related symptoms , ( she feels she has severe changes on this as she read it on my chart ) she is seeing neurosurgery tomorrow * Telephone Encounter - Lashay Cotton - 07/29/2019 9:17 AM EDT Pt returned call she can be reached at [phone] * Telephone Encounter - Dixie Carter R.N. - 07/29/2019 8:30 AM EDT I left a message for the patient to return my call. * Telephone Encounter - Dixie Carter R.N. - 07/28/2019 2:59 PM EDT I left a message for the patient to return my call. * Telephone Encounter - Rhonda Mota DO - 07/28/2019 1:40 PM EDT Mri resulted. Symptoms unrelated . Needs to fu w/ physiatry for low back sympotms * Telephone Encounter - Ruth Steward L.P.N. - 07/27/2019 4:49 PM EDT MRI has been read, please review * Telephone Encounter - Yessi Davey R.N. - 07/27/2019 1:06 PM EDT MRI is still in process. * Telephone Encounter - Mg Goodwin R.N - 07/26/2019 4:23 PM EDT Mris still in process * Telephone Encounter - Dixie Carter R.N. - 07/23/2019 10:41 AM EDT MRI has not been read, will call pt after noon * Telephone Encounter - Brenda Asif M.A. - 07/23/2019 10:37 AM EDT Pt requesting MRI results from 07-20-19 which are still pending, she had a fall this morning down the stairs and c/o low back locking up prior to the fall. Also states yesterday her legs alos lockedup in position and her son had to help her up. I informed her I would have triage call her back for more details to send to to address. Please triage, pt requests call on or [id number] p.m. Telephone Information: * Telephone Encounter - Brenda Asif M.A. - 07/23/2019 10:29 AM EDT Pt advised of RX for Nicoderm patch and instructions, pt verbalized understanding. * Telephone Encounter - Swapna Elmore - 07/23/2019 10:13 AM EDT Patient returning phone call would like a call BUBBA. Very anxious about it. [phone] * Telephone Encounter - Faina Sarmiento M.A. - 07/23/2019 10:08 AM EDT Left message for pt to returned my call. [phone] * Telephone Encounter - Rhonda Mota DO - 07/23/2019 12:00 AM EDT Have ordered NicoDerm patch. Discussed with patient at visit. She has used this before and tolerated well. Knows that she cannot smoke while wearing the patch and that it needs to be taken off at least 30 minutes prior to smoking. * Telephone Encounter - Faina Sarmiento M.A. - 07/19/2019 9:38 AM EDT Please read message below and advise * Telephone Encounter - Domenica Hutchison - 07/19/2019 9:19 AM EDT Caller requesting call back from provider: Is the caller the patient? YES If caller is not the patient, what is the callers name? N/A Callers relationship to patient? N/A If person calling is not the patient themselves, is there a verbal release in FYI or permanent comments for this person: NO Reason for call back: Patient is requesting nicotine patch to try to quit smoking/ Has discussed with Dr at last visit. Caller offered to speak with the nurse for assistance: YES Response: Patient offered to speak with nurse for assistance and patient agreed. Message forwarded to nurse. documented in this encounter Plan of Treatment Not on file documented as of this encounter Visit Diagnoses Not on filedocumented in this encounter Care Teams Screw Machine Hand Relationship Specialty Start Date End Date Rhonda Perales DO PCP - General Internal Medicine 05/05/15 documented as of this encounter
--- OUTSIDE RECORDS SUMMARY | 2025-03-08 11:08 | XMS_ITS | Encounter Summary ---
Author Organization [facility] Address [address] [place] [address] Care Team Providers Care Finisher Accordion Name Role Phone Jose Erazo MD Primary Care Provider Noemi vailable Meliton Christiansen MD Primary Care Provider Unavail able Shawn Aldridge MD Primary Care Provider [phone] Rhonda Perales DO Primary Care Pro vider Unavailable Encounter Details Date Type Department Care Team Description 11/13/2011 Business Doc Medical Records [address] [place] [id number] Abstract, Provider Social History Tobacco Use Types [...] on filedocumented in this encounter Care Teams Finisher Accordion Relationship Specialty Start Date End Date Jose Erazo MD PCP - General 06/30/09 10/26/14 Meliton Christiansen MD PCP - General Internal Medicine 11/07/14 04/11/15 Shawn Aldridge MD [address] [place], [place] [phone] PCP - General Internal Medicine 04/12/15 05/04/15 Rhonda Perales DO [address] [place] [address] PCP - General Internal Medicine 05/05/15 documented as of this encounter
--- OUTSIDE RECORDS SUMMARY | 2025-03-08 11:08 | XMS_ITS | Encounter Summary ---
Author Organization [facility] Address [address] [place] [address] Care Team Providers Care Bearing Press Machine Operator Name Role Phone Jose Erazo MD Primary Care Provider Noemi Meliton Sanchez MD Primary Care Provider Unavail able Shawn Aldridge MD Primary Care Provider [phone] Rhonda Perales DO Primary Care Pro vider Unavailable Reason for Referral * Specialist (Routine) - Authorized/Booked Specialty Diagnoses / Procedures Referred By Diana obregon Referred To Contact Ophthalmology Procedures REFERRAL TO EYE SERVICES Jose Erazo MD [address] [place] [address] External Ophthalmology Referral ID Status Reason Start Date Expiration Date V isits Requested Visits Authorized SEE REVIEW 09/04/12 Authorized/ Booked 09/03/2012 12/04/2012 1 1 Reason for Visit * Reason Onset Date Comments Youth Probation Officer Feedback 09/03/2012 Opal Yarbrough Encounter Details Date Type Department Care Team Description 09/03/2012 Telephone Adult Medicine [address] [address] Jose Erazo MD Youth Probation Officer Feedback (Opal Yarbrough) Social History Tobacco Use Types Packs/Day Years Used Date Smoking Tobacco: Every Day Cigarettes 0.5 21 Smokeless Tobacco: Never Alcohol Use Standard Drinks/Week Comments Yes 1.7 (1 standard drink = 0.6 oz p ure alcohol) Sex Assigned at Date Recorded Not on file documented as of this encounter Miscellaneous Notes * Telephone Encounter - Jose Erazo MD - 09/03/2012 6:27 PM EST Ordered * Telephone Encounter - Radha Baeza - 09/03/2012 12:15 PM EST Please review this patients new referral request. The referral has been pended. Please complete thefollowing: If approved> sign order If denied>please give instructions and route to your practice nursing pool. Practice nurse should inform referrals and the patient if denied. * Telephone Encounter - Martha Gill - 09/03/2012 9:28 AM EST Please verify with the patient now that this is the current/active insurance: [place] Plan[place] Product Type: MEDICARE [id number] Effective 07/27/09: [employer] will not retro referral requests over 90 days. If request is for this please instruct patient to call the 800# on their insurance card to appeal. Do not submit a request. Referrals cannot be processed if the insurance is not accurate. If the insurance listed above in red is NO BILLING INFORMATION FOUND FOR THIS ENCOUTNER The patients correct insurance must be obtained and registered in [facility] or their referral can not be processed. Who is calling to request this referral? [email or web address] If the caller is not the patient, what is their name? N/A FIRST and LAST NAME of SPECIALIST PATIENT is seeing: Opal Yarbrough What specialty is this? Optholmology DIAGNOSIS Patient is being seen for (Not a body part or a procedure): routine eye exam Have you seen this SPECIALIST for this PROBLEM/DX before?YES If YES, when:2009 Have you checked REVIEW or the APPT DESK to see if this referral has already been done or has visits left? YES Who referred the patient to this specialty? patient Is this visit:Follow Up Address of Specialist: [address] [place] [address] Phone # of Specialist: [phone] Fax #: (if applicable): Does patient have an appointment scheduled?: NO Date of appointment- (including a retro-request): pending this referral Is this appointment related to: Not MVA, WC or Surgery related documented in this encounter Plan of Treatment Not on file documented as of this encounter Visit Diagnoses Not on filedocumented in this encounter Care Teams Bearing Press Machine Operator Relationship Specialty Start Date End Date Jose Erazo MD PCP - General 06/30/09 10/26/14 Meliton Christiansen MD PCP - General Internal Medicine 11/07/14 04/11/15 Shawn Aldridge MD [address] [place] [address] PCP - General Internal Medicine 04/12/15 05/04/15 Rhonda Perales DO [address] [place] [address] PCP - General Internal Medicine 05/05/15 documented as of this encounter
--- OUTSIDE RECORDS SUMMARY | 2025-03-08 11:08 | XMS_ITS | Encounter Summary ---
Author Organization [facility] Address [address] [place] [address] Care Team Providers Care Water Resources Engineer Name Role Phone Jose Erazo MD Primary Care Provider Noemi vailable Meliton Christiansen MD Primary Care Provider Unavail able Shawn Aldridge MD Primary Care Provider [phone] Rhonda Perales DO Primary Care Pro vider Unavailable Encounter Details Date Type Department Care Team Description 05/18/2010 Business Doc Medical Records [address] [place] [address] Abstract, Provider Social History Tobacco Use Types Packs/Day Years Used Date Smoking Tobacco: Every Day Cigarettes 0.5 21 Alcohol Use Standard Drinks/Week Comments No 0 (1 standard drink = 0.6 oz pur e alcohol) Sex Assigned at Date Recorded Not on file documented as of this encounter Plan of Treatment Not on file documented as of this encounter Visit Diagnoses Not on filedocumented in this encounter Care Teams Water Resources Engineer Relationship Specialty Start Date End Date Jose Erazo MD PCP - General 06/30/09 10/26/14 Meliton Christiansen MD PCP - General Internal Medicine 11/07/14 04/11/15 Shawn Aldridge MD [address] [place], [place] [id number] PCP - General Internal Medicine 04/12/15 05/04/15 Rhonda Perales DO [address] [place] [address] PCP - General Internal Medicine 05/05/15 documented as of this encounter
--- OUTSIDE RECORDS SUMMARY | 2025-03-08 11:08 | XMS_ITS | Encounter Summary ---
Author Organization [facility] Address [address] [place] [address] Care Team Providers Care Journeyman Level Acoustic Analyst Name Role Phone Jose Erazo MD Primary Care Provider Noemi vailable Meliton Christiansen MD Primary Care Provider Unavail able Shawn Aldridge MD Primary Care Provider [phone] Rhonda Perales DO Primary Care Pro vider Unavailable Encounter Details Date Type Department Care Team Description 05/22/2012 Business Doc Medical Records [address] [place] [address] Abstract, Provider Social History Tobacco Use Types [...] on filedocumented in this encounter Care Teams Journeyman Level Acoustic Analyst Relationship Specialty Start Date End Date Jose Erazo MD PCP - General 06/30/09 10/26/14 Meliton Christiansen MD PCP - General Internal Medicine 11/07/14 04/11/15 Shawn Aldridge MD [address] [place], [place] [id number] PCP - General Internal Medicine 04/12/15 05/04/15 Rhonda Perales DO [address] [place] [address] PCP - General Internal Medicine 05/05/15 documented as of this encounter
--- OUTSIDE RECORDS SUMMARY | 2025-03-08 11:08 | XMS_ITS | Clinical Summary ---
Author Organization [facility] Address [address] [place] [address] Care Team Providers Care Supervisor Calibration Name Role Phone Rhonda Perales DO Primary Care Pro vider Unavailable Allergies Active Allergy Reactions Severity Noted Date Comments Hydromorphone Hcl Nausea and Vomiting Medium 1 Morphine Sulfate Nausea and Vomiting Medium 07/09/2011 Oxycodone Hydrochloride-Poly sorbate 80 Nausea and Vomiting Medium 07/09/2011 Toradol Gastritis Medium 07/09/2011 Hydrocodone-Acetaminophen Gastritis Medium 07/09/2011 Medications Medication Sig Dispensed Refills Start Date End Date Status oxcarbazepine (TRILEPTAL) 300 MG tablet Take 300 mg by mouth 3 times daily. 0 Active clonazepam (KLONOPIN) 1 MG tablet Take 1 mg by mouth 3 times daily as needed. 0 Active SPACER DEVICE-ADULT For use with inhalers 1 Units 0 10/24/2018 Active ALBUTEROL SULFATE (VENTOLIN HFA) 108 (90 BASE) MCG/ACT Aero Soln Take 2 Puffs by mouth every 4 hours as needed for Cough or Wheezing. 1 Inhaler 5 06/11/2019 Active baclofen (LIORESAL) 10 MG tablet Take 1 Tab by mouth at bedtime as needed (back pain into legs). 15 Tab 0 06/11/2019 Active pregabalin (LYRICA) 50 MG capsule One po bid prn 60 Cap 1 07/19/2019 Active nicotine (NICODERM CQ) 14 MG/24HR 0 08/11/2019 Active fluticasone 50 MCG/ACT nasal sprayIndications:Cou gh,Bacterial sinusitis 2 Sprays by Nasal route daily as needed for Rhinitis or Allergies. 1 Bottle 0 02/15/2020 Active FLOVENT HFA 110 MCG/ACT inhaler TAKE 1 PUFF BY MOUTH TWICE A DAY 1 Inhaler 0 02/17/2020 Active cetirizine (ZYRTEC) 10 MG tablet Take 1 Tab by mouth daily as needed for Allergies or Rhinitis. 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 Wells [facility]. 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 Consider upper endoscopy 2017. History of back surgery 05/17/2010 Overview: Dr. Amato 11/14/09-has spinal fusion L3-L5 w/Titanium plates, f/u with Dr. Amato for pain management Depression with anxiety/ Dr. Wells [facility] Psych 08/15/2008 Overview: ? Mood disorder; poss biopolar ADD (attention deficit disorder) 008 Overview: If you or your child's teachers are noticing that Juanita is demonstrating any of the following behaviors on a frequent basis, please share this with her doctor ?? not paying attention ?? daydreaming a lot ?? not being able to fall asleep easily ?? not listening ?? being easily distracted form schoolwork or play ?? forgetting things ?? in constant motion, can't sit still ?? squirming or fidgeting ?? talking too much ?? not being able to play quietly ?? acting and speaking without thinking ?? unable to wait for her turn ?? interrupting others Juanita's Care Goals In order to best manage your child's ADHD it is important to have clear care goals. These goals include: ?? working with the school/teachers, other family members and adults who see the child regularly (coaches, music instructors, etc) to help manage the symptoms of ADHD ?? taking medication as directed by your child's doctor ?? meeting with a therapist regularly if this is part of your treatment plan Your Results and your Goals Your Result/Date of Completion Your Goal/How Often Wt Readings from Last 1 Encounters: 10/28/11 169 lb 1.6 oz (76.703 kg) Maintain Healthy Weight Your Action Plan Your ADHD is well controlled and no changes are required to your current plan. Educational Resources Center for Disease Control (www.cdc.gov/ncbddd/adhd/) [place] [employer] (www.aap.org/healthtopics/adhd.cfm) National Resource Center for ADHD (www.iqix1ajgf.org) Children and Adults with Attention Deficit Hyperactivity Disorder (www.luigi.org) [place] [facility] Access Project (www.[facility].official.fm) This care plan was created in collaboration with Juanita Sun on 10/28/2011 Sciatica Resolved Problems Problem Noted Date Resolved Date Asthma, persistent not controlled 12/16/2017 08/05/2019 Odynophagia x 4 months, + weight loss 11/17/2012 04/26/2015 Overview: EGD and bx 02/22/2013: Squamous papilloma of the upper esophagus, NSAID related gastritis and duodenitis. Hyponatremia/ ? 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 mi graines, Paternal Grandmother Alive eso can cer Social History Tobacco Use Types Packs/Day Years Used Date Smoking Tobacco: Every Day Cigarettes 1 21 Smokeless Tobacco: Never Comments:trying to cut down- not willing to quit at this point Alcohol Use Standard Drinks/Week Comments Yes 1.7 (1 standard drink = 0.6 oz p ure alcohol) occasional Sex Assigned at Date Recorded Not on file Last Filed Vital Signs Vital Sign Reading Time Taken Comments Blood Pressure 128/76 08/20/2019 10:43 AM EDT Pulse 68 08/20/2019 10:43 AM EDT Temperature 36.7 ??C (98.1 ??F) 08/20/2019 10:43 AM E DT Respiratory Rate 16 08/20/2019 10:43 AM EDT Oxygen Saturation 97% 08/05/2019 11:26 AM EDT Inhaled Oxygen Concentration - - Weight 76.4 kg (168 lb 6.4 oz) 08/20/2019 10:43 AM EDT Height 165.1 cm (5' 5 ) 08/20/2019 10:43 AM EDT Body Mass Index 28.02 08/20/2019 10:43 AM EDT Plan of Treatment Health Maintenance Due Date Last Done Comments Covid-19 Vaccine (#1) 03/25/1976 DEPRESSION SCREEN 12/16/2018 12/16/2017, , 11/12/2011 MAMMOGRAM 12/16/2018 12/16/2017 (Refused) CERVICAL CANCER SCREENING 12/16/20202017 (Exception), 05/21/2012, 05/17/2010, Additional history exists BASELINE HEALTH EXAM 40-64 06/11/202106/11, 06/11/2019, 03/03/2017, Additional history exists TOBACCO CHECK/ADVISE 12/02/2022 12/02/2020, 03/13/2020, 02/17/2020, Additional history exists CHOLESTEROL SCREENING 06/11/2024 06/11/2019 , 01/04/2013, 12/13/2011, Additional history exists BMI CHECK/ADVISE 10/27/2024 07/26/2019, , 07/01/2019, Additional history exists INFLUENZA (Season Ended) 2025 08/15/2008 DTAP/TDAP/TD (3 - Td or Tdap) 06/11/2029 (Refused), 09/12/2008 PNEUMOCOCCAL VACCINE FOR HIG H RISK PATIENTS (#2) 2040 06/11/2019 (Refused) Care Teams Supervisor Calibration Relationship Specialty Start Date End Date Rhonda Perales DO PCP - General Internal Medicine 05/05/15
--- OUTSIDE RECORDS SUMMARY | 2025-03-08 11:08 | XMS_ITS | Encounter Summary ---
Author Organization [facility] Address [address] [place] [address] Care Team Providers Care Loss Prevention Investigator Name Role Phone Rhonda Perales DO Primary Care Pro vider Unavailable Reason for Visit * Reason Onset Date Comments Provider Call Back 05/25/2019 APPOINTMENT 05/25/2019 Encounter Details Date Type Department Care Team Description 05/25/2019 Telephone Adult Medicine [address] [address] Rhonda Perales DO Provider Call Back; APPOINTMENT Social History Tobacco Use Types Packs/Day Years [...] Telephone Encounter - Rhonda Mota DO - 05/26/2019 1:39 PM EDT Otc meds no alternative in interim * Telephone Encounter - Dixie Carter R.N. - 05/25/2019 12:13 PM EDT Pt wanted to let her know that she is still having pain, she is using lyrica, asking what the plan is for pain management ? She is seeing physiatry 06/01 , anyhting additional she can do ? * Telephone Encounter - Rhonda Mota DO - 05/25/2019 12:07 PM EDT No doesn't need to see me * Telephone Encounter - Dixie Carter R.N. - 05/25/2019 9:10 AM EDT Pt was seen by you 05/14 does she need to see you again tomrrow for any reasoin ? * Telephone Encounter - Marci Page - 05/25/2019 9:05 AM EDT Patient calling asking if she still needs to be seen tomorrow by Dr. Rhonda Canales. She is asking for a call back regarding this. documented in this encounter Plan of Treatment Not on file documented as of this encounter Visit Diagnoses Not on filedocumented in this encounter Care Teams Loss Prevention Investigator Relationship Specialty Start Date End Date Rhonda Perales DO PCP - General Internal Medicine 05/05/15 documented as of this encounter
--- OUTSIDE RECORDS SUMMARY | 2025-03-08 11:08 | XMS_ITS | Encounter Summary ---
Author Organization [facility] Address [address] [place] [address] Care Team Providers Care Airborne Operations Name Role Phone Jose Erazo MD Primary Care Provider Noemi vailaMeliton Ramirez MD Primary Care Provider Unavail able Shawn Aldridge MD Primary Care Provider [phone] Rhonda Perales DO Primary Care Pro vider Unavailable Encounter Details Date Type Department Care Team Description 02/19/2014 [facility] Medical Records [address] [place] [address] Mikle Amato MD Social History Tobacco Use Types [...] on filedocumented in this encounter Care Teams Airborne Operations Relationship Specialty Start Date End Date Jose Erazo MD PCP - General 06/30/09 10/26/14 Meliton Christiansen MD PCP - General Internal Medicine 11/07/14 04/11/15 Shawn Aldridge MD [address] [place] [address] PCP - General Internal Medicine 04/12/15 05/04/15 Rhonda Perales DO [address] [place] [address] PCP - General Internal Medicine 05/05/15 documented as of this encounter
--- OUTSIDE RECORDS SUMMARY | 2025-03-08 11:08 | XMS_ITS | Encounter Summary ---
Author Organization [facility] Address [address] [place] [address] Care Team Providers Care Chainstitch Pants Outseamer Name Role Phone Meliton Christiansen MD Primary Care Provider Unavail able Shawn Aldridge MD Primary Care Provider [phone] Rhonda Perales DO Primary Care Pro vider Unavailable Encounter Details Date Type Department Care Team Description 11/11/2014 [facility] Medical Records [address] [place] [address] Mikel Amato MD Social History Tobacco Use [...] on filedocumented in this encounter Care Teams Chainstitch Pants Outseamer Relationship Specialty Start Date End Date Meliton Christiansen MD PCP - General Internal Medicine 11/07/14 04/11/15 Shawn Aldridge MD [address] [place], [place] [phone] PCP - General Internal Medicine 04/12/15 05/04/15 Rhonda Perales DO [address] [place] [address] PCP - General Internal Medicine 05/05/15 documented as of this encounter
--- OUTSIDE RECORDS SUMMARY | 2025-03-08 11:08 | XMS_ITS | Encounter Summary ---
Author Organization [employer] [facility] Address [address] [place] [address] Care Team Providers Care Supervisor Webbing Name Role Phone Meliton Christiansen MD Primary Care Provider Unavail able Shawn Aldridge MD Primary Care Provider [phone] Rhonda Perales DO Primary Care Pro vider Unavailable Encounter Details Date Type Department Care Team Description 11/11/2014 [facility] Medical Records [address] [place] [address] Dalila Scott Social History Tobacco Use Types Packs/Day Years [...] on filedocumented in this encounter Care Teams Supervisor Webbing Relationship Specialty Start Date End Date Meliton Christiansen MD PCP - General Internal Medicine 11/07/14 04/11/15 Shawn Aldridge MD [address] [place] [address] PCP - General Internal Medicine 04/12/15 05/04/15 Rhonda Perales DO [address] [place] [address] PCP - General Internal Medicine 05/05/15 documented as of this encounter
--- OUTSIDE RECORDS SUMMARY | 2025-03-08 11:08 | XMS_ITS | Encounter Summary ---
Author Organization [facility] Address [address] [place] [address] Care Team Providers Care Bird Sitter Name Role Phone Rhonda Perales DO Primary Care Pro vider Unavailable Reason for Referral * (Routine) - Canceled Specialty Diagnoses / Procedures Referred By Diana obregon Referred To Contact ORTHOPEDICS / Orthopedic Procedures REFERRAL TO ORTHOPEDICS (IN NETWORK) Rhonda Perales DO [address] [place] [address] External Orthopedics Referral ID Status Reason Start Date Expiration Date V isits Requested Visits Authorized SEE REVIEW 06/02/19 Canceled 06/02/2019 1 1 Encounter Details Date Type Department Care Team Description 06/02/2019 Orders Only Adult Medicine [address] [address] Rhonda Perales DO Social History Tobacco Use [...] on filedocumented in this encounter Care Teams Bird Sitter Relationship Specialty Start Date End Date Rhonda Perales DO PCP - General Internal Medicine 05/05/15 documented as of this encounter
--- OUTSIDE RECORDS SUMMARY | 2025-03-08 11:08 | XMS_ITS | Encounter Summary ---
Author Organization [facility] Address [address] [place] [address] Care Team Providers Care Manager It Training Name Role Phone Jose Erazo MD Primary Care Provider Noemi vailable Meliton Christiansen MD Primary Care Provider Unavail able Shawn Aldridge MD Primary Care Provider [phone] Rhonda Perales DO Primary Care Pro vider Unavailable Encounter Details Date Type Department Care Team Description 04/30/2013 Release of Information Medical Records [address] [place] [address] Abstract, Provider Social History Tobacco Use Types [...] on filedocumented in this encounter Care Teams Manager It Training Relationship Specialty Start Date End Date Jose Erazo MD PCP - General 06/30/09 10/26/14 Meliton Christiansen MD PCP - General Internal Medicine 11/07/14 04/11/15 Shawn Aldridge MD [address] [place], [place] [phone] PCP - General Internal Medicine 04/12/15 05/04/15 Rhonda Perales DO [address] [place] [address] PCP - General Internal Medicine 05/05/15 documented as of this encounter
--- OUTSIDE RECORDS SUMMARY | 2025-03-08 11:08 | XMS_ITS | Encounter Summary ---
Author Organization [facility] Address [address] [place] [address] Care Team Providers Care Welt Rander Name Role Phone Rhonda Perales DO Primary Care Pro vider Unavailable Reason for Visit * Reason Onset Date Comments TEST RESULTS 10/02/2018 Encounter Details Date Type Department Care Team Description 10/02/2018 Telephone Adult Medicine [address] [id number] Rhonda Perales DO TEST RESULTS Social History [...] encounter Miscellaneous Notes * Telephone Encounter - Marci Page - 10/02/2018 12:58 PM EST Inform patient: ANY URGENT OR ABNORMAL RESULTS WIILL RESULT IN A CALL BACK TO THE PATIENT BUBBA. Type of test: : Labs (would like to know her sodium levels) Date test was performed: 09/29/18 Where was the test performed: [facility] Who ordered this test?: Rhonda Canales Is the doctor here today?: YES Can the message wait until the doctor returns?: NO IF PATIENT'S PCP IS NOT IN INSTRUCT PATIENT THAT THEY WILL RECEIVE A CALL BACK WHEN THE PCP IS IN THE OFFICE NEXT. documented in this encounter Plan of Treatment Not on file documented as of this encounter Visit Diagnoses Not on filedocumented in this encounter Care Teams Welt Rander Relationship Specialty Start Date End Date Rhonda Perales DO PCP - General Internal Medicine 05/05/15 documented as of this encounter
--- OUTSIDE RECORDS SUMMARY | 2025-03-08 11:08 | XMS_ITS | Encounter Summary ---
Author Organization [facility] Address [address] [place] [address] Care Team Providers Care Crm Business Analyst Name Role Phone Rhonda Perales DO Primary Care Pro vider Unavailable Reason for Visit * Reason Comments E-prescribe Rx Request Encounter Details Date Type Department Care Team Description 02/17/2020 Refill Adult Medicine [address] [address] Rhonda Perales DO E-prescribe Rx Request Social History Tobacco Use Types Packs/Day Years [...] encounter Miscellaneous Notes * Telephone Encounter - Faina Sarmiento M.A. - 02/17/2020 10:40 AM EDT Last ov 08/20/19 * Telephone Encounter - Tamia Montelongo - 02/17/2020 8:51 AM EDT Patient would like script to be: E-PRESCRIBED/FAXED TO PHARMACY WHEN WAS THE PATIENT'S LAST APPOINTMENT IN ADULT MEDICINE? 08/20/19 WHEN WAS THE LAST TIME THE PATIENT SAW THEIR PCP? 07/12/19 Does patient have an upcoming appointment? No will call to book (THE MEDICATION REQUESTED IS ON THE MED LIST ABOVE) All of the medications requested were on the CURRENT MEDS list Did you check the Pharmacy information above?: YES Patient wants: 30 -day supply Is this a mail order prescription request ? NO If the refill is from a FAXED refill request what is the RX # listed on the fax? N/A Patients current insurance carrier is: Payor: [employer] MCR / Plan: [facility] / Product Type: HMO [id number] documented in this encounter Plan of Treatment Not on file documented as of this encounter Visit Diagnoses Not on filedocumented in this encounter Care Teams Crm Business Analyst Relationship Specialty Start Date End Date Rhonda Perales DO PCP - General Internal Medicine 05/05/15 documented as of this encounter
--- OUTSIDE RECORDS SUMMARY | 2025-03-08 11:08 | XMS_ITS | Encounter Summary ---
Author Organization [facility] Address [address] [place] [address] Care Team Providers Care Sales Operations Assistant Name Role Phone Rhonda Perales DO Primary Care Pro vider Unavailable Reason for Visit * Reason Comments E-prescribe Rx Request Encounter Details Date Type Department Care Team Description 12/08/2019 Refill Adult Medicine [address] [address] Rhonda Perales DO E-prescribe Rx Request Social [...] encounter Miscellaneous Notes * Telephone Encounter - Christine Chairez M.A. - 12/08/2019 8:33 AM EST Lab Results Component Value Date NA 133 08/20/2019 K 4.2 08/20/2019 CO2 24 08/20/2019 CL 100 08/20/2019 BUN 8 08/20/2019 CREAT 0.73 08/20/2019 GLU 90 08/20/2019 CA 8.7 08/20/2019 GFR > 60 08/20/2019 Last ov with Yanet 07/2019 * Telephone Encounter - Johnson Tracey - 12/08/2019 8:30 AM EST Patient would like script to be: E-PRESCRIBED/FAXED TO PHARMACY WHEN WAS THE PATIENT'S LAST APPOINTMENT IN ADULT MEDICINE? 08/20/19 WHEN WAS THE LAST TIME THE PATIENT SAW THEIR PCP? 07/12/19 Does patient have an upcoming appointment? Patient was sent a My Chart request to set up an appointment as they are due. (THE MEDICATION REQUESTED IS ON THE MED [...] N/A Patients current insurance carrier is: Payor: [employer] [facility] MCR / Plan: [facility] / Product Type: HMO [id number] documented in this encounter Plan of Treatment Not on file documented as of this encounter Visit Diagnoses Not on filedocumented in this encounter Care Teams Sales Operations Assistant Relationship Specialty Start Date End Date Rhonda Perales DO PCP - General Internal Medicine 05/05/15 documented as of this encounter
--- OUTSIDE RECORDS SUMMARY | 2025-03-08 11:08 | XMS_ITS | Encounter Summary ---
Author Organization [facility] Address [address] [place] [address] Care Team Providers Care Diversional Therapist Name Role Phone Jose Erazo MD Primary Care Provider Noemi vailaMeliton Ramirez MD Primary Care Provider Unavail able Shawn Aldridge MD Primary Care Provider [phone] Rhonda Perales DO Primary Care Pro vider Unavailable Encounter Details Date Type Department Care Team Description 10/14/2010 [facility] Medical Records [address] [place] [address] Duncan Hinds MD Social History Tobacco Use Types Packs/Day [...] on filedocumented in this encounter Care Teams Diversional Therapist Relationship Specialty Start Date End Date Jose Erazo MD PCP - General 06/30/09 10/26/14 Meliton Christiansen MD PCP - General Internal Medicine 11/07/14 04/11/15 Shawn Aldridge MD [address] [place] [address] PCP - General Internal Medicine 04/12/15 05/04/15 Rhonda Perales DO [address] [place] [address] PCP - General Internal Medicine 05/05/15 documented as of this encounter
--- OUTSIDE RECORDS SUMMARY | 2025-03-08 11:08 | XMS_ITS | Encounter Summary ---
Author Organization [facility] Address [address] [place] [address] Care Team Providers Care Welding Machine Operator Helper Gas Name Role Phone Jose Erazo MD Primary Care Provider Noemi vailaMeliton Ramirez MD Primary Care Provider Unavail able Shawn Aldridge MD Primary Care Provider Rhonda Perales DO Primary Care Pro vider Unavailable Encounter Details Date Type Department Care Team Description 07/06/2014 Jig [facility] Report Medical Records [address] [place] [address] Services, [facility] [address] [address] Social History Tobacco Use Types Packs/Day Years [...] on filedocumented in this encounter Care Teams Welding Machine Operator Helper Gas Relationship Specialty Start Date End Date Jose Erazo MD PCP - General 06/30/09 10/26/14 Meliton Christiansen MD PCP - General Internal Medicine 11/07/14 04/11/15 Shawn Aldridge MD [address] [place] [address] PCP - General Internal Medicine 04/12/15 05/04/15 Rhonda Perales DO [address] [place] [address] PCP - General Internal Medicine 05/05/15 documented as of this encounter
--- OUTSIDE RECORDS SUMMARY | 2025-03-08 11:08 | XMS_ITS | Encounter Summary ---
Author Organization [facility] Address [address] [place] [address] Care Team Providers Care Pit Boss Name Role Phone Jose Muñoz MD Primary Care Provider Noemi Meliton Sanchez MD Primary Care Provider Unavail able Shawn Aldridge MD Primary Care Provider [phone] Rhonda Perales DO Primary Care Pro vider Unavailable Reason for Visit * Reason Onset Date Comments Pain, Foot 12/05/2011 Right Foot Encounter Details Date Type Department Care Team Description 12/05/2011 Telephone Adult Medicine [address] [id number] Jose Muñoz MD Pain, Foot (Right Foot) Social History Tobacco Use Types Packs/Day Years Used Date Smoking Tobacco: Every Day Cigarettes 0.3 21 Smokeless Tobacco: Never Alcohol Use Standard Drinks/Week Comments Yes 1.7 (1 standard drink = 0.6 oz p ure alcohol) Sex Assigned at Date Recorded Not on file documented as of this encounter Miscellaneous Notes * Telephone Encounter - Dixie Raul Moore - 12/05/2011 10:14 AM EST Pt is crying and states she has ongoing problems with pain in her foot, she states she needs medication for the pain as it is impacting her ability to function, she states she has swelling at times and pain when she walks. Pt was told that she could see her doctor but she needed to understand that he would not prescribe narcotic pain meds. She is very angry that she was not trusted and states that if she was not going to get medication she would not bother coming in . Pt did call dr Amato but tells me that she was offered the next available appointment in juneand she cannot wait that long. She did not say if she will keep that appointment, Message to dr liz LÓPEZ * Telephone Encounter - Lashay Cotton - 12/05/2011 10:05 AM EST Pt calling requesting call back Please advise * Telephone Encounter - Toya Lewis - 12/05/2011 8:36 AM EST Symptoms patient is presenting: The patient is calling c/o right foot pain, she states she can't walk and is unable to put on her shoes. How long has patient had these symptoms?: a month ago PCP: Jose Muñoz MD [place] Product Type: MEDICARE [id number] documented in this encounter Plan of Treatment Not on file documented as of this encounter Visit Diagnoses Not on filedocumented in this encounter Care Teams Pit Boss Relationship Specialty Start Date End Date Jose Muñoz MD PCP - General 06/30/09 10/26/14 Meliton Chrsitiansen MD PCP - General Internal Medicine 11/07/14 04/11/15 Shawn Aldridge MD [address] [place] [id number] PCP - General Internal Medicine 04/12/15 05/04/15 Rhonda Perales DO [address] [place] [id number] PCP - General Internal Medicine 05/05/15 documented as of this encounter
--- OUTSIDE RECORDS SUMMARY | 2025-03-08 11:08 | XMS_ITS | Encounter Summary ---
Author Organization [facility] Address [address] [place] [address] Care Team Providers Care Record Changer Assembler Name Role Phone Rhonda Perales DO Primary Care Pro vider Unavailable Encounter Details Date Type Department Care Team Description 12/26/2020 Old Medical Records Medical Records [address] [place] [address] Saundra Cevallos PA-C [address] [place] [address] [address] [place] [address] Social History Tobacco Use Types Packs/Day Years [...] on filedocumented in this encounter Care Teams Record Changer Assembler Relationship Specialty Start Date End Date Rhonda Perales DO PCP - General Internal Medicine 05/05/15 documented as of this encounter
--- OUTSIDE RECORDS SUMMARY | 2025-03-08 11:08 | XMS_ITS | Encounter Summary ---
Author Organization [facility] Address [address] [place] [address] Care Team Providers Care Human Resources Representative Name Role Phone Meliton Christiansen MD Primary Care Provider Unavail able Shawn Aldrigde MD Primary Care Provider [phone] Rhonda Perales DO Primary Care Pro vider Unavailable Encounter Details Date Type Department Care Team Description 11/12/2014 [facility] Medical Records [address] [place] [phone] Mikel Amato MD Social History Tobacco Use [...] on filedocumented in this encounter Care Teams Human Resources Representative Relationship Specialty Start Date End Date Meliton Christiansen MD PCP - General Internal Medicine 11/07/14 04/11/15 Shawn Aldridge MD [address] [place], [place] [phone] PCP - General Internal Medicine 04/12/15 05/04/15 Rhonda Perales DO [address] [place] [id number] PCP - General Internal Medicine 05/05/15 documented as of this encounter
--- OUTSIDE RECORDS SUMMARY | 2025-03-08 11:08 | XMS_ITS | Encounter Summary ---
Author Organization [facility] Address [address] [place] [address] Care Team Providers Care Weed Cutter Name Role Phone Jose Erazo MD Primary Care Provider Noemi vailaMeliton Ramirez MD Primary Care Provider Unavail able Shawn Aldridge MD Primary Care Provider [phone] Rhonda Perales DO Primary Care Pro vider Unavailable Encounter Details Date Type Department Care Team Description 10/05/2010 [facility] Medical Records [address] [place] [id number] Mikel Amato MD Social History Tobacco Use [...] on filedocumented in this encounter Care Teams Weed Cutter Relationship Specialty Start Date End Date Jose Erazo MD PCP - General 06/30/09 10/26/14 Meliton Christiansen MD PCP - General Internal Medicine 11/07/14 04/11/15 Shawn Aldridge MD [address] [place] [phone] PCP - General Internal Medicine 04/12/15 05/04/15 Rhonda Perales DO [address] [place] [id number] PCP - General Internal Medicine 05/05/15 documented as of this encounter
== END 2025-03-08 10:09 | disposition home or self-care (01) ==
LOC: HO.HMGCX 10:08
PROVIDERS: PCP Physician Assistant; Visit Provider Physician Assistant
DX: R10.12 Left upper quadrant pain (principal)
CPT/HCPCS: 76700

== ENCOUNTER → 2025-03-08 10:17 | Outpatient (BNV) | payer OTHER, SELFPAY | PROVIDERS: PCP Physician Assistant; Visit Provider Radiology Diagnostic Radiology | DX: R16.0 Hepatomegaly, not elsewhere classified (principal) | CPT/HCPCS: 76700 ==

== ENCOUNTER → 2025-04-07 11:24 | Outpatient (BNV) | payer OTHER, SELFPAY | PROVIDERS: PCP Physician Assistant; Visit Provider Radiology Diagnostic Radiology | DX: M50.322 Other cervical disc degeneration at C5-C6 level (principal) | CPT/HCPCS: 72141 ==

== ENCOUNTER 2025-04-07 11:26 | Outpatient (REF) | payer OTHER, SELFPAY ==
--- NOTE | ~2025-04-07 | MR_ITS ---
EXAMINATION: MR CERVICAL SPINE WITHOUT CONTRAST CLINICAL INFORMATION: Post laminectomy syndrome. COMPARISON: None available. TECHNIQUE: MRI of the cervical spine was obtained using routine sequences without contrast. FINDINGS: Paramagnetic field distortion secondary to anterior metallic plate C4 C6 and posterior elements at C4. There is a subtle bone marrow STIR signal involving vertebral body of C3. Craniocervical junction is intact with normal alignment. There is a reverse curvature apex at C3-4. Grade 1 retrolisthesis C3-4. Cervical spinal cord caliber and signal are normal. C2-3: No disc herniation. No neuroforamina stenosis.. C3-4: Broad-based disc osteophyte complex formation. No cord compression. Left neuroforamina and narrowing on a degenerative basis. C4-5: Postsurgical changes. No cord compression. No neuroforamina stenosis. C5-6: Right-sided disc osteophyte complex formation resulting in ventral indentation to the thecal sac. No cord compression. No neuroforamina stenosis. C6-7: Broad-based disc osteophyte complex formation. No cord compression. No neuroforamina stenosis. C7-T1: No cord compression. No neuroforamina stenosis T1-2: No cord compression. No gross neuroforamina stenosis. No prevertebral compartment hematoma, mass or fluid collection. Flow-void signal within the main vessels is normal. Left vertebral artery is dominant. 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 MR/MR cervical spine wo con IMPRESSION: No cord compression, cord edema and or myelopathy. Left neuroforamina and stenosis C3-4 on a degenerative basis. Electronically signed by: Jese Elizondo MD 04/07/2025 01:06 PM EDT
== END 2025-04-07 11:27 | disposition home or self-care (01) ==
LOC: HO.MRI 11:26
PROVIDERS: PCP Physician Assistant; Visit Provider Nurse Practitioner Family
DX: M96.1 Postlaminectomy syndrome, not elsewhere classified (principal); M53.82 Other specified dorsopathies, cervical region; M47.812 Spondylosis without myelopathy or radiculopathy, cervical region; M54.12 Radiculopathy, cervical region
CPT/HCPCS: 72141

== ENCOUNTER 2025-04-22 10:59 | Outpatient (AMB) | payer OTHER, SELFPAY ==
--- NOTE | 2025-04-22 11:11 | A.OFFVIS_ITS ---
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 She has a history of neck pain for several years and underwent cervical fusion at C4-C6 approximately 11 years ago. Previous imaging showed moderate to severe disc degeneration and stenosis, with the latest MRI indicating no cord comp ression or edema but narrowing at C3-C4 on the left side. The patient reported multiple falls, including slipping and hitting her head on a hardwood floor, which have occurred four times recently. She did not seek immediate medical attention following these incidents. She experiences vertigo, confusion, and nausea, which have been more pronounced since the falls. She also has a history of hyponatremia, with a sodium level of 128 mEq/L. 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 - Onset: Neck pain for several years, exacerbated by recent multiple falls. - Quality: Persistent and severe, with associated vertigo and confusion. - Location: Primarily in the neck, with radiation to the left side. - Exacerbating factors: Falls and head trauma, movements, range of motion - Relieving factors: Rest, muscle relaxants, heat - Affect: Pain impacts mood and causes confusion. - Analgesia: Tizanidine; interventional procedures discussed. - Adverse Effects: None from medications, but symptoms include vertigo and nausea. - Activities of Daily Living: Falls and confusion affect daily functioning. - Aberrant Drug Related Behaviors: None reported. PRIOR: The patient is a 49-year-old female presenting with severe neck pain associated with radicular symptoms. She was last seen in our office for neck pain in 2021. Her medical history is significant for cervical fusion at C4-C6 performed in 2013 followed by wire insertion in 2014. Most recent imaging showed moderate to severe disc degeneration above and below the fusion and mild arthritis. After a fall incident in September where she tripped and hit her head, her neck pain and stiffness have worsened, particularly affecting the left side. She describes a gripping sensation in the neck with radiation into the collarbone, exacerbated by previous Soma use, which she discontinued. Her pain levels reportedly reach 8-9/10, leading to an increase in blood pressure. The patient continues to experience symptoms from small fiber neuropathy, including numbness and tingling in her extremities. Her anxiety is managed with clonazepam, but she denies additional medication or significant hypertension management. 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 Patient is not interested in interventional treatment or chronic opioid therapy, but reports interest to trial an increase in tizanidine dose as this has been partially effective. - Onset and Timing: Symptoms exacerbated following a fall in September. Chronic neck pain first addressed in 2013 with cervical fusion. - Quality and Character: Describes pain as severe, radiating, and similar to a feeling of a hook pulling in the neck. - Primary Location: Left side of the neck, involving the collarbone. - Areas of Radiation: Into the left shoulder and possibly other areas of the neck. - Exacerbating Factors: Activity, such as attempting daily tasks, potential previous use of Soma. - Alleviating Factors: Muscle relaxants, though current regimen is insufficient. - Interference: Pain impacts basic activities such as showering and braiding hair; associated with blood pressure increases. - Affect: Anxiety and psychological distress related to pain intensity. - Analgesia: Currently using tizanidine 4 mg three times daily. Considering increasing dose. - Adverse Effects: Concerns about tizanidine affecting blood pressure, previous issues with Soma. - Activities of Daily Living: Difficulty performing tasks such as showering, personal care. - Aberrant Drug Related Behaviors: No evidence of abuse but previous use of Soma noted for pain management. PRIOR 04/15/22: Patient is a pleasant 46 years old female who presents today for follow up for chronic neck pain with history of osteoarthrtis and ACDF C4-5, C5-6 in 2014. She was previously seen in this office by Dr. Tillman in 2019. Patient reports worsening of neck pain due to sleeping position in which she twisted her neck to her right while sleeping in prone position. Patient presented with limited cervical ROM in all planes with significant exacerbation of pain with extension. Reports occasional numbness and tingling in both of her hands. She was seen by PCP and cervical plain films were obtained in January and show postsurgical ch anges status post fusion C4-C6 with intact hardware. No destructive process or osteolysis. Anterior vertebral spurring C3-C4 and C6-C7. Patient states she titrated herself off Soma last year but had to restart it due to severe muscle spasms and tenderness in her cervical and lumbar regions. She currently is taking 350 mg BID and has been asking it this can be titrated to TID. She reports ineffectiveness with baclofen and tizanidine in the past. Patient reports she has done PT in the past and currently is unable to participate in PT due to pain. However, she reports she has been performing daily HEP to maintain cervical ROM and decrease neck stiffness. Patient has also been applying ice/heat therapy with peppermint moisturizes and taking daily Ibuprofen, with partial relief. She denies any fever, chills, malaise, weight loss, chest pain, dyspnea, headaches, bladder/bowel dysfunction or saddle anesthesia. She reports intermittent weakness of her upper extremities. Patient reports she sees psychologist every 2 months for mood disorder. 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 Patient is not interested in interventional treatment options for her cervical arthritic pain at this time. She is interested in TENS unit and was able to read information of [employer] without difficulty as well follow and maintaining direct eye contact during today's encounter. PRIOR 10/05/2020 Dr. Tillman: Juanita presents today for the telephone follow-up . she was under care in this office for long period of time received several sacroiliac joint injections which were more less helpful for her pain. However the injection which was performed on 08/15/2020 was not helpful for her pain. Today she started to samreen cribe her pain she actually used common language term to describe her vagina and she said that the pain is between the legs and vagina. This is not sacroiliac joint discomfort. Due to communication difficulties with this patient - she is partially deaf and sometimes fails to were his hearing aid - this was not discovered on the previous visit. She went for CT scan of her pelvis and her sacroiliac joints are completely normal on the CT scan. Therefore it is not the pain generator. I am not sure on which indications she was receiving sacroiliac joints prior to me but obviously now sacroiliac joint injections are no further indicated for this patient. I will refer this patient to OBGYN to evaluate her pain. I also recommend her to take a careful look into activities of daily living what pain is being caused of what maneuvers. She is also scheduled to go for CT scan for evaluation of the bones of the pelvis. Prior: She has a history of lumbar fusion L3-4, L4-5, and L5-S1 in 2010. She also has had an ACDF C4-5, C5-6 in 2014. These were all done by Dr. Amato. She feels that both of thes e surgeries did help her original symptoms. She has continued pain however in her lower back and buttocks with radiation down the front of her legs R>L. She also reports burning and shooting pain that comes from her feet upwards. She is not a diabetic. She has not had an EMG/NCV. Juanita reports that no one is helping her . She was on Soma for many years and was taken off of this about a year ago. She reports her life has been a disaster since coming off of Se[employer]. She would ideally like to go back onto it. She has instead been using Baclofen, which is somewhat helpful however she is almost out of medication. She apparently cannot take NSAIDs, Tylenol, Lyrica, or Gabapentin due to side ef fects. Report of this was vague. Juanita had a consult with Dr. Vega with no new findings that would require surgery. Her lumbar spine MRI revealed surgical changes s/p anterior fusion from L3-4 to L5-S1. No residual or recurrent disc herniation. Multilevel facet hypertrophy. Cervical MRI indicated ACDF C4-5, C5-6, with small right paracentral disc bulge at C6-7. No significant stenosis, disc herniations, no cord compression or signal changes. [facility] Medical History Polyneuropathy Smoker Chronic back pain [place] (hard of hearing) Asthma Depression PONV (postoperative nausea and vomiting) Metatarsus abductus Anxiety Usher syndrome Legally blind Hyponatremia Vaginal pain Cervical (neck) region somatic dysfunction Osteoarthritis of right knee Postlaminectomy syndrome Surgical History S/P tooth extraction Hx of colonoscopy History of back surgery History of fusion of cervical spine History of lumbar fusion History of hysterectomy Family History Father CAD (coronary artery disease) COPD (chronic obstructive pulmonary disease) Social History Housing: Apartment Alcohol intake: current Alcohol intake frequency: holidays/special occasions only Patient Tobacco Use Status: Current everyday Tobacco user Tobacco use type: Cigarette Cigarette Packs Per Day: 1.5 Cigarettes Per Day: 30 Years Smoked: 34 e-Cigarette/Vaping Use: Currently Using service: No Current occupational status: disabled Current occupational exposures/hazards: No Sexual orientation: Straight/Heterosexual Gender identity: Female Cognitive needs: Yes (cane) Hearing needs: No Vision needs: Yes Review of Systems Const Details: - Neurological: Reports vertigo, confusion, and headaches. - Gastrointestinal: Reports nausea and vomiting. - Musculoskeletal: Reports neck pain and falls. - ENT: Reports nasal congestion due to cyst. All systems reviewed & are unremarkable except as noted in HPI and below Physical Exam Vital Signs: Last Vital Signs Pulse 62 04/22/25 11:15 BP 162/92 H 04/22/25 11:15 Pulse Ox 98 04/22/25 11:15 Oxygen Delivery Method Room Air 04/22/25 11:15 BMI result Body Mass Index 33.3 General: Appears afebrile. Alert and oriented. Mood and affect appropriate. Follows and participates in conversation appropriately. Respiratory effort is unlabored. No cough. Able to transition from sit to stand unassisted. Uses cane with walking. Ambulates with bilaterally normal heel strike and toe off. HEENT Head: Yes normal to inspection, Yes No palpable skull fracture present, Yes normocephalic, Yes atraumatic, No Acrocyanosis present, No occipital foramen tenderness, No raccoon eyes, Yes scalp tenderness and No periorbital ecchymosis Eyes General: appearance normal, both eyes and all related structures Neck Other: Patient with decreased cervical ROM in all planes, especially with bilateral lateral rotation, left worse than right. Reports increased pain with cervical extension. Pain is unchanged by Spurling maneuver with retraction. Elvey's tension test is positive on the right, with pain radiation to elbow and right hand with reports of numbness and tingling in both hands. Lhermitte's test was negative. DTR intact, +1 and symmetrical. Patient demonstrated 5/5 motor strength of bilateral upper extremities. 2 + radial pulses. Mild tightness and TTP throughtout bilateral upper trapezius and rhomboid muscles. Mild paravertebral tenderness over facet joints. Neck: Yes normal visual inspection, Yes no lymphadenopathy, Yes no meningeal signs, Yes supple, No anterior neck swelling, Yes no JVD, No prominent supraclavicular fat pad and Yes prominent dorsocervical fat pad Thyroid: Thyroid normal General: Yes no CVA tenderness Back/Spine/Pelvis Back: no CVA tenderness Cervical Spine: No Lhermitte's sign positive, loss of normal cervical lordosis, cervical muscular tenderness, pain with cervical ROM, Cervical spine scars present, cervical spasm and No Cervical spine tenderness Thoracic/Lumbar Spine: thoracic and lumbar spine normal to inspection, Lasegue's sign negative, straight leg raise negative bilaterally, pain with thoraco-lumbar ROM, No thoracic spinal tenderness and lumbar spinal tenderness at L4 and at L5 Neuro General: no meningeal signs Results Reviewed Results Reviewed: MR CERVICAL SPINE WITHOUT CONTRAST 04/07/25 CLINICAL INFORMATION: Post laminectomy syndrome. COMPARISON: None available. TECHNIQUE: MRI of the cervical spine was obtained using routine sequences without contrast. FINDINGS: Paramagnetic field distortion secondary to anterior metallic plate C4 C6 and posterior elements at C4. There is a subtle bone marrow STIR signal involving vertebral body of C3. Craniocervical junction is intact with normal alignment. There is a reverse curvature apex at C3-4. Grade 1 retrolisthesis C3-4. Cervical spinal cord caliber and signal are normal. C2-3: No disc herniation. No neuroforamina stenosis.. C3-4: Broad-based disc osteophyte complex formation. No cord compression. Left neuroforamina and narrowing on a degenerative basis. C4-5: Postsurgical changes. No cord compression. No neuroforamina stenosis. C5-6: Right-sided disc osteophyte complex formation resulting in ventral indentation to the thecal sac. No cord compression. No neuroforamina stenosis. C6-7: Broad-based disc osteophyte complex formation. No cord compression. No neuroforamina stenosis. C7-T1: No cord compression. No neuroforamina stenosis T1-2: No cord compression. No gross neuroforamina stenosis. No prevertebral compartment hematoma, mass or fluid collection. Flow-void signal within the main vessels is normal. Left vertebral artery is dominant. 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 IMPRESSION: No cord compression, cord edema and or myelopathy. Left neuroforamina and stenosis C3-4 on a degenerative basis. Assessment & Plan Assessment & Plan (1) Postlaminectomy syndrome: Code(s): M96.1 - Postlaminectomy syndrome, not elsewhere classified Category: Medical (2) Decreased range of motion of intervertebral discs of cervical spine: Code(s): M53.82 - Other specified dorsopathies, cervical region Category: Medical (3) Cervical spondylosis: Code(s): M47.812 - Spondylosis without myelopathy or radiculopathy, cervical region Category: Medical (4) Muscle spasm: Code(s): M62.838 - Other muscle spasm Category: Medical (5) Radiculopathy of cervical spine: Code(s): M54.12 - Radiculopathy, cervical region Category: Medical (6) Frequent falls: Code(s): R29.6 - Repeated falls Category: Medical (7) Balance disorder: Code(s): R26.89 - Other abnormalities of gait and mobility Category: Medical (8) Post-concussion headache: Code(s): G44.309 - Post-traumatic headache, unspecified, not intractable Category: Medical Plan Cervical spine MRI results were discussed with patient and her caregiver today. The patient should prioritize visiting the emergency room and PCP for evaluation due to recent falls and head trauma, which have resulted in symptoms such as vertigo, confusion, mood changes, headaches with pressure and episodic eye pressure, brain fog, and nausea. A referral to Neurology is recommended to assess for potential intracranial issues, given the history of cervical fusion and post concussion headaches due to repeated falls. Interventional pain management options, such as medial branch blocks and radiofrequency ablation, are suggested to address cervical disc degeneration and associated pain. She is hesitant towards therapeutic ESIs to address radicular symptoms due to previous experience with lumbar DMITRI. Patient will notify our office if she is ready to proceed with diagnostic bilateral cervical medial branch blocks The patient is advised to follow up with her Primary care physician s/p falls, concerns for hyponatremia and to ensure coordination of care with ENT for the nasal cyst. All questions and concerns have been answered and patient agreed with the plan. Follow up for MRI results/medication review and sooner as needed. Patient was informed and verbally consented to the use of an ambient scribe for clinic note documentation during this visit. Orders: Referrals Neurology Referral G44.309 - Post-traumatic headache, unspecified, not intractable, R26.89 - Other abnormalities of gait and mobility, R29.6 - Repeated falls Coding Level of Care Code Est Pt Level 4 (74364) Complex EM visit Add On G2211 Diagnoses Postlaminectomy syndrome M96.1 Decreased range of motion of intervertebral discs of cervical spine M53.82 Cervical spondylosis M47.812 Muscle spasm M62.838 Radiculopathy of cervical spine M54.12 Frequent falls R29.6 Balance disorder R26.89 Post-concussion headache G44.309
[2025-04-22 11:15] VITALS: BP 162/92; PULSE 62; O2SAT 98; BMI 33.3
== END 2025-04-22 11:33 | disposition home or self-care (01) ==
LOC: HO.PMC 11:00
PROVIDERS: PCP Physician Assistant; Visit Provider Nurse Practitioner Family
DX: M96.1 Postlaminectomy syndrome, not elsewhere classified (principal); M53.82 Other specified dorsopathies, cervical region; M47.812 Spondylosis without myelopathy or radiculopathy, cervical region; M62.838 Other muscle spasm; M54.12 Radiculopathy, cervical region; R29.6 Repeated falls; R26.89 Other abnormalities of gait and mobility; G44.309 Post-traumatic headache, unspecified, not intractable
CPT/HCPCS: 99214; G2211

== ENCOUNTER → 2025-04-22 10:59 | Outpatient (BNVA) | payer OTHER, SELFPAY | PROVIDERS: PCP Physician Assistant; Visit Provider Nurse Practitioner Family | DX: R29.6 Repeated falls (principal); M53.82 Other specified dorsopathies, cervical region; M54.12 Radiculopathy, cervical region; M47.812 Spondylosis without myelopathy or radiculopathy, cervical region; M62.838 Other muscle spasm; G44.309 Post-traumatic headache, unspecified, not intractable; M96.1 Postlaminectomy syndrome, not elsewhere classified; R26.89 Other abnormalities of gait and mobility | CPT/HCPCS: 99212 ==

== ENCOUNTER 2025-04-22 12:06 | Emergency (ER) | payer OTHER, SELFPAY ==
--- NOTE | ~2025-04-22 | CT_ITS ---
EXAMINATION: CT HEAD WITHOUT CONTRAST CLINICAL INFORMATION: Fall, head injury. COMPARISON: None available. TECHNIQUE: Contiguous axial imaging was performed from the skull base to vertex without intravenous administration of contrast. This CT examination was performed using dose optimization techniques as appropriate, variously including the following: *Automated exposure control *Adjustment of mA and/or kV according to patient size (this includes techniques or standardized protocols for targeted exams where dose is matched to indication/reason for exam; i.e. extremities or head) *Use of iterative reconstruction technique FINDINGS: There is no evidence of intracranial hemorrhage or extra-axial fluid collection. There is no mass effect, or edema. No CT evidence of acute territorial infarct. Ventricles, sulci, and cisterns are normal in size and configuration for patient age. No hydrocephalus. No midline shift. Negative hyperdense MCA sign. Negative insular ribbon sign. No significant white matter abnormalities. Normal pituitary. Mild atheromatous calcification of the bilateral carotid siphons. Globes and orbital contents image normally. There are bilateral lens replacements. No extracranial soft tissue abnormalities. The paranasal sinuses, mastoid air cells, and tympanic cavities are normally aerated. No suspicious bony abnormalities. There are no acute fractures evident. CT/CT head/brain wo IV con IMPRESSION: No acute intracranial abnormality. No fracture evident. Electronically signed by: Darryl Cardenas MD 04/22/2025 02:47 PM EDT
[2025-04-22 12:10] VITALS: BP 160/108; PULSE 67; RESP 16; TEMP 36.6; O2SAT 99; BMI 33.3
--- NOTE | 2025-04-22 12:14 | ED.GENADULT ---
HPI - General Adult General Chief complaint: General Medical Stated complaint: Falls- Brain Fog, Dizziness, Referred for a CT Time Seen by Provider: 04/22/25 13:22 Source: patient, RN notes reviewed and old records reviewed Mode of arrival: ambulatory Limitations: no limitations History of Present Illness ED Provider: Anna HPI narrative: 49-year-old female with past medical history significant for legal blindness, COPD, tinnitus, bipolar disorder, GERD, presents for evaluation of frequent falls and dehydration. She reports a history of vertigo in his feels similar. She reports she has fallen 4 or 5 times in the last several weeks. She lives at home with her adult son She reports she also has been neck pain for several months and had a recent cervical spine MRI on 04/07/2025 that showed left neural foraminal stenosis at C3 and C4 but no cord compression or myelopathy No other complaints or concerns at this time Related Data Home Medications ?Medication ?Instructions ?Recorded ?Confirmed clonazepam 1 mg tablet 0.500f1 mg PO TID PRN Anxiety 10/18/20 02/08/25 oxcarbazepine 300 mg tablet 300 mg PO TID 01/29/23 02/08/25 citalopram 20 mg tablet 20 mg PO DAILY 05/17/24 02/08/25 oxcarbazepine 150 mg tablet mg PO DAILY 05/17/24 02/08/25 trazodone 50 mg tablet 50 mg PO BEDTIME 05/17/24 02/08/25 citalopram 10 mg tablet 10 mg PO DAILY 03/03/25 Previous Rx's ?Medication ?Instructions ?Recorded mupirocin 2 % topical ointment 1 appl topical DAILY 15 days #22 02/08/23 grams lactulose 20 gram/30 mL oral 20 g (30 mL) PO BID PRN 02/03/24 solution constipation 10 days #600 mL pyridoxine (vitamin B6) 100 mg 100 mg PO DAILY #90 tabs 05/10/24 tablet cholecalciferol (vitamin D3) 50 50 mcg PO DAILY 90 days #90 caps 06/30/24 mcg (2,000 unit) capsule albuterol sulfate 90 mcg/actuation 2 puff PO Q6H PRN for wheezing 01/17/25 aerosol inhaler #8.5 ea torsemide 20 mg tablet 40 mg (2 x 20 mg) PO .anayeli other 02/08/25 day 30 days #30 tabs fluticasone propionate 110 1 puff inhalation BID 30 days #12 02/10/25 mcg/actuation HFA aerosol inhaler grams tizanidine 4 mg tablet 4 mg PO TID PRN muscle spasticity 03/03/25 30 days #90 tabs blood pressure test kit-large #1 ea 03/17/25 ([facility] Blood Pressure Monitor kit) tizanidine 2 mg tablet 2 mg PO TID PRN muscle spasticity 04/18/25 #90 tabs Allergies Allergy/AdvReac Type Severity Reaction Status Date / Time hydromorphone (Dilaudid) Allergy Unknown Vomiting Verified 04/22/25 12:11 morphine (MORPHINE) Allergy Unknown VOMITTING Verified 04/22/25 12:11 From OXYCONTIN Allergy Unknown VOMITTING Uncoded 02/08/25 10:38 Vicodin Allergy Unknown Vomiting Uncoded 02/08/25 10:38 Review of Systems Constitutional: Constitutional: Denies body ache(s), Denies chills and Reports headache(s) Eyes: Eyes: Denies blurry vision Comments: Legal blindness at baseline ENT: Reports vertigo, Reports dizziness, Reports headache(s) and Denies mouth lesions Cardiovascular: Cardiovascular: Denies chest pain and Denies dyspnea on exertion Respiratory: Respiratory: Denies cough and Denies dyspnea on exertion Gastrointestinal: Gastrointestinal: Denies abdominal pain, Denies nausea and Denies vomiting Musculoskeletal: Musculoskeletal: Denies back pain Integumentary/Breasts: Skin/Breast: Denies rash Neurologic: Reports vertigo, Reports dizziness, Reports headache(s) and Denies focal weakness Psychiatric: Psychiatric: Denies anxiety PMFSH Past Medical History Medical History Polyneuropathy Smoker Chronic back pain [place] (hard of hearing) Asthma Depression PONV (postoperative nausea and vomiting) Metatarsus abductus Anxiety Usher syndrome Legally blind Hyponatremia Vaginal pain Cervical (neck) region somatic dysfunction Osteoarthritis of right knee Postlaminectomy syndrome Surgical History S/P tooth extraction Hx of colonoscopy History of back surgery History of fusion of cervical spine History of lumbar fusion History of hysterectomy Family History Family History Father CAD (coronary artery disease) COPD (chronic obstructive pulmonary disease) Social History Social History Housing: Apartment Alcohol intake: never Patient Tobacco Use Status: Current everyday Tobacco user Tobacco use type: Cigarette Cigarette Packs Per Day: 1.5 Cigarettes Per Day: 30 Years Smoked: 34 e-Cigarette/Vaping Use: Currently Using Substance Use Type: Marijuana service: No Current occupational status: disabled Current occupational exposures/hazards: No Sexual orientation: Straight/Heterosexual Gender identity: Female Cognitive needs: Yes (cane) Hearing needs: No Vision needs: Yes Physical Exam ED Vital Signs: Vital Signs - 24 hr 04/22/25 12:10 04/22/25 13:44 04/22/25 15:17 Temperature 97.8 F Pulse Rate 67 55 73 Respiratory Rate 16 11 L 17 Blood Pressure 160/108 H 147/78 H 115/78 Pulse Oximetry 99 99 94 Oxygen Delivery Method Room Air Room Air Room Air BMI result Body Mass Index 33.3 Const General: healthy appearing, comfortable, no acute distress, alert and awake Nutritional Appearance: well nourished Orientation/consciousness: patient oriented x3 HENMT Head: Yes normocephalic and Yes atraumatic Throat: Yes posterior oropharynx normal Eyes Eyelids: Yes eyelids normal Conjunctivae: conjunctivae normal Sclerae: sclerae normal Corneas: corneas normal Pupils: Equal, round and reactive pupils present EOM: EOMs intact bilaterally Neck Neck: Yes full ROM Resp Effort & Inspection: normal respiratory effort, able to speak in complete sentences and not labored Skin General skin exam: elasticity normal Neuro General: patient oriented x3 Cranial nerves: Yes Equal, round and reactive pupils present and Yes Bilaterally intact EOM present Cognition (Neuro): normal cognition Extrem Other: Moving all extremities well without any obvious deformities Course Course Course Narrative: 04/22/25 1215 LUC Stark This is a Rapid Medical Examination (RME) performed by Marielle Salazar PA-C in triage. Full HPI, ROS, assessment and treatment plan per primary provider in the Main ED. Hx: 49 yo F hx polyneuropathy, asthma/COPD, [place], usher syndrome, legaly blind, here from pain management office for eval of multiple falls (x4) in the last 2 wks. reports dizziness (feels like she's on a merry go round), hx vertigo, associated nausea, headache. Plan: labs, EKG Medical Decision Making Medical Decision Making [facility] Narrative: 49-year-old female with a past medical history as above presents for evaluation of multiple falls and dizziness. She does carry a history of vertigo. She reports that she fell and hit her head in the bathtub last week. Did not get seen for this. Plan for CT scan of the brain to evaluate for traumatic injury. She had a recent cervical spine MRI. She has no objective findings of trauma on exam, no neuro deficits. Given her tinnitus and visual issues, this may be contributing to her disequilibrium. We will treat her symptoms with meclizine. Her labs are significant for a mild hyponatremia to 134. She does have a history of hyponatremia. There are significant findings Differential Diagnosis Differential Diagnoses: The differential diagnosis associated with the presentation includes Vertigo Disequilibrium Intracranial hemorrhage Calvarial fracture Lab Data [facility] Lab Attestation statement: I reviewed the patient's lab results. No leukocytosis or anemia. Normal platelet count. Mild hyponatremia as above. No other electrolyte abnormalities. Renal function within normal limits 04/22/25 12:31 04/22/25 12:31 Labs: Lab Results 04/22/25 Range/Units 12:31 WBC 7.6 (4.8-10.8) X10*3/uL RBC 4.64 (4.20-5.50) X10*6/uL Hgb 14.0 (12.0-16.0) g/dl Hct 38.9 (37.0-47.0) % MCV 83.8 (80.0-98.0) fL MCH 30.2 (27.0-33.0) pg MCHC 36.0 H (31.0-35.0) g/dl RDW 13.1 (11.0-16.0) % Plt Count 198 (160-400) X10*3/uL MPV 8.7 L (9.4-12.3) fL Immature Gran % (Auto) 0.3 (0.0-0.4) % Neut % (Auto) 59.1 (45-73) % Lymph % (Auto) 35.8 (20-40) % [place] % (Auto) 4.4 (2-11) % Eos % (Auto) 0.1 (0-4) % Baso % (Auto) 0.3 (0-2) % Lymph # (Auto) 2.7 (1.2-4.9) X10*3/uL [place] # (Auto) 0.3 (0.1-1.2) X10*3/uL Eos # (Auto) 0.0 (0.0-0.4) X10*3/uL Baso # (Auto) 0.0 (0.0-0.2) X10*3/uL Abs Immat Gran (auto) 0.02 (0.00-0.03) X10*3/uL Absolute Neuts (auto) 4.5 (2.0-8.3) x10*3/uL Absolute Nucleated RBC 0.000 (0.0-0.012) X10*3/uL Nucleated RBC % (auto) 0.0 (0.0-0.2) /100WBC Sodium 134 L (135-145) mmol/L Potassium 4.8 (3.3-5.1) mmol/L Chloride 98 (96-108) mmol/L Carbon Dioxide 28 (22-29) mmol/L Anion Gap 13 (12-20) BUN 11 (9-16) mg/dL Creatinine 0.72 (0.5-1.4) mg/dL Estim Creat Clear Calc 105.1 Estimated GFR > 60 Random Glucose 119 H (60-115) mg/dL Calcium 9.0 (8.4-10.2) mg/dL Magnesium 1.9 (1.6-2.6) mg/dL Total Bilirubin 0.4 (0.0-1.0) mg/dL AST 25 (5-31) U/L ALT 30 (0-31) U/L Alkaline Phosphatase 78 (39-117) U/L Total Protein 7.1 (6.5-8.0) g/dL Albumin 4.2 (3.5-5.0) g/dL Influenza Type A (PCR) NEGATIVE (Negative) Influenza Type B (PCR) NEGATIVE (Negative) RSV RNA Qual (PCR) NEGATIVE (Negative) SARS-CoV-2 RNA (RT-PCR) NEGATIVE (Negative) Discharge Plan Discharge Clinical Impression: Dizziness Patient Disposition: Home, Self-Care Instructions: Dizziness (ED) Additional Instructions: Your CT scan did not show any significant injury or abnormal finding. Your symptoms may be related to the visual issues combined with the hearing issues as this may throw off shore equilibrium. Follow-up with your neurologist as discussed Prescriptions: No Action mupirocin 2 % ointment 1 appl topical DAILY 15 Days Qty: 22 1RF pyridoxine (vitamin B6) 100 mg tablet 100 mg PO DAILY Qty: 90 2RF cholecalciferol (vitamin D3) 50 mcg (2,000 unit) capsule 50 mcg PO DAILY 90 Days Qty: 90 1RF albuterol sulfate 90 mcg/actuation HFA aerosol inhaler 2 puff PO Q6H PRN (Reason: for wheezing) Qty: 8.5 3RF fluticasone propionate 110 mcg/actuation HFA aerosol inhaler 1 puff inhalation BID 30 Days Qty: 12 3RF (DME) blood pressure test kit-large [[facility] Blood Pressure Monitr] Kit See Rx Instructions .Route Qty: 1 0RF Rx Instructions: As directed tizanidine 2 mg tablet 2 mg PO TID PRN (Reason: muscle spasticity) Qty: 90 1RF clonazepam 1 mg tablet 0.500f1 mg PO TID PRN (Reason: Anxiety) oxcarbazepine 300 mg tablet 300 mg PO TID lactulose 20 gram/30 mL solution 20 g PO BID PRN (Reason: constipation) 10 Days Qty: 600 0RF citalopram 20 mg tablet 20 mg PO DAILY trazodone 50 mg tablet 50 mg PO BEDTIME oxcarbazepine 150 mg tablet PO DAILY torsemide 20 mg tablet 40 mg PO .anayeli other day 30 Days Qty: 30 3RF citalopram 10 mg tablet 10 mg PO DAILY tizanidine 4 mg tablet 4 mg PO TID PRN (Reason: muscle spasticity) 30 Days Qty: 90 3RF Print Language: Indonesian
--- NOTE | 2025-04-22 12:17 | ECG_ITS ---
Test Reason : dizziness Blood Pressure : */* mmHG Vent. Rate : 58 BPM Atrial Rate : 58 BPM P-R Int : 160 ms QRS Dur : 98 ms QT Int : 414 ms P-R-T Axes : 17 38 50 degrees QTcB Int : 406 ms Sinus bradycardia Otherwise normal ECG No previous ECGs available Referred By: Johanne Salazar Electronically Signed By: COOKIE ACOSTA
[2025-04-22 12:35] LABS: MANUAL DIFF FLAG NO
[2025-04-22 12:36] LABS: Basophils Percent Auto 0.3 % (0-2); Eosinophils Percent Auto 0.1 % (0-4); Hematocrit 38.9 % (37.0-47.0); Imm Gran Abs Auto 0.02 X10*3/uL (0.00-0.03); Imm Gran Pct Auto 0.3 % (0.0-0.4); Lymphocytes Absolute Auto 2.7 X10*3/uL (1.2-4.9); Lymphocytes Percent Auto 35.8 % (20-40); Mean Corpuscular Hemoglobin 30.2 pg (27.0-33.0); Mean Corpuscular Volume 83.8 fL (80.0-98.0); Mean Platelet Volume 8.7 fL (9.4-12.3); Monocytes Absolute Auto 0.3 X10*3/uL (0.1-1.2); Monocytes Percent Auto 4.4 % (2-11); Neutrophils Absolute Auto 4.5 x10*3/uL (2.0-8.3); Neutrophils Percent Auto 59.1 % (45-73); Platelet Count 198 X10*3/uL (160-400); Red Blood Count 4.64 X10*6/uL (4.20-5.50); Red Cell Distribution Width 13.1 % (11.0-16.0); White Blood Count 7.6 X10*3/uL (4.8-10.8)
[2025-04-22 12:51] LABS: Alanine Aminotransferase 30 U/L (0-31); Albumin Level 4.2 g/dL (3.5-5.0); Alkaline Phosphatase 78 U/L (39-117); Anion Gap 13 (12-20); Aspartate Amino Transferase 25 U/L (5-31); Bilirubin Total 0.4 mg/dL (0.0-1.0); Blood Urea Nitrogen 11 mg/dL (9-16); Carbon Dioxide 28 mmol/L (22-29); Chloride 98 mmol/L (96-108); Creatinine Clr Calc Pharmacy 105.1; Estimated Glomerular Filt Rate > 60; Glucose Random 119 mg/dL (60-115); Magnesium 1.9 mg/dL (1.6-2.6); Potassium 4.8 mmol/L (3.3-5.1); Sodium 134 mmol/L (135-145); Total Protein 7.1 g/dL (6.5-8.0)
[2025-04-22 13:21] LABS: Influenza A PCR NEGATIVE (Negative); Influenza B PCR NEGATIVE (Negative); Resp Syncy Virus RNA Qual PCR NEGATIVE (Negative); SARS COV2 PCR INHOUSE NEGATIVE (Negative)
[2025-04-22 13:44] VITALS: BP 147/78; PULSE 55; RESP 11; O2SAT 99
[2025-04-22 15:17] VITALS: BP 115/78; PULSE 73; RESP 17; O2SAT 94
[2025-04-22 16:01] VITALS: BP 120/77; PULSE 79; RESP 17; TEMP 36.6; O2SAT 95
== END 2025-04-22 16:02 | disposition home or self-care (01) ==
PROVIDERS: Physician Assistant Medical; Emergency Provider Emergency Medicine; PCP Physician Assistant
DX: R42 Dizziness and giddiness (principal); R00.1 Bradycardia, unspecified; Z03.818 Encounter for observation for suspected exposure to other biological agents ruled out; R26.89 Other abnormalities of gait and mobility; R29.6 Repeated falls; Z91.81 History of falling; J45.909 Unspecified asthma, uncomplicated; F17.210 Nicotine dependence, cigarettes, uncomplicated; Z79.899 Other long term (current) drug therapy
CPT/HCPCS: 0241U; 70450; 80053; 83735; 85025; 93005; 99284; 99285

== ENCOUNTER → 2025-04-22 12:17 | Outpatient (BNV) | payer OTHER, SELFPAY | PROVIDERS: Emergency Provider Emergency Medicine; PCP Physician Assistant; Visit Provider Internal Medicine | DX: R00.1 Bradycardia, unspecified (principal) | CPT/HCPCS: 93010 ==

== ENCOUNTER → 2025-04-22 13:40 | Outpatient (BNV) | payer OTHER, SELFPAY | PROVIDERS: Emergency Provider Emergency Medicine; PCP Physician Assistant; Visit Provider Radiology Diagnostic Radiology | DX: S09.90XA Unspecified injury of head, initial encounter (principal); W19.XXXA Unspecified fall, initial encounter | CPT/HCPCS: 70450 ==

== ENCOUNTER 2025-05-05 09:47 | Outpatient (AMB) | payer OTHER, SELFPAY ==
--- NOTE | 2025-05-05 10:03 | A.OFFPC_ITS ---
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: No Allergies hydromorphone (Dilaudid) Allergy (Unknown, Verified 05/05/25 10:27) Vomiting morphine (MORPHINE) Allergy (Unknown, Verified 05/05/25 10:) VOMITTING From OXYCONTIN Allergy (Unknown, Uncoded 05/05/25 10:) VOMITTING Vicodin Allergy (Unknown, Uncoded 05/05/25 10:) Vomiting Medication List - Last Reconciled 05/05/25 by Pedro Cannon PA-C albuterol sulfate 90 mcg/actuation 2 puffs PO Q6H PRN blood pressure test kit-large ([facility] Blood Pressure Monitor kit) As directed cholecalciferol (vitamin D3) 50 mcg PO DAILY 90 days citalopram 20 mg PO DAILY citalopram 10 mg PO DAILY clonazepam 0.500f1 mg PO TID PRN fluticasone propionate 110 mcg/actuation 1 puff inhalation BID 30 days ibuprofen 800 mg PO BID PRN 15 days lactulose 20 grams (30 mL) PO BID PRN 10 days mupirocin 2% 1 appl topical DAILY 15 days oxcarbazepine 300 mg PO TID oxcarbazepine mg PO DAILY pyridoxine (vitamin B6) 100 mg PO DAILY tizanidine 4 mg PO TID PRN 30 days tizanidine 2 mg PO TID PRN torsemide 40 mg (2 x 20 mg) PO .anayeli other day 30 days trazodone 50 mg PO BEDTIME Tobacco use date assessed: 05/05/25 Dental Screening Dental Screen Date: 05/05/25 HPI [facility] 04/22 Fall HPI Details The patient is a 49-year-old female presenting with multiple falls and balance issues. She reports experiencing vertigo and equilibrium problems, which have led to several falls since returning from [place]. A CT scan of the head was performed in the ER, showing no bleeding. Her balance and visual disturbances have gotten worse leading to falls as of late. She is unsure about which specialist to consult for her condition and has been advised to see a neurologist. She has an upcoming appointment with a neurologist though would like to see a specialty Dr. In the field of assure syndrome The patient has profound hearing loss, with only 15% hearing remaining. She is concerned about the progression of her Usher syndrome, which affects her hearing and vision. She reports experiencing depression, which she attributes to her mobility issues and the impact on her daily life. She feels trapped in a mental fpc due to her condition. [facility] Medical History Polyneuropathy Smoker Chronic back pain [place] (hard of hearing) Asthma Depression PONV (postoperative nausea and vomiting) Metatarsus abductus Anxiety Usher syndrome Legally blind Hyponatremia Vaginal pain Cervical (neck) region somatic dysfunction Osteoarthritis of right knee Postlaminectomy syndrome Surgical History S/P tooth extraction Hx of colonoscopy History of back surgery History of fusion of cervical spine History of lumbar fusion History of hysterectomy Family History Father CAD (coronary artery disease) COPD (chronic obstructive pulmonary disease) Social History Housing: Apartment Alcohol intake: never Patient Tobacco Use Status: Current everyday Tobacco user Tobacco use type: Cigarette Cigarette Packs Per Day: 1.5 Cigarettes Per Day: 30 Years Smoked: 34 Packs Per Year: 51 Packs per year/per ci.00 e-Cigarette/Vaping Use: Currently Using Substance Use Type: Marijuana service: No Current occupational status: disabled Current occupational exposures/hazards: No Sexual orientation: Straight/Heterosexual Gender identity: Female Cognitive needs: Yes (cane) Hearing needs: No Vision needs: Yes Questionnaire PHQ-9 Over the last 2 weeks, how often have you been bothered by any of the following problems? 1. Little interest or pleasure in doing things: more than half the days 2. Feeling down, depressed, or hopeless: several days 3. Trouble falling or staying asleep, or sleeping too much: several days 4. Feeling tired or having little energy: more than half the days 5. Poor appetite or overeating: several days 6. Feeling bad about yourself - or that you are a failure or have let yourself or your family down: nearly every day 7. Trouble concentrating on things, such as reading the newspaper or watching television: more than half the days 8. Moving or speaking so slowly that other people could have noticed. Or the opposite - being so fidgety or restless that you have been moving around a lot more than usual: not at all 9. Thoughts that you would be better off or of hurting yourself in some way: not at all Total score: 12 Depression Screening Interpretation: Positive Depression Screening Follow-up: Existing condition Depression Screening Done: Yes 29366 - PHQ-9 Billing: Yes Source: Developed by Drs. Juwan Danielle, Chika Gallegos, aRvi Yuen and colleagues, with an educational chen from [employer]. Thrive Questionnaire Date Thrive assessed: 05/05/25 I am a: Patient What is your living situation today?: I have a steady place to live Within the past 12 months, did the food you bought not last and you didn't have the money to get more?: I choose not to answer this question Within the past 12 months, did you worry whether your food would run out before you got money to buy more?: I choose not to answer this question Do you have trouble paying for medicines?: I choose not to answer this question Do you have trouble getting transportation to medical appointments?: I choose not to answer this question Do you have trouble paying your heating and electricity bill?: I choose not to answer this question Do you have trouble taking care of your child, family member or friend?: I choose not to answer this question Do you have trouble with day-to-day activities such as bathing, preparing meals, shopping, managing finances, etc.?: Yes Are you currently unemployed and looking for a job?: I choose not to answer this question Are you interested in more education?: I choose not to answer this question Please select the resources that you would like help with: None Currently or been in a relationship where the following occur: No concerns reported THRIVE Score: 0 AUDIT C Alcohol Use Questionnaire (AUDIT-C) 1. How often do you have a drink containing alcohol?: Monthly or less 2. How many drinks containing alcohol do you have on a typical day when you are drinking?: 1 or 2 Total Score: 1 JORDAN-7 AMB Questionnaire JORDAN-7 Date JORDAN - 7 assessed: 05/05/25 Source: Developed by Drs. Juwan Danielle, Chika Gallegos, Ravi Yuen and colleagues, with an educational chen from [employer]. Review of Systems Const Denies headache(s) Eyes Denies loss of vision ENT Reports vertigo, Reports dizziness, Denies headache(s) and Denies sore throat Card Denies chest pain, Denies leg edema and Denies lightheadedness Resp Denies cough, Denies hemoptysis and Denies wheezing GI Denies abdominal pain, Denies melena, Denies constipation, Denies diarrhea and Denies vomiting Denies urinary frequency, Denies dysuria and Denies urinary urgency Musc Denies arthralgias, Denies joint swelling, Denies numbness and Denies tingling Neuro Denies Abnormal speech present, Denies behavioral changes, Reports vertigo, Reports dizziness, Denies headache(s), Denies loss of vision, Denies memory loss, Denies numbness and Denies tingling Psych Denies anxiety, Denies behavioral changes, Denies depression, Denies memory loss and Denies panic attacks Silvestre/Lymph Denies easy bleeding and Denies easy bruising Aller/Immun Denies wheezing Physical exam (Primary Care) Vital Signs: Last Vital Signs Pulse 59 05/05/25 10:04 BP 136/70 05/05/25 10:04 Pulse Ox 98 05/05/25 10:04 Oxygen Delivery Method Room Air 05/05/25 10:04 BMI result Body Mass Index 34.5 Tobacco/Smoking Status: Tobacco use Status Tobacco use date assessed 05/05/25 05/05/25 10:06 Patient Tobacco Use Status Current everyday Tobacco 05/05/25 10:06 Tobacco use type Cigarette 05/05/25 10:06 e-Cigarette/Vaping Use Currently Using 05/05/25 10:06 PHQ-9: PHQ-9 Score PHQ-9: Total score 12 05/05/25 10:19 Depression Screening Interpretation: Positive Depression Screening Follow-up: Existing condition Thrive Assessment: Date of Thrive Assessment Date Thrive assessed 05/05/25 05/05/25 10:06 Currently or been in a relationship where the following occur: No concerns reported Const General: healthy appearing, no acute distress, alert and awake Nutritional Appearance: well nourished Orientation/consciousness: oriented to person, oriented to place and oriented to time HENMT Ears: TM's normal bilaterally General nose exam: Normal nasal mucous membranes and turbinates present Eyes Conjunctivae: conjunctivae normal Sclerae: sclerae normal Pupils: Equal, round and reactive pupils present Neck Neck: Yes no lymphadenopathy and Yes no JVD Thyroid: Thyroid normal Carotids: no bruits Resp Effort & Inspection: normal respiratory effort and not tachypneic Auscultation: no crackles, no rales, no rhonchi and no wheezes Cardio Rate: regular rate Rhythm: regular rhythm Heart sounds: no murmurs and normal S1 and S2 GI Palpation (GI): Soft to palpation, nontender, no hepatomegaly and no splenomegaly Auscultation: normal bowel sounds Skin General skin exam: no rashes or lesions noted and dry skin Neuro General: oriented to person, oriented to place and oriented to time Cranial nerves: Yes Equal, round and reactive pupils present Speech: No Abnormal speech present Gait exam (Neuro): Normal gait present Motor exam (neuro): no tremor noted Extrem Right upper extremity: full ROM Left upper extremity: full ROM Right lower extremity: full ROM; no edema Left lower extremity: full ROM; no edema Psych Mental Status: mental status grossly normal Speech and movement: Normal speech and movement present Affect: normal affect Attitude: cooperative Thought process: Normal thought process present Coding Level of Care Code Est Pt Level 4 (04772) Diagnoses Usher syndrome H35.52; H90.3 Impairment of balance R26.89 Additional Codes PHQ-9 - 38692 - PHQ-9 Billing: Yes ([id number]) Assessment & Plan Assessment & Plan (1) Usher syndrome: Code(s): 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 Referral to a specialist in [place] is being considered for advanced management options. (2) Impairment of balance: Code(s): R26.89 - Other abnormalities of gait and mobility Category: Medical Plan: The patient has been experiencing vertigo, contributing to multiple falls. A neurologist consultation is recommended to further evaluate and manage this condition. She has a new balance cane being shipped to her in hopes this will help reduce her follows. 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
[2025-05-05 10:04] VITALS: BP 136/70; PULSE 59; O2SAT 98; BMI 34.5
== END 2025-05-05 10:47 | disposition home or self-care (01) ==
LOC: HO.HMCH 09:48
PROVIDERS: PCP Physician Assistant; Visit Provider Physician Assistant
DX: H35.52 Pigmentary retinal dystrophy (principal); H90.3 Sensorineural hearing loss, bilateral; R26.89 Other abnormalities of gait and mobility

== ENCOUNTER → 2025-05-05 09:47 | Outpatient (BNVA) | payer OTHER, SELFPAY | PROVIDERS: PCP Physician Assistant; Visit Provider Physician Assistant | DX: H35.52 Pigmentary retinal dystrophy (principal); H90.3 Sensorineural hearing loss, bilateral; R26.89 Other abnormalities of gait and mobility; G44.309 Post-traumatic headache, unspecified, not intractable; G62.9 Polyneuropathy, unspecified; R30.0 Dysuria | CPT/HCPCS: 96127; 99212 ==

== ENCOUNTER 2025-05-30 07:49 | Outpatient (AMB) | payer OTHER, SELFPAY ==
[2025-05-30 08:12] VITALS: BP 150/80; PULSE 57; O2SAT 95; BMI 34.3
--- NOTE | 2025-05-30 08:12 | A.OFFVIS_ITS ---
Vital Signs 05/30/25 08:12 Height 5 ft 5 in Weight 206 lb BMI 34.3 BP 150/80 H Blood Pressure Location Lt brachial Position Sitting Pulse 57 Pulse Source Pulse Oximeter Pulse Oximetry (%) 95 Oxygen Delivery Method Room Air Intake Visit Reasons: INP - Repeated falls, Post-Traumatic DAVID Intake Note: NPV referred by Samira Granados (pain management) for frequent falls. 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 Required: No Accompanied by: Self / Same As Patient Allergies hydromorphone (Dilaudid) Allergy (Unknown, Verified 05/30/25 08:17) Vomiting morphine (MORPHINE) Allergy (Unknown, Verified 05/30/25 08:17) VOMITTING From OXYCONTIN Allergy (Unknown, Uncoded 05/05/25 10:27) VOMITTING Vicodin Allergy (Unknown, Uncoded 05/05/25 10:27) Vomiting Medication List - Last Reconciled 05/30/25 by Delia Samuel MD albuterol sulfate 90 mcg/actuation 2 puffs PO Q6H PRN blood pressure test kit-large ([facility] Blood Pressure Monitor kit) As directed cholecalciferol (vitamin D3) 50 mcg PO DAILY 90 days citalopram 20 mg PO DAILY citalopram 10 mg PO DAILY clonazepam 0.500f1 mg PO TID PRN fluticasone propionate 110 mcg/actuation 1 puff inhalation BID 30 days ibuprofen 800 mg PO Q8H 30 days lactulose 20 grams (30 mL) PO BID PRN 10 days mupirocin 2% 1 appl topical DAILY 15 days oxcarbazepine 300 mg PO TID oxcarbazepine mg PO DAILY pyridoxine (vitamin B6) 100 mg PO DAILY tizanidine 4 mg PO TID PRN 30 days tizanidine 2 mg PO TID PRN 90 days torsemide 40 mg (2 x 20 mg) PO .anayeli other day 30 days trazodone 50 mg PO BEDTIME HPI Comments Details: 49y/o female comes for evaluation of post concussion headaches falls and balance issues. she is also seeing for neuropathy. On April 06 2025 she was cleaning her house and she fell on her back and hit h er head against the wall. she was awake but since then she has dizziness, vertigo , headaches - she says her myelogram in 2013 was done her spinal sac was not closed?and her dye went to her brain , she almost from it and since then she has been having head pain. she also has neck pain and had deg disc disease. she is under care of [facility] . she also had multiple surgeries.) 2 neck and 3 back ) she describes the head pain as pressure in her left temporal frontal region and can last 30 min with neck pain. she responds to ibuprofen . she has about 4 /week. she has light sensitivity.No nausea or vomiting.she sleeps good with trazadone. she started having frequent falls last 1 year . she had 15-20 falls this year.she usually falls when she dizzy , her legs give away . she says her equilibrium is not good. she is legally blind .S he has a history of neck pain for several years and underwent cervical fusion at C4-C6 approximately 11 years ago. Previous imaging showed moderate to severe disc degeneration and stenosis, with the latest MRI indicating no cord compression or edema but narrowing at C3-C4 on the left side. The patient reported multiple falls, including slipping and hitting her head on a hardwood floor, which have occurred four times recently. She did not seek immediate medical attention following these incidents. She experiences vertigo, confusion, and nausea, which have been more pronounced since the falls. She also has a history of hyponatremia, with a sodium level of 128 mEq/L. 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 she is on trilpetal for Bipolar disorder. she does not drive . [facility] Medical History Frequent falls Polyneuropathy Smoker Chronic back pain [place] (hard of hearing) Asthma Depression PONV (postoperative nausea and vomiting) Metatarsus abductus Anxiety Usher syndrome Legally blind Hyponatremia Vaginal pain Cervical (neck) region somatic dysfunction Osteoarthritis of right knee Postlaminectomy syndrome Surgical History S/P tooth extraction Hx of colonoscopy History of back surgery History of fusion of cervical spine History of lumbar fusion History of hysterectomy Family History Father CAD (coronary artery disease) COPD (chronic obstructive pulmonary disease) Social History Housing: Apartment Alcohol intake: never Patient Tobacco Use Status: Current everyday Tobacco user Tobacco use type: Cigarette Cigarette Packs Per Day: 1.5 Cigarettes Per Day: 30 Years Smoked: 34 e-Cigarette/Vaping Use: Currently Using Substance Use Type: Marijuana service: No Current occupational status: disabled Current occupational exposures/hazards: No Sexual orientation: Straight/Heterosexual Gender identity: Female Cognitive needs: Yes (cane) Hearing needs: No Vision needs: Yes Physical Exam Vital Signs: Last Vital Signs Pulse 57 05/30/25 08:12 BP 150/80 H 05/30/25 08:12 Pulse Ox 95 05/30/25 08:12 Oxygen Delivery Method Room Air 05/30/25 08:12 BMI result Body Mass Index 34.3 Const General: cooperative and comfortable Nutritional Appearance: average body habitus Orientation/consciousness: patient oriented x3 HEENT Head: Yes normal to inspection, Yes No palpable skull fracture present, Yes normocephalic, Yes atraumatic, No Acrocyanosis present, No occipital foramen tenderness, No raccoon eyes, Yes scalp tenderness and No periorbital ecchymosis Neck Other: Patient with decreased cervical ROM in all planes, Neuro General: patient oriented x3, tone normal and moves all extremities Cranial nerves: Yes Facial sensation intact/muscles of mastication intact, Yes Bilaterally intact EOM present, Yes Nystagmus not present, Yes Normal facial strength present and Yes Midline tongue present Cognition (Neuro): normal cognition Gait exam (Neuro): Antalgic gait present Motor exam (neuro): 5/5 motor strength present throughout and Normal motor muscle tone present throughout Deep tendon reflexes (DTR's): Right triceps reflex intensity grade: 1+, Left triceps reflex intensity grade: 1+, Rt Biceps (C5, C6): 1+, Left biceps reflex intensity grade: 1+, Right brachioradialis reflex intensity grade: 1+, Left brachioradialis reflex intensity grade: 1+, Right patellar reflex intensity grade: 1+ and Left patellar reflex intensity grade: 1+ Assessment & Plan Assessment & Plan (1) Post-concussion headache: Comment: cervicogenic headache - responds to [facility] meds Code(s): G44.309 - Post-traumatic headache, unspecified, not intractable Category: Medical (2) Cervical spondylosis: Code(s): M47.812 - Spondylosis without myelopathy or radiculopathy, cervical region Category: Medical (3) Frequent falls: Comment: multifactorial - spondylosis , ? spinals tenosis , medications etc Code(s): R29.6 - Repeated falls Category: Medical Plan I suggested following up with pain management for her spondylosis. Consider PT to improve balance Discussed fall prevention No evidence of cerebellar atxia Coding Level of Care Code New Pt Level 4 (41339) Diagnoses Post-concussion headache G44.309 Cervical spondylosis M47.812 Frequent falls R29.6
== END 2025-05-30 09:20 | disposition home or self-care (01) ==
LOC: HO.HSMS 07:49
PROVIDERS: PCP Physician Assistant; Visit Provider Psychiatry & Neurology Neurology
DX: G44.309 Post-traumatic headache, unspecified, not intractable (principal); M47.812 Spondylosis without myelopathy or radiculopathy, cervical region; R29.6 Repeated falls
CPT/HCPCS: 99204

== ENCOUNTER → 2025-05-30 07:49 | Outpatient (BNVA) | payer OTHER, SELFPAY | PROVIDERS: PCP Physician Assistant; Visit Provider Psychiatry & Neurology Neurology | DX: M47.812 Spondylosis without myelopathy or radiculopathy, cervical region (principal); G44.309 Post-traumatic headache, unspecified, not intractable; R29.6 Repeated falls | CPT/HCPCS: 99202 ==

== ENCOUNTER 2025-07-04 12:53 | Outpatient (AMB) | payer OTHER, SELFPAY ==
--- NOTE | 2025-07-04 12:58 | A.OFFPC_ITS ---
Vital Signs 07/04/25 12:59 07/04/25 13:41 Height 5 ft 5 in Weight 194 lb 8 oz BMI 32.4 BP 140/80 H 128/80 Blood Pressure Location Lt brachial Position Sitting Respiration 74 H Pulse Source Pulse Oximeter Temp Source Temporal Artery Scan Pulse Oximetry (%) 98 Oxygen Delivery Method Room Air Intake Visit Reasons: Annual exam Intake Note: Patient is here today for a physical. 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 Required: No Special Events Driver: Not Required per policy Accompanied by: Self / Same As Patient Allergies hydromorphone (Dilaudid) Allergy (Unknown, Verified 07/04/25 13:15) Vomiting morphine (MORPHINE) Allergy (Unknown, Verified 07/04/25 13:15) VOMITTING gabapentin Adverse Reaction (Verified 07/04/25 13:26) Dizziness From OXYCONTIN Allergy (Unknown, Uncoded 07/04/25 13:15) VOMITTING Vicodin Allergy (Unknown, Uncoded 07/04/25 13:15) Vomiting Medication List - Last Reconciled 07/04/25 by Pedro Cannon PA-C albuterol sulfate 90 mcg/actuation 2 puffs PO Q6H PRN blood pressure test kit-large ([facility] Blood Pressure Monitor kit) As directed cholecalciferol (vitamin D3) 50 mcg PO DAILY 90 days citalopram 20 mg PO DAILY citalopram 10 mg PO DAILY clonazepam 0.500f1 mg PO TID PRN fluticasone propionate 110 mcg/actuation 1 puff inhalation BID 30 days ibuprofen 800 mg PO Q8H 30 days lactulose 20 grams (30 mL) PO BID PRN 10 days oxcarbazepine 300 mg PO TID oxcarbazepine mg PO DAILY pyridoxine (vitamin B6) 100 mg PO DAILY tizanidine 4 mg PO TID PRN 30 days torsemide 40 mg (2 x 20 mg) PO .anayeli other day 30 days trazodone 50 mg PO BEDTIME Tobacco use date assessed: 07/04/25 Dental Screening Dental Screen Date: 05/05/25 Did you have a dental visit in the last 12 months?: No Did you have a dental problem in the last 6 months where you did not have access to dental care?: No Was dental information given to patient?: No HPI Annual exam HPI Details Patient is a 49-year-old female here today for routine annual physical ? Patient has a past medical history significant for post-laminectomy syndrome, asthma, polyneuropathy ( Small fibroneuropathy) , retinitis, smoker, legally blind. Concern--> The patient reports a history of hypertension with blood pressure readings often in the 140s/90s range, with occasional spikes to 171/118 mmHg. She has been monitoring her blood pressure at home and notes variability in readings, with some normal values. She attributes some of the fluctuations to recent use of ibuprofen PM, which she started recently. ..' Neuropathy: Patient continues on Soma to which she reports remarkable improvement in her pain and is able to walk 5-6 miles per day.? Has been able to reduce her weight due to being more physically active. We increased her dose to 1.5 tablets in the morning and 1 tablet at night. Of note has been able to lose significant amount of weight due to being more physically active since her pain has been better control. .. Cervical Spine disease: MRI cervical spine showing narrow foraminal stenosis at C3-C4. The patient has a history of cervical spinal stenosis, described as moderate to severe, with associated degenerative disease. She experiences neck pain and involuntary movements, which she describes as feeling like being in a tub of ice cubes. These movements have been more frequent and sometimes feel like seizures, although she remains aware during episodes. .. Smoker:? Unfortunately continues to smoke a pack per day and reports her triggers are her home stress.? She reports smoking more as of late. .. / bipolar disorder generalized anxiety disorder:? Has been restarted on Trileptal feels her mental health has improved.? She has been started on SSRI therapy as well.. Patient continues to follow a therapist and a mental health provider.? She continues with the p.r.n. use of clonazepam for anxiety with decent affect.? ?Mammogram: Needs up-to-date mammogram- Declines mammo Colonoscopy: Colonoscopy done in 2020 hyperplastic polyp-10 years Vaccines: Up-to-date with COVID vaccine, up-to-date with tetanus vaccine, needs pneumonia vaccine (declines at this time) [facility] Medical History Frequent falls Polyneuropathy Smoker Chronic back pain [place] (hard of hearing) Asthma Depression PONV (postoperative nausea and vomiting) Metatarsus abductus Anxiety Usher syndrome Legally blind Hyponatremia Vaginal pain Cervical (neck) region somatic dysfunction Osteoarthritis of right knee Postlaminectomy syndrome Surgical History S/P tooth extraction Hx of colonoscopy History of back surgery History of fusion of cervical spine History of lumbar fusion History of hysterectomy Family History Father CAD (coronary artery disease) COPD (chronic obstructive pulmonary disease) Social History Housing: Apartment Alcohol intake: never Patient Tobacco Use Status: Current everyday Tobacco user Tobacco use type: Cigarette Cigarette Packs Per Day: 1.5 Cigarettes Per Day: 30 Years Smoked: 34 e-Cigarette/Vaping Use: Currently Using Second Hand Smoke Exposure: Yes Substance Use Type: Marijuana service: No Current occupational status: disabled Current occupational exposures/hazards: No Sexual orientation: Straight/Heterosexual Gender identity: Female Cognitive needs: Yes (cane) Hearing needs: No Vision needs: Yes Questionnaire PHQ-9 Over the last 2 weeks, how often have you been bothered by any of the following problems? 1. Little interest or pleasure in doing things: more than half the days 2. Feeling down, depressed, or hopeless: several days 3. Trouble falling or staying asleep, or sleeping too much: several days 4. Feeling tired or having little energy: more than half the days 5. Poor appetite or overeating: several days 6. Feeling bad about yourself - or that you are a failure or have let yourself or your family down: nearly every day 7. Trouble concentrating on things, such as reading the newspaper or watching television: more than half the days 8. Moving or speaking so slowly that other people could have noticed. Or the opposite - being so fidgety or restless that you have been moving around a lot more than usual: not at all 9. Thoughts that you would be better off or of hurting yourself in some way: not at all Total score: 12 Depression Screening Interpretation: Positive Depression Screening Follow-up: Existing condition Depression Screening Done: Yes 58554 - PHQ-9 Billing: Yes Source: Developed by Drs. Juwan LChika Dorsey Kurt Kroenke and colleagues, with an educational chen from [employer]. Thrive Questionnaire Date Thrive assessed: 05/05/25 I am a: Patient What is your living situation today?: I have a steady place to live Within the past 12 months, did the food you bought not last and you didn't have the money to get more?: I choose not to answer this question Within the past 12 months, did you worry whether your food would run out before you got money to buy more?: I choose not to answer this question Do you have trouble paying for medicines?: I choose not to answer this question Do you have trouble getting transportation to medical appointments?: I choose not to answer this question Do you have trouble paying your heating and electricity bill?: I choose not to answer this question Do you have trouble taking care of your child, family member or friend?: I choose not to answer this question Do you have trouble with day-to-day activities such as bathing, preparing meals, shopping, managing finances, etc.?: Yes Are you currently unemployed and looking for a job?: I choose not to answer this question Are you interested in more education?: I choose not to answer this question Please select the resources that you would like help with: None Currently or been in a relationship where the following occur: No concerns reported THRIVE Score: 0 AUDIT C Alcohol Use Questionnaire (AUDIT-C) 1. How often do you have a drink containing alcohol?: Monthly or less 2. How many drinks containing alcohol do you have on a typical day when you are drinking?: 1 or 2 Total Score: 1 JORDAN-7 AMB Questionnaire JORDAN-7 Date JORDAN - 7 assessed: 07/04/25 Feeling nervous, anxious, or on edge: 3 = Nearly every day Not being able to stop or control worryin = More than half the days Worrying too much about different things: 2 = More than half the days Trouble relaxin = Not at all Being so restless that it is hard to sit still: 2 = More than half the days Becoming easily annoyed or irritable: 2 = More than half the days Feeling afraid as if something awful might happen: 1 = Several days Total JORDAN-7 score (0-4 normal; 5-9 mild; 10-14 moderate; 15-21 severe): 12 Source: Developed by Drs. Juwan Danielle, Chika Gallegos, Ravi Yuen and colleagues, with an educational chen from [employer]. JORDAN-7 Assessment Billing JORDAN-7 Assessment Tool: JORDAN-7 Assessment 07282 Physical exam (Primary Care) Vital Signs: Last Vital Signs Resp 74 H 07/04/25 12:59 BP 140/80 H 07/04/25 12:59 Pulse Ox 98 07/04/25 12:59 Oxygen Delivery Method Room Air 07/04/25 12:59 BMI result Body Mass Index 32.4 BMI Assessment/Plan discussion: High BMI High, discussed plan: lifestyle, weight reduction, dietary and physical activity Tobacco/Smoking Status: Tobacco use Status Tobacco use date assessed 07/04/25 07/04/25 12:59 Patient Tobacco Use Status Current everyday Tobacco 07/04/25 12:59 Tobacco use type Cigarette 07/04/25 12:59 e-Cigarette/Vaping Use Currently Using 07/04/25 12:59 PHQ-9: PHQ-9 Score PHQ-9: Total score 12 07/04/25 13:09 Depression Screening Interpretation: Positive Depression Screening Follow-up: Existing condition Thrive Assessment: Date of Thrive Assessment Date Thrive assessed 05/05/25 07/04/25 12:59 Currently or been in a relationship where the following occur: No concerns reported Const Other: OBESe Coding Level of Care Code Est Pt Prev Care 40-64y(84378) Diagnoses Annual physical exam Z00.00 Radiculopathy of cervical spine M54.12 Tobacco dependence F17.200 Primary hypertension I10 Hypertension type: primary hypertension Menopausal problem N95.9 Bipolar 1 disorder F31.9 Additional Codes JORDAN-7 Assessment Billing - JORDAN-7 Assessment Tool: JORDAN-7 Assessment 05797 ([id number]) PHQ-9 - 34504 - PHQ-9 Billing: Yes ([id number]) Assessment & Plan Assessment & Plan (1) Annual physical exam: Code(s): Z00.00 - Encounter for general adult medical examination without abnormal findings Category: Medical Plan: As per HPI (2) Radiculopathy of cervical spine: Code(s): M54.12 - Radiculopathy, cervical region Category: Medical Plan: The plan includes increasing tizanidine doses to 12 mg daily in divided doses. An x-ray is ordered for cervical spine assessment post-impact. MRI of cervical spine showing--> Left neuroforamina and stenosis C3-4 on a degenerative basis. We did discuss the possibility and doing physical therapy though she declines at this time. She has seen pain management though was not interested in doing any injections (3) Tobacco dependence: Code(s): F17.200 - Nicotine dependence, unspecified, uncomplicated Category: Medical Plan: Patient does understand she needs to quit smoking though has found it very difficult to do so. She is not interested in quitting smoking at this time. (4) HTN (hypertension): Code(s): I10 - Essential (primary) hypertension Category: Medical Qualifiers: Hypertension type: primary hypertension Qualified Code(s): I10 - Essential (primary) hypertension Plan: Patient's blood pressure on subsequent readings improved. She is not interested in blood pressure medication at this time. Will continue monitoring and making lifestyle and dietary changes to help reduce her blood pressure. Goal blood pressure is to be consistently below 140/90 (5) Menopausal problem: Code(s): N95.9 - Unspecified menopausal and perimenopausal disorder Category: Medical Plan: Patient does report having night sweats. She does report getting a partial hysterectomy years ago. Will check her follicle stimulating hormone evaluate if she may be in menopause at this time. (6) Bipolar 1 disorder: Code(s): F31.9 - Bipolar disorder, unspecified Category: Medical Plan: Patient continues to follow a psychiatrist. She continues on mood stabilizers which has been helpful for her mood and anxiety. Orders: Orders Complete Blood Count no Diff Today I10 - Essential (primary) hypertension Comprehensive [place]. Panel Fast Today I10 - Essential (primary) hypertension Follicle Stimulating Hormone Today N95.9 - Unspecified menopausal and perimenopausal disorder
[2025-07-04 12:59] VITALS: BP 140/80; RESP 74; O2SAT 98; BMI 32.4
[2025-07-04 13:41] VITALS: BP 128/80
== END 2025-07-04 13:48 | disposition home or self-care (01) ==
LOC: HO.HMCH 12:53
PROVIDERS: PCP Physician Assistant; Visit Provider Physician Assistant
DX: Z00.00 Encounter for general adult medical examination without abnormal findings (principal); M54.12 Radiculopathy, cervical region; F31.9 Bipolar disorder, unspecified; F17.200 Nicotine dependence, unspecified, uncomplicated; I10 Essential (primary) hypertension; N95.9 Unspecified menopausal and perimenopausal disorder

== ENCOUNTER → 2025-07-04 12:53 | Outpatient (BNVA) | payer OTHER, SELFPAY | PROVIDERS: PCP Physician Assistant; Visit Provider Physician Assistant | DX: Z00.00 Encounter for general adult medical examination without abnormal findings (principal); I10 Essential (primary) hypertension; G62.9 Polyneuropathy, unspecified; F31.9 Bipolar disorder, unspecified; F41.9 Anxiety disorder, unspecified; M54.12 Radiculopathy, cervical region; N95.9 Unspecified menopausal and perimenopausal disorder; F17.210 Nicotine dependence, cigarettes, uncomplicated | CPT/HCPCS: 96127; 99396 ==

== ENCOUNTER 2025-07-22 09:04 | Outpatient (REF) | payer OTHER, SELFPAY ==
--- OUTSIDE RECORDS SUMMARY | 2025-07-22 09:43 | XMS_ITS | Encounter Summary ---
Author Organization [facility] Address [address] [place] [address] Care Team Providers Care Staff Radiographer Name Role Phone Rhonda Perales DO Primary Care Pro vider Unavailable Reason for Visit * Reason Comments E-prescribe Rx Request Encounter Details Date Type Department Care Team Description 03/13/2020 Refill Adult Medicine [address] [address] Rhonda Perales DO E-prescribe Rx Request Social [...] Telephone Encounter - Faina Sarmiento M.A. - 03/13/2020 11:09 AM EDT Last ov 08/20/20 7 day supply given pt needs to be seen for further refills * Telephone Encounter - Tamia Montelongo - 03/13/2020 9:49 AM EDT Patient would like script to be: E-PRESCRIBED/FAXED TO PHARMACY WHEN WAS THE PATIENT'S LAST APPOINTMENT IN ADULT MEDICINE? 08/20/19 WHEN WAS THE LAST TIME THE PATIENT SAW THEIR PCP? 06/25/19 Does patient have an upcoming appointment? No-unable to reach left [facility] to call for appointment due to refill request. Appt due (THE MEDICATION REQUESTED IS ON THE MED LIST ABOVE) All of the medications requested were on the CURRENT MEDS list Did you check the Pharmacy information above?: YES Patient wants: 90 -day supply Is this a mail order prescription request ? NO If the refill is from a FAXED refill request what is the RX # listed on the fax? N/A Patients current insurance carrier is: Payor: [facility] MCR / Plan: ONE CARE [facility] / Product Type: HMO [id number] documented in this encounter Plan of Treatment Not on file documented as of this encounter Visit Diagnoses Not on filedocumented in this encounter Care Teams Staff Radiographer Relationship Specialty Start Date End Date Rhonda Perales DO PCP - General Internal Medicine 05/05/15 documented as of this encounter
--- OUTSIDE RECORDS SUMMARY | 2025-07-22 09:43 | XMS_ITS | Encounter Summary ---
Author Organization [facility] Address [address] [place] [address] Care Team Providers Care Licensed Tax Consultant Name Role Phone Jose Muñoz MD Primary Care Provider Noemi Meliton Sanchez MD Primary Care Provider Unavail able Shawn Aldridge MD Primary Care Provider [phone] Rhonda Perales DO Primary Care Pro vider Unavailable Reason for Visit * Reason Onset Date Comments Pain, Foot 12/05/2011 Right Foot Encounter Details Date Type Department Care Team Description 12/05/2011 Telephone Adult Medicine [address] [id number] Jose Muñoz MD Pain, Foot (Right Foot) [...] dr liz LÓPEZ * Telephone Encounter - Lasahy Cotton - 12/05/2011 10:05 AM EST Pt [...] [place] Product Type: [place]ARE [id number] documented in this encounter Plan of Treatment Not on file documented as of this encounter Visit Diagnoses Not on filedocumented in this encounter Care Teams Licensed Tax Consultant Relationship Specialty Start Date End Date Jose Muñoz MD PCP - General 06/30/09 10/26/14 Meliton Christiansen MD PCP - General Internal Medicine 11/07/14 04/11/15 Shawn Aldridge MD [address] [place] [id number] PCP - General Internal Medicine 04/12/15 05/04/15 Rhonda Perales DO [address] [place] [id number] PCP - General Internal Medicine 05/05/15 documented as of this encounter
--- OUTSIDE RECORDS SUMMARY | 2025-07-22 09:43 | XMS_ITS | Encounter Summary ---
Author Organization [facility] Address [address] [place] [address] Care Team Providers Care Community Health Education Coordinator Name Role Phone Rhonda Perales DO Primary Care Pro vider Unavailable Encounter Details Date Type Department Care Team Description 07/30/2019 Old Medical Records Medical Records [address] [place] [id number] Abstract, Provider Social History Tobacco Use Types [...] on filedocumented in this encounter Care Teams Community Health Education Coordinator Relationship Specialty Start Date End Date Rhonda Perales DO PCP - General Internal Medicine 05/05/15 documented as of this encounter
--- OUTSIDE RECORDS SUMMARY | 2025-07-22 09:43 | XMS_ITS | Encounter Summary ---
Author Organization [facility] Address [address] [place] [address] Care Team Providers Care Engineering Technologist Name Role Phone Jose Erazo MD Primary Care Provider Noemi vailable Meliton Christiansen MD Primary Care Provider Unavail able Shawn Aldridge MD Primary Care Provider [phone] Rhonda Perales DO Primary Care Pro vider Unavailable Encounter Details Date Type Department Care Team Description 01/22/2012 Qa Software Test Engineer Report Medical Records [address] [place] [id number] Social History Tobacco Use Types Packs/Day Years [...] on filedocumented in this encounter Care Teams Engineering Technologist Relationship Specialty Start Date End Date Jose Erazo MD PCP - General 06/30/09 10/26/14 Meliton Christiansen MD PCP - General Internal Medicine 11/07/14 04/11/15 Shawn Aldridge MD [address] [place], [place] [phone] PCP - General Internal Medicine 04/12/15 05/04/15 Rhonda Perales DO [address] [place] [id number] PCP - General Internal Medicine 05/05/15 documented as of this encounter
--- OUTSIDE RECORDS SUMMARY | 2025-07-22 09:43 | XMS_ITS | Encounter Summary ---
Author Organization [facility] Address [address] [place] [address] Care Team Providers Care Label Paster Name Role Phone Jose Erazo MD Primary Care Provider Noemi vailaMeliton Ramirez MD Primary Care Provider Unavail able Shawn Aldridge MD Primary Care Provider [phone] Rhonda Perales DO Primary Care Pro vider Unavailable Encounter Details Date Type Department Care Team Description 09/28/2010 Hospital Medical Records [address] [place] [address] Mikel Amato MD Social History Tobacco Use [...] on filedocumented in this encounter Care Teams Label Paster Relationship Specialty Start Date End Date Jose Erazo MD PCP - General 06/30/09 10/26/14 Meliton Christiansen MD PCP - General Internal Medicine 11/07/14 04/11/15 Shawn Aldridge MD [address] [place] [id number] PCP - General Internal Medicine 04/12/15 05/04/15 Rhonda Perales DO [address] [place] [id number] PCP - General Internal Medicine 05/05/15 documented as of this encounter
--- OUTSIDE RECORDS SUMMARY | 2025-07-22 09:43 | XMS_ITS | Encounter Summary ---
Author Organization [facility] Address [address] [place] [address] Care Team Providers Care Hand Cementer Name Role Phone Rhonda Perales DO Primary Care Pro vider Unavailable Reason for Referral * Non TRISH (Routine) - Authorized/Booked Specialty Diagnoses / Procedures Referred By Diana obregon Referred To Contact Nephrology Procedures REFERRAL TO NEPHROLOGY Lawanda Butler PA-C [address] [place] [address] Yuval Chilel MD [address] [place] [id number] Referral ID Status Reason Start Date Expiration Date V isits Requested Visits Authorized [id number] Authorized/B ooked 09/13/2016 09/13/2017 1 1 Reason for Visit * Reason Onset Date Comments Abnormal Test Results 09/13/2016 Encounter Details Date Type Department Care Team Description 09/13/2016 Telephone Adult Medicine [address] [address] Rhonda Perales DO Abnormal Test Results Social [...] done in 2014. Please call patient at [phone] documented in this encounter Plan of Treatment Not on file documented as of this encounter Visit Diagnoses Not on filedocumented in this encounter Care Teams Hand Cementer Relationship Specialty Start Date End Date Rhonda Perales DO PCP - General Internal Medicine 05/05/15 documented as of this encounter
--- OUTSIDE RECORDS SUMMARY | 2025-07-22 09:43 | XMS_ITS | Encounter Summary ---
Author Organization [facility] Address [address] [place] [address] Care Team Providers Care Machine Binder Stripper Name Role Phone Jose Erazo MD Primary Care Provider Noemi vailable Meliton Christiansen MD Primary Care Provider Unavail able Shawn Aldridge MD Primary Care Provider [phone] Rhonda Perales DO Primary Care Pro vider Unavailable Encounter Details Date Type Department Care Team Description 11/13/2011 Business Doc Medical Records [address] [place] [id number] Abstract, Provider Social History Tobacco Use Types [...] on filedocumented in this encounter Care Teams Machine Binder Stripper Relationship Specialty Start Date End Date Jose Erazo MD PCP - General 06/30/09 10/26/14 Meliton Christiansen MD PCP - General Internal Medicine 11/07/14 04/11/15 Shawn Aldridge MD [address] [place], [place] [phone] PCP - General Internal Medicine 04/12/15 05/04/15 Rhonda Perales DO [address] [place] [address] PCP - General Internal Medicine 05/05/15 documented as of this encounter
--- OUTSIDE RECORDS SUMMARY | 2025-07-22 09:43 | XMS_ITS | Encounter Summary ---
Author Organization [facility] Address [address] [place] [address] Care Team Providers Care Apron Man Name Role Phone Rhonda Perales DO Primary Care Pro vider Unavailable Reason for Visit * Reason Comments E-prescribe Rx Request Encounter Details Date Type Department Care Team Description 12/08/2019 Refill Adult Medicine [address] [address] Rhonda Perales DO E-prescribe Rx Request Social [...] N/A Patients current insurance carrier is: Payor: [employer] [facility] MCR / Plan: [facility] / Product Type: HMO [id number] documented in this encounter Plan of Treatment Not on file documented as of this encounter Visit Diagnoses Not on filedocumented in this encounter Care Teams Apron Man Relationship Specialty Start Date End Date Rhonda Perales DO PCP - General Internal Medicine 05/05/15 documented as of this encounter
--- OUTSIDE RECORDS SUMMARY | 2025-07-22 09:43 | XMS_ITS | Encounter Summary ---
Author Organization [facility] Address [address] [place] [address] Care Team Providers Care Director Of Materials Management Name Role Phone Rhonda Perales DO Primary Care Pro vider Unavailable Encounter Details Date Type Department Care Team Description 07/22/2019 Release of Information Medical Records [address] [place] [id number] Abstract, Provider Social History Tobacco Use Types [...] on filedocumented in this encounter Care Teams Director Of Materials Management Relationship Specialty Start Date End Date Rhonda Perales DO PCP - General Internal Medicine 05/05/15 documented as of this encounter
--- OUTSIDE RECORDS SUMMARY | 2025-07-22 09:43 | XMS_ITS | Encounter Summary ---
Author Organization [facility] Address [address] [place] [address] Care Team Providers Care Production Planner Scheduler Name Role Phone Rhonda Perales DO Primary Care Pro vider Unavailable Encounter Details Date Type Department Care Team Description 07/22/2019 Orders Only Adult Medicine [address] [address] Rhonda Perales DO Social History Tobacco Use [...] on filedocumented in this encounter Care Teams Production Planner Scheduler Relationship Specialty Start Date End Date Rhonda Perales DO PCP - General Internal Medicine 05/05/15 documented as of this encounter
--- OUTSIDE RECORDS SUMMARY | 2025-07-22 09:43 | XMS_ITS | Encounter Summary ---
[facility] Organization [facility] Address [address] [place] [address] Care Team Providers Care V Belt Curer Name Role Phone Jose Erazo MD Primary Care Provider Noemi vailable Meliton Christiansen MD Primary Care Provider Unavail able Shawn Aldridge MD Primary Care Provider [phone] Rhonda Perales DO Primary Care Pro vider Unavailable Encounter Details Date Type Department Care Team Description 04/30/2013 Release of Information Medical Records [address] [place] [address] Abstract, Provider Social History Tobacco Use Types [...] on filedocumented in this encounter Care Teams V Belt Curer Relationship Specialty Start Date End Date Jose Erazo MD PCP - General 06/30/09 10/26/14 Meliton Christiansen MD PCP - General Internal Medicine 11/07/14 04/11/15 Shawn Aldridge MD [address] [place], [place] [id number] PCP - General Internal Medicine 04/12/15 05/04/15 Rhonda Perales DO [address] [place] [address] PCP - General Internal Medicine 05/05/15 documented as of this encounter
--- OUTSIDE RECORDS SUMMARY | 2025-07-22 09:43 | XMS_ITS | Encounter Summary ---
Author Organization [facility] Address [address] [place] [address] Care Team Providers Care Directional Survey Drafter Name Role Phone Rhonda Perales DO Primary Care Pro vider Unavailable Encounter Details Date Type Department Care Team Description 07/21/2019 [facility] Medical Records [address] [place] [address] Abstract, Provider Social History Tobacco Use Types [...] on filedocumented in this encounter Care Teams Directional Survey Drafter Relationship Specialty Start Date End Date Rhonda Perales DO PCP - General Internal Medicine 05/05/15 documented as of this encounter
--- OUTSIDE RECORDS SUMMARY | 2025-07-22 09:43 | XMS_ITS | Encounter Summary ---
[facility] Organization [facility] Address [address] [place] [address] Care Team Providers Care Couples Therapist Name Role Phone Rhonda Perales DO Primary Care Pro vider Unavailable Encounter Details Date Type Department Care Team Description 11/29/2019 Sales Representative Printing Supplies Report Medical Records [address] [place] [id number] [place] [address] Social History Tobacco Use Types Packs/Day Years [...] on filedocumented in this encounter Care Teams Couples Therapist Relationship Specialty Start Date End Date Rhonda Perales DO PCP - General Internal Medicine 05/05/15 documented as of this encounter
--- OUTSIDE RECORDS SUMMARY | 2025-07-22 09:43 | XMS_ITS | Encounter Summary ---
Author Organization [facility] Address [address] [place] [address] Care Team Providers Care Product Marketing Manager Name Role Phone Rhonda Perales DO Primary Care Pro vider Unavailable Reason for Visit * Reason Onset Date Comments medication problems 02/18/2020 Encounter Details Date Type Department Care Team Description 02/18/2020 Telephone Adult Medicine [address] [id number] Rhonda Perales DO medication problems Social History Tobacco Use Types Packs/Day Years [...] encounter Miscellaneous Notes * Telephone Encounter - Kitty Gaines M.A. - 02/21/2020 12:56 PM EDT Per [facility] in Pulmo this Patient no show for his first consult with on 02/04/20. He was Cooperpatient and he have to be stablished it before with any pulmo here , before any change of medication or any medication for pulmonology. * Telephone Encounter - Rhonda Mota DO - 02/20/2020 10:07 AM EDT I would need to know what alternative her insurance covers or message can be sent to pulmonology who she does follow with regularly * Telephone Encounter - Opal Burton M.A. - 02/18/2020 1:57 PM EDT Pharmacy looking for alternative * Telephone Encounter - Johnson Tracey - 02/18/2020 10:04 AM EDT What is the name of the medication patient is having a problem with?: FLOVENT HFA 110 MCG/ACT inhaler What is the problem?: on back order, please send alternative Is the patient calling about the problem? NO If the patient is not the caller who is? Faxed from [facility] Is this a NEW medication?: NO How long has the patient been taking this medication? Who prescribed this medication for the patient? Rhonda Canales Who is patients PCP?: Rohnda Canales Payor: [facility] M[facility] / Plan: [facility] / Product Type: HMO [id number] documented in this encounter Plan of Treatment Not on file documented as of this encounter Visit Diagnoses Not on filedocumented in this encounter Care Teams Product Marketing Manager Relationship Specialty Start Date End Date Rhonda Perales DO PCP - General Internal Medicine 05/05/15 documented as of this encounter
--- OUTSIDE RECORDS SUMMARY | 2025-07-22 09:43 | XMS_ITS | Encounter Summary ---
Author Organization [facility] Address [address] [place] [address] Care Team Providers Care Glove Machine Operator Name Role Phone Rhonda Perales DO Primary Care Pro vider Unavailable Encounter Details Date Type Department Care Team Description 10/03/2017 Experimental Welder Report Medical Records [address] [place] [address] Mikel Amato MD Social History Tobacco Use [...] on filedocumented in this encounter Care Teams Glove Machine Operator Relationship Specialty Start Date End Date Rhonda Perales DO PCP - General Internal Medicine 05/05/15 documented as of this encounter
--- OUTSIDE RECORDS SUMMARY | 2025-07-22 09:43 | XMS_ITS | Encounter Summary ---
Author Organization [facility] Address [address] [place] [address] Care Team Providers Care High Climber Name Role Phone Meliton Christiansen MD Primary Care Provider Unavail able Shawn Aldridge MD Primary Care Provider [phone] Rhonda Perales DO Primary Care Pro vider Unavailable Encounter Details Date Type Department Care Team Description 11/12/2014 [facility] Medical Records [address] [place] [address] Mikel Amato MD Social History Tobacco Use [...] on filedocumented in this encounter Care Teams High Climber Relationship Specialty Start Date End Date Meliton Christiansen MD PCP - General Internal Medicine 11/07/14 04/11/15 Shawn Aldridge MD [address] [place], [place] [phone] PCP - General Internal Medicine 04/12/15 05/04/15 Rhonda Perales DO [address] [place] [address] PCP - General Internal Medicine 05/05/15 documented as of this encounter
--- OUTSIDE RECORDS SUMMARY | 2025-07-22 09:43 | XMS_ITS | Encounter Summary ---
Author Organization [facility] Address [address] [place] [address] Care Team Providers Care Tie Up Worker Name Role Phone Rhonda Perales DO Primary Care Pro vider Unavailable Encounter Details Date Type Department Care Team Description 08/25/2019 Healthcare Account Manager Report Medical Records [address] [place] [address] Kira Ellis NP Social History Tobacco Use Types Packs/Day Years [...] on filedocumented in this encounter Care Teams Tie Up Worker Relationship Specialty Start Date End Date Rhonda Perales DO PCP - General Internal Medicine 05/05/15 documented as of this encounter
--- OUTSIDE RECORDS SUMMARY | 2025-07-22 09:43 | XMS_ITS | Encounter Summary ---
Author Organization [facility] Address [address] [place] [address] Care Team Providers Care Certified Emergency Vehicle Technician Name Role Phone Jose Erazo MD Primary Care Provider Noemi vailaMeliton Ramirez MD Primary Care Provider Unavail able Shawn Aldridge MD Primary Care Provider Rhonda Perales DO Primary Care Pro vider Unavailable Encounter Details Date Type Department Care Team Description 02/19/2014 [facility] Medical Records [address] [place] [address] Mikel Amato MD Social History Tobacco Use [...] on filedocumented in this encounter Care Teams Certified Emergency Vehicle Technician Relationship Specialty Start Date End Date Jose Erazo MD PCP - General 06/30/09 10/26/14 Meliton Christiansen MD PCP - General Internal Medicine 11/07/14 04/11/15 Shawn Aldridge MD [address] [place] [address] PCP - General Internal Medicine 04/12/15 05/04/15 Rhonda Perales DO [address] [place] [address] PCP - General Internal Medicine 05/05/15 documented as of this encounter
--- OUTSIDE RECORDS SUMMARY | 2025-07-22 09:43 | XMS_ITS | Encounter Summary ---
Author Organization [facility] Address [address] [place] [address] Care Team Providers Care Forging Machine Hand Name Role Phone Jose Erazo MD Primary Care Provider Noemi vailable Meliton Christiansen MD Primary Care Provider Unavail able Shawn Aldridge MD Primary Care Provider [phone] Rhonda Perales DO Primary Care Pro vider Unavailable Encounter Details Date Type Department Care Team Description 05/18/2010 Business Doc Medical Records [address] [place] [address] Abstract, Provider Social History Tobacco Use Types [...] on filedocumented in this encounter Care Teams Forging Machine Hand Relationship Specialty Start Date End Date Jose Erazo MD PCP - General 06/30/09 10/26/14 Meliton Christiansen MD PCP - General Internal Medicine 11/07/14 04/11/15 Shawn Aldridge MD [address] [place], [place] [phone] PCP - General Internal Medicine 04/12/15 05/04/15 Rhonda Perales DO [address] [place] [address] PCP - General Internal Medicine 05/05/15 documented as of this encounter
--- OUTSIDE RECORDS SUMMARY | 2025-07-22 09:43 | XMS_ITS | Encounter Summary ---
Author Organization [facility] Address [address] [place] [address] Care Team Providers Care Human Factors Scientist Name Role Phone Jose Erazo MD Primary Care Provider Noemi Meliton Sanchez MD Primary Care Provider Unavail able Shawn Aldridge MD Primary Care Provider [phone] Rhonda Perales DO Primary Care Pro vider Unavailable Reason for Visit * Reason Onset Date Comments Call-returning From Provider 04/06/2013 Encounter Details Date Type Department Care Team Description 04/06/2013 Telephone Adult Medicine [address] [address] Jose Erazo MD Call-returning From Provider Social [...] filedocumented in this encounter Care Teams Human Factors Scientist Relationship Specialty Start Date End Date Jose Erazo MD PCP - General 06/30/09 10/26/14 Meliton Christiansen MD PCP - General Internal Medicine 11/07/14 04/11/15 Shawn Aldridge MD [address] [place] [address] PCP - General Internal Medicine 04/12/15 05/04/15 Rhonda Perales DO [address] [place] [address] PCP - General Internal Medicine 05/05/15 documented as of this encounter
--- OUTSIDE RECORDS SUMMARY | 2025-07-22 09:43 | XMS_ITS | Encounter Summary ---
Author Organization [facility] Address [address] [place] [address] Care Team Providers Care Exploration Driller Name Role Phone Rhonda Perales DO Primary Care Pro vider Unavailable Reason for Visit * Reason Comments E-prescribe Rx Request Encounter Details Date Type Department Care Team Description 02/17/2020 Refill Adult Medicine [address] [address] Rhonda Perales DO E-prescribe Rx Request Social [...] N/A Patients current insurance carrier is: Payor: [employer] MCR / Plan: [facility] / Product Type: HMO [id number] documented in this encounter Plan of Treatment Not on file documented as of this encounter Visit Diagnoses Not on filedocumented in this encounter Care Teams Exploration Driller Relationship Specialty Start Date End Date Rhonda Perales DO PCP - General Internal Medicine 05/05/15 documented as of this encounter
--- OUTSIDE RECORDS SUMMARY | 2025-07-22 09:43 | XMS_ITS | Encounter Summary ---
[facility] Address [address] [place] [address] Care Team Providers Care Wound Nurse Name Role Phone Jose Erazo MD Primary Care Provider Noemi vailable Meliton Christiansen MD Primary Care Provider Unavail able Shawn Aldridge MD Primary Care Provider [phone] Rhonda Perales DO Primary Care Pro vider Unavailable Encounter Details Date Type Department Care Team Description 05/22/2012 Business Doc Medical Records [address] [place] [address] Abstract, Provider Social History Tobacco Use Types [...] on filedocumented in this encounter Care Teams Wound Nurse Relationship Specialty Start Date End Date Jose Erazo MD PCP - General 06/30/09 10/26/14 Meliton Christiansen MD PCP - General Internal Medicine 11/07/14 04/11/15 Shawn Aldridge MD [address] [place], [place] [phone] PCP - General Internal Medicine 04/12/15 05/04/15 Rhonda Perales DO [address] [place] [address] PCP - General Internal Medicine 05/05/15 documented as of this encounter
--- OUTSIDE RECORDS SUMMARY | 2025-07-22 09:43 | XMS_ITS | Encounter Summary ---
Author Organization [facility] Address [address] [place] [address] Care Team Providers Care Deployment Technician Name Role Phone Rhonda Perales DO Primary Care Pro vider Unavailable Encounter Details Date Type Department Care Team Description 02/19/2017 Administrative Law Judge Report Medical Records [address] [place] [address] Cayetano Newton MD Social History Tobacco Use [...] on filedocumented in this encounter Care Teams Deployment Technician Relationship Specialty Start Date End Date Rhonda Perales DO PCP - General Internal Medicine 05/05/15 documented as of this encounter
--- OUTSIDE RECORDS SUMMARY | 2025-07-22 09:43 | XMS_ITS | Encounter Summary ---
Author Organization [facility] Address [address] [place] [address] Care Team Providers Care Lead Process Engineer Name Role Phone Meliton Christiansen MD Primary Care Provider Unavail able Shawn Aldridge MD Primary Care Provider [phone] Rhonda Perales DO Primary Care Pro vider Unavailable Encounter Details Date Type Department Care Team Description 11/11/2014 Hospital Medical Records [address] [place] [address] Dalila Scott Social History Tobacco Use Types [...] on filedocumented in this encounter Care Teams Lead Process Engineer Relationship Specialty Start Date End Date Meliton Christiansen MD PCP - General Internal Medicine 11/07/14 04/11/15 Shawn Aldridge MD [address] [place] [address] PCP - General Internal Medicine 04/12/15 05/04/15 Rhonda Perales DO [address] [place] [address] PCP - General Internal Medicine 05/05/15 documented as of this encounter
--- OUTSIDE RECORDS SUMMARY | 2025-07-22 09:43 | XMS_ITS | Encounter Summary ---
Author Organization [facility] Address [address] [place] [address] Care Team Providers Care Produce Associate Name Role Phone Rhonda Perales DO Primary Care Pro vider Unavailable Encounter Details Date Type Department Care Team Description 12/21/2019 Herbologist Report Medical Records [address] [place] [address] Abstract, Provider Social History Tobacco Use Types [...] on filedocumented in this encounter Care Teams Produce Associate Relationship Specialty Start Date End Date Rhonda Perales DO PCP - General Internal Medicine 05/05/15 documented as of this encounter
--- OUTSIDE RECORDS SUMMARY | 2025-07-22 09:43 | XMS_ITS | Encounter Summary ---
Author Organization [facility] Address [address] [place] [address] Care Team Providers Care Sales Agent Trading Stamps Name Role Phone Rhonda Perales DO Primary Care Pro vider Unavailable Reason for Referral * (Routine) - Canceled Specialty Diagnoses / Procedures Referred By Diana obregon Referred To Contact ORTHOPEDICS / Orthopedic Procedures REFERRAL TO ORTHOPEDICS (IN NETWORK) Rhonda Perales DO [address] [place] [address] External Orthopedics Referral ID Status Reason Start Date Expiration Date V isits Requested Visits Authorized SEE REVIEW 06/02/19 Canceled 06/02/2019 1 1 Encounter Details Date Type Department Care Team Description 06/02/2019 Orders Only Adult Medicine [address] [address] Rhonda Perales DO Social History Tobacco Use [...] filedocumented in this encounter Care Teams Sales Agent Trading Stamps Relationship Specialty Start Date End Date Rhonda Perales DO PCP - General Internal Medicine 05/05/15 documented as of this encounter
--- OUTSIDE RECORDS SUMMARY | 2025-07-22 09:44 | XMS_ITS | Clinical Summary ---
Author Organization [facility] Address [address] [place] [address] Care Team Providers Care Market Editor Name Role Phone Rhonda Perales DO Primary [...] 04/26/2015 Psychiatric disturbance 07/30/2013 Overview: Dr. Wells [facility] 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 Consider upper endoscopy 2017. History of back surgery 05/17/2010 Overview: Dr. Amato 11/14/09-has spinal fusion L3-L5 w/Titanium plates, f/u with Dr. Amato for pain management Depression with anxiety/ Dr. Wells [facility] Psych 08/15/2008 Overview: ? Mood disorder; poss biopolar ADD (attention deficit disorder) 008 Overview: If you or your child's teachers are noticing that Juanita is demonstrating any of the following behaviors on a frequent basis, please share this with her doctor not paying attention daydreaming a lot not being able to fall asleep easily not listening being easily distracted form schoolwork or play forgetting things in constant motion, can't sit still squirming or fidgeting talking too much not being able to play quietly acting and speaking without thinking unable to wait for her turn interrupting others Juanita's Care Goals In order to best manage your child's ADHD it is important to have clear care goals. These goals include: working with the school/teachers, other family members and adults who see the child regularly (coaches, music instructors, etc) to help manage the symptoms of ADHD taking medication as directed by your child's doctor meeting with a therapist regularly if this [...] Educational Resources Center for Disease Control (www.cdc.gov/ncbddd/adhd/) [place] [employer] Pediatrics (www.aap.org/healthtopics/adhd.cfm) National Resource Center for ADHD (www.ebmm2yrhl.org) Children and Adults with Attention Deficit Hyperactivity Disorder (www.luigi.org) [place] Child [facility] Access Project (www.[facility].[employer]) This care plan was created in collaboration with Juanita Sun on 10/28/2011 Sciatica Resolved Problems Problem Noted Date Resolved Date Asthma, persistent not controlled 12/16/2017 08/05/2019 Odynophagia x 4 months, + weight loss 11/17/2012 04/26/2015 Overview: EGD and bx 02/22/2013: Squamous papilloma of the upper esophagus, NSAID related gastritis and duodenitis. Hyponatremia/ ? 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
--- OUTSIDE RECORDS SUMMARY | 2025-07-22 09:44 | XMS_ITS | Encounter Summary ---
Author Organization [facility] Address [address] [place] [address] Care Team Providers Care Metal Bumper Name Role Phone Jose Erazo MD Primary Care Provider Noemi vailable Meliton Christiansen MD Primary Care Provider Unavail able Shawn Aldridge MD Primary Care Provider [phone] Rhonda Perales DO Primary Care Pro vider Unavailable Encounter Details Date Type Department Care Team Description 01/01/2013 Business Doc Medical Records [address] [place] [address] Abstract, Provider Social History Tobacco Use Types [...] on filedocumented in this encounter Care Teams Metal Bumper Relationship Specialty Start Date End Date Jose Erazo MD PCP - General 06/30/09 10/26/14 Meliton Christiansen MD PCP - General Internal Medicine 11/07/14 04/11/15 Shawn Aldridge MD [address] [place], [place] [address] PCP - General Internal Medicine 04/12/15 05/04/15 Rhonda Perales DO [address] [place] [address] PCP - General Internal Medicine 05/05/15 documented as of this encounter
--- OUTSIDE RECORDS SUMMARY | 2025-07-22 09:44 | XMS_ITS | Encounter Summary ---
Author Organization [facility] Address [address] [place] [address] Care Team Providers Care Biology Instructor Name Role Phone Rhonda Perales DO Primary Care Pro vider Unavailable Reason for Visit * Reason Onset Date Comments TEST RESULTS 05/17/2019 Encounter Details Date Type Department Care Team Description 05/17/2019 Telephone Adult Medicine [address] [phone] Rhonda Perales DO TEST RESULTS Social History [...] testing done . Wants a referral to [facility] , the doctor has a name that starts with a K She will try to find the name in her records Since dr Amato hasretired * Telephone Encounter - Lashay Cotton - 05/19/2019 8:39 AM EDT Pt returning call needs to discuss why she is referred to [facility], and one of her results she doesn'tunderstand * Telephone Encounter - Dixie Carter R.N. - 05/19/2019 8:21 AM EDT Message left for pt and advised her to review my chart messages and call if she has any questions or concerns * Telephone Encounter - Rhonda Mota DO - 05/19/2019 6:03 AM EDT Results released in [facility]. Will refer patient as she chooses * [...] on filedocumented in this encounter Care Teams Biology Instructor Relationship Specialty Start Date End Date Rhonda Perales DO PCP - General Internal Medicine 05/05/15 documented as of this encounter
--- OUTSIDE RECORDS SUMMARY | 2025-07-22 09:44 | XMS_ITS | Encounter Summary ---
Author Organization [facility] Address [address] [place] [address] Care Team Providers Care Clod Puller Name Role Phone Rhonda Perales DO Primary Care Pro vider Unavailable Encounter Details Date Type Department Care Team Description 04/17/2020 Access Clinician Report Medical Records [address] [place] [id number] [place] [address] Social History Tobacco Use Types Packs/Day Years [...] on filedocumented in this encounter Care Teams Clod Puller Relationship Specialty Start Date End Date Rhonda Perales DO PCP - General Internal Medicine 05/05/15 documented as of this encounter
--- OUTSIDE RECORDS SUMMARY | 2025-07-22 09:44 | XMS_ITS | Encounter Summary ---
Author Organization [facility] Address [address] [place] [address] Care Team Providers Care Farm Implement Mechanic Name Role Phone Rhonda Perales DO Primary Care Pro vider Unavailable Encounter Details Date Type Department Care Team Description 04/03/2017 Business Doc Medical Records [address] [place] [address] Abstract, Provider Social History Tobacco Use Types [...] filedocumented in this encounter Care Teams Farm Implement Mechanic Relationship Specialty Start Date End Date Rhonda Perales DO PCP - General Internal Medicine 05/05/15 documented as of this encounter
[2025-07-22 10:29] LABS: Hematocrit 37.5 % (37.0-47.0); Hemoglobin 13.4 g/dl (12.0-16.0); Mean Corpuscular HGB Conc 35.7 g/dl (31.0-35.0); Mean Corpuscular Hemoglobin 30.2 pg (27.0-33.0); Mean Corpuscular Volume 84.7 fL (80.0-98.0); NRBC Abs Auto 0.000 X10*3/uL (0.0-0.012); NRBC Pct Auto 0.0 /100WBC (0.0-0.2); Platelet Count 180 X10*3/uL (160-400); Red Blood Count 4.43 X10*6/uL (4.20-5.50); White Blood Count 6.5 X10*3/uL (4.8-10.8)
[2025-07-22 11:12] LABS: Alanine Aminotransferase 19 U/L (0-31); Albumin Level 4.4 g/dL (3.5-5.0); Alkaline Phosphatase 65 U/L (39-117); Anion Gap 10 (12-20); Aspartate Amino Transferase 21 U/L (5-31); Blood Urea Nitrogen 12 mg/dL (9-16); Calcium 9.0 mg/dL (8.4-10.2); Carbon Dioxide 29 mmol/L (22-29); Chloride 97 mmol/L (96-108); Estimated Glomerular Filt Rate > 60; Potassium 4.5 mmol/L (3.3-5.1); Sodium 131 mmol/L (135-145); Total Protein 7.0 g/dL (6.5-8.0)
[2025-07-23 07:09] LABS: Follicle Stimulating Hormone 77.4 mIU/mL
== END 2025-07-22 09:05 | disposition home or self-care (01) ==
LOC: HO.10HDL 09:04
PROVIDERS: Visit Provider Physician Assistant
DX: I10 Essential (primary) hypertension (principal); N95.9 Unspecified menopausal and perimenopausal disorder
CPT/HCPCS: 36415; 80053; 83001; 85027

== ENCOUNTER 2025-09-02 09:23 | Outpatient (AMB) | payer OTHER, SELFPAY ==
--- NOTE | 2025-09-02 09:34 | A.OFFVIS_ITS ---
Vital Signs 09/02/25 09:43 Height 5 ft 5 in Weight 187 lb 2 oz BMI 31.1 BP 129/96 H Blood Pressure Location Lt brachial Position Sitting Pulse 80 Pulse Source Pulse Oximeter Pulse Oximetry (%) 97 Oxygen Delivery Method Room Air Intake Visit Reasons: Follow Up Pt. 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 The neck pain has been persistent and radiates to both arms, with the right arm being more affected recently. The patient has a history of cervical spinal stenosis and neuroforaminal stenosis at C3-C4, which has been associated with her symptoms. The patient reports frequent falls, occurring as often as 3-4 times a week, with episodes of dizziness and balance issues. These episodes sometimes result in her hitting her head, although no concussion was diagnosed during a recent emergency room visit. She was seen by Neurology and was recommended PT for balance and gait issues and follow up with us for cervical spondylosis. Per Neurology, there is no evidence of cerebellar ataxia. Patient declined interventional treatments and requested referral to Neurosurgery. She has undergone two neck surgeries in the past, with the second surgery involving the placement of a wire in her neck. The patient has not engaged in physical therapy recently and is awaiting further evaluation by a Neurosurgeon. Denies any recent cough, cold, infection, fever or any other significant changes in medical history since last office visit. PRIOR: The patient is a 49-year-old female presenting with neck pain to discuss cervical spine MRI results and recent falls. She has a history of neck pain for several years and underwent cervical fusion at C4-C6 approximately 11 years ago. Previous imaging showed moderate to severe disc degeneration and stenosis, with the latest MRI indicating no cord compression or edema but narrowing at C3-C4 on the left side. The patient reported multiple falls, including slipping and hitting her head on a hardwood floor, which have occurred four times recently. She did not seek immediate medical attention following these incidents. She experiences vertigo, confusion, and nausea, which have been more pronounced since the falls. She also has a history of hyponatremia, with a sodium level of 128 mEq/L. 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 - Onset: Neck pain for several years, exacerbated by recent multiple falls. - Quality: Persistent and severe, with associated vertigo and confusion. - Location: Primarily in the neck, with radiation to the left side. - Exacerbating factors: Falls and head trauma, movements, range of motion - Relieving factors: Rest, muscle relaxants, heat - Affect: Pain impacts mood and causes confusion. - Analgesia: Tizanidine; interventional procedures discussed. - Adverse Effects: None from medications, but symptoms include vertigo and nausea. - Activities of Daily Living: Falls and confusion affect daily functioning. - Aberrant Drug Related Behaviors: None reported. PRIOR: The patient is a 49-year-old female presenting with severe neck pain associated with radicular symptoms. She was last seen in our office for neck pain in 2021. Her medical history is significant for cervical fusion at C4-C6 performed in 2013 followed by wire insertion in 2014. Most recent imaging showed moderate to severe disc degeneration above and below the fusion and mild arthritis. After a fall incident in September where she tripped and hit her head, her neck pain and stiffness have worsened, particularly affecting the left side. She describes a gripping sensation in the neck with radiation into the collarbone, exacerbated by previous Soma use, which she discontinued. Her pain levels reportedly reach 8-9/10, leading to an increase in blood pressure. The patient continues to experience symptoms from small fiber neuropathy, including numbness and tingling in her extremities. Her anxiety is managed with clonazepam, but she denies additional medication or significant hypertension management. 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 Patient is not interested in interventional treatment or chronic opioid therapy, but reports interest to trial an increase in tizanidine dose as this has been partially effective. - Onset and Timing: Symptoms exacerbated following a fall in September. Chronic neck pain first addressed in 2013 with cervical fusion. - Quality and Character: Describes pain as severe, radiating, and similar to a feeling of a hook pulling in the neck. - Primary Location: Left side of the neck, involving the collarbone. - Areas of Radiation: Into the left shoulder and possibly other areas of the neck. - Exacerbating Factors: Activity, such as attempting daily tasks, potential previous use of Soma. - Alleviating Factors: Muscle relaxants, though current regimen is insufficient. - Interference: Pain impacts basic activities such as showering and braiding hair; associated with blood pressure increases. - Affect: Anxiety and psychological distress related to pain intensity. - Analgesia: Currently using tizanidine 4 mg three times daily. Considering increasing dose. - Adverse Effects: Concerns about tizanidine affecting blood pressure, previous issues with Soma. - Activities of Daily Living: Difficulty performing tasks such as showering, personal care. - Aberrant Drug Related Behaviors: No evidence of abuse but previous use of Soma noted for pain management. PRIOR 04/15/22: Patient is a pleasant 46 years old female who presents today for follow up for chronic neck pain with history of osteoarthrtis and ACDF C4-5, C5-6 in 2014. She was previously seen in this office by Dr. Tillman in 2019. Patient reports worsening of neck pain due to sleeping position in which she twisted her neck to her right while sleeping in prone position. Patient presented with limited cervical ROM in all planes with significant exacerbation of pain with extension. Reports occasional numbness and tingling in both of her hands. She was seen by PCP and cervical plain films were obtained in January and show postsurgical changes status post fusion C4-C6 with intact hardware. No destructive process or osteolysis. Anterior vertebral spurring C3-C4 and C6-C7. Patient states she titrated herself off Soma last year but had to restart it due to severe muscle spasms and tenderness in her cervical and lumbar regions. She currently is taking 350 mg BID and has been asking it this can be titrated to TID. She reports ineffectiveness with baclofen and tizanidine in the past. Patient reports she has done PT in the past and currently is unable to participate in PT due to pain. However, she reports she has been performing daily HEP to maintain cervical ROM and decrease neck stiffness. Patient has also been applying ice/heat therapy with peppermint moisturizes and taking daily Ibuprofen, with partial relief. She denies any fever, chills, malaise, weight loss, chest pain, dyspnea, headaches, bladder/bowel dysfunction or saddle anesthesia. She reports intermittent weakness of her upper extremities. Patient reports she sees psychologist every 2 months for mood disorder. 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 Patient is not interested in interventional treatment options for her cervical arthritic pain at this time. She is interested in TENS unit and was able to read information of [employer] without difficulty as well follow and maintaining direct eye contact during today's encounter. PRIOR 10/05/2020 Dr. Tillman: Juanita presents today for the telephone follow-up . she was under care in this office for long period of time received several sacroiliac joint injections which were more less helpful for her pain. However the injection which was performed on 08/15/2020 was not helpful for her pain. Today she started to describe her pain she actually used common language term to describe her vagina and she said that the pain is between the legs and vagina. This is not sacroiliac joint discomfort. Due to communication difficulties with this patient - she is partially deaf and sometimes fails to were his hearing aid - this was not discovered on the previous visit. She went for CT scan of her pelvis and her sacroiliac joints are completely normal on the CT scan. Therefore it is not the pain generator. I am not sure on which indications she was receiving sacroiliac joints prior to me but obviously now sacroiliac joint injections are no further indicated for this patient. I will refer this patient to OBGYN to evaluate her pain. I also recommend her to take a careful look into activities of daily living what pain is being caused of what maneuvers. She is also scheduled to go for CT scan for evaluation of the bones of the pelvis. Prior: She has a history of lumbar fusion L3-4, L4-5, and L5-S1 in 2010. She also has had an ACDF C4-5, C5-6 in 2014. These were all done by Dr. Amato. She feels that both of thes e surgeries did help her original symptoms. She has continued pain however in her lower back and buttocks with radiation down the front of her legs R>L. She also reports burning and shooting pain that comes from her feet upwards. She is not a diabetic. She has not had an EMG/NCV. Juanita reports that no one is helping her . She was on Soma for many years and was taken off of this about a year ago. She reports her life has been a disaster since coming off of Soma. She would ideally like to go back onto it. She has instead been using Baclofen, which is somewhat helpful however she is almost out of medication. She apparently cannot take NSAIDs, Tylenol, Lyrica, or Gabapentin due to side effects. Report of this was vague. Juanita had a consult with Dr. Vega with no new findings that would require surgery. Her lumbar spine MRI revealed surgical changes s/p anterior fusion from L3-4 to L5-S1. No residual or recurrent disc herniation. Multilevel facet hypertrophy. Cervical MRI indicated ACDF C4-5, C5-6, with small right paracentral disc bulge at C6-7. No significant stenosis, disc herniations, no cord compression or signal changes. PFSH Medical History Frequent falls Polyneuropathy Smoker Chronic back pain [place] (hard of hearing) Asthma Depression PONV (postoperative nausea and vomiting) Metatarsus abductus Anxiety Usher syndrome Legally blind Hyponatremia Vaginal pain Cervical (neck) region somatic dysfunction Osteoarthritis of right knee Postlaminectomy syndrome Surgical History S/P tooth extraction Hx of colonoscopy History of back surgery History of fusion of cervical spine History of lumbar fusion History of hysterectomy Family History Father CAD (coronary artery disease) COPD (chronic obstructive pulmonary disease) Social History Housing: Apartment Alcohol intake: never Patient Tobacco Use Status: Current everyday Tobacco user Tobacco use type: Cigarette Cigarette Packs Per Day: 1.5 Cigarettes Per Day: 30 Years Smoked: 34 e-Cigarette/Vaping Use: Currently Using Second Hand Smoke Exposure: Yes Substance Use Type: Marijuana service: No Current occupational status: disabled Current occupational exposures/hazards: No Sexual orientation: Straight/Heterosexual Gender identity: Female Cognitive needs: Yes (cane) Hearing needs: No Vision needs: Yes Review of Systems Const Details: - Neurological: Reports dizziness, balance issues, and recurrent falls. Denies headaches. - Musculoskeletal: Reports neck pain radiating to both arms, more severe on the right. All systems reviewed & are unremarkable except as noted in HPI and below Physical Exam Vital Signs: Last Vital Signs Pulse 80 09/02/25 09:43 BP 129/96 H 09/02/25 09:43 Pulse Ox 97 09/02/25 09:43 Oxygen Delivery Method Room Air 09/02/25 09:43 BMI result Body Mass Index 31.1 General: Appears afebrile. Alert and oriented. Mood and affect appropriate. Follows and participates in conversation appropriately. Respiratory effort is unlabored. No cough. Able to transition from sit to stand unassisted. Uses cane with walking. Ambulates with bilaterally normal heel strike and toe off. HEENT Head: Yes normal to inspection, Yes No palpable skull fracture present, Yes normocephalic, Yes atraumatic, No Acrocyanosis present, No occipital foramen tenderness, No raccoon eyes, Yes scalp tenderness and No periorbital ecchymosis Eyes General: appearance normal, both eyes and all related structures Neck Other: Patient with decreased cervical ROM in all planes, especially with bilateral lateral rotation. Reports increased pain with cervical extension. Pain is unchanged by Spurling maneuver with retraction. Elvey's tension test is positive on the right, with pain radiation to elbow and right hand with reports of numbness and tingling in both hands. Lhermitte's test was negative. DTR intact, +1 and symmetrical. Patient demonstrated 5/5 motor strength of bilateral upper extremities. 2 + radial pulses. Mild tightness and TTP throughtout bilateral upper trapezius and rhomboid muscles. No paravertebral tenderness over facet joints bilaterally. Neck: Yes normal visual inspection, Yes no lymphadenopathy, Yes supple, No anterior neck swelling, Yes no JVD, No prominent supraclavicular fat pad and Yes prominent dorsocervical fat pad Back/Spine/Pelvis Cervical Spine: No Lhermitte's sign positive, loss of normal cervical lordosis, cervical muscular tenderness, pain with cervical ROM, Cervical spine scars present, cervical spasm and No Cervical spine tenderness Thoracic/Lumbar Spine: thoracic and lumbar spine normal to inspection, pain with thoraco-lumbar ROM, No thoracic spinal tenderness and lumbar spinal tenderness at L4 and at L5 Results Reviewed Results Reviewed: MR CERVICAL SPINE WITHOUT CONTRAST 04/07/25 CLINICAL INFORMATION: Post laminectomy syndrome. COMPARISON: None available. TECHNIQUE: MRI of the cervical spine was obtained using routine sequences without contrast. FINDINGS: Paramagnetic field distortion secondary to anterior metallic plate C4 C6 and posterior elements at C4. There is a subtle bone marrow STIR signal involving vertebral body of C3. Craniocervical junction is intact with normal alignment. There is a reverse curvature apex at C3-4. Grade 1 retrolisthesis C3-4. Cervical spinal cord caliber and signal are normal. C2-3: No disc herniation. No neuroforamina stenosis.. C3-4: Broad-based disc osteophyte complex formation. No cord compression. Left neuroforamina and narrowing on a degenerative basis. C4-5: Postsurgical changes. No cord compression. No neuroforamina stenosis. C5-6: Right-sided disc osteophyte complex formation resulting in ventral indentation to the thecal sac. No cord compression. No neuroforamina stenosis. C6-7: Broad-based disc osteophyte complex formation. No cord compression. No neuroforamina stenosis. C7-T1: No cord compression. No neuroforamina stenosis T1-2: No cord compression. No gross neuroforamina stenosis. No prevertebral compartment hematoma, mass or fluid collection. Flow-void signal within the main vessels is normal. Left vertebral artery is dominant. 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 IMPRESSION: No cord compression, cord edema and or myelopathy. Left neuroforamina and stenosis C3-4 on a degenerative basis. Assessment & Plan Assessment & Plan (1) Postlaminectomy syndrome: Code(s): M96.1 - Postlaminectomy syndrome, not elsewhere classified Category: Medical (2) Cervical (neck) region somatic dysfunction: Code(s): M99.01 - Segmental and somatic dysfunction of cervical region Category: Medical (3) Cervical spondylosis: Code(s): M47.812 - Spondylosis without myelopathy or radiculopathy, cervical region Category: Medical (4) Radiculopathy of cervical spine: Code(s): M54.12 - Radiculopathy, cervical region Category: Medical (5) Cervical spinal stenosis: Code(s): M48.02 - Spinal stenosis, cervical region Category: Medical (6) Impairment of balance: Code(s): R26.89 - Other abnormalities of gait and mobility Category: Medical (7) Frequent falls: Comment: multifactorial - spondylosis , ? spinals tenosis , medications etc Code(s): R29.6 - Repeated falls Category: Medical Plan The plan includes a referral to a Neurosurgeon for further evaluation of the cervical spinal stenosis and associated symptoms. We reviewed interventional treatments for cervical spondylosis, patient declined injections at this time. The patient is advised to continue with tizanidine 2 or 4 mg but to avoid increasing the dose to 6 mg due to the risk of falls. She reports muscle stiffness and spasms relief with tizanidine without side effects and with good tolerance. In case of any further falls, head injuries, or worsening symptoms, the patient is instructed to seek immediate medical attention at the emergency room. All questions and concerns have been answered and patient agreed with the treatment plan. Follow up as needed. Patient was informed and verbally consented to the use of an ambient scribe for clinic note documentation during this visit. Orders: Orders PT Evaluation and Treatment Today R26.89 - Other abnormalities of gait and mobility, R29.6 - Repeated falls Referrals Neuro Spine Referral M47.812 - Spondylosis without myelopathy or radiculopathy, cervical region, M48.02 - Spinal stenosis, cervical region, M54.12 - Radiculopathy, cervical region, M96.1 - Postlaminectomy syndrome, not elsewhere classified, M99.01 - Segmental and somatic dysfunction of cervical region Medications: Refilled tizanidine 4 mg PO TID PRN 90 tabs 0RF muscle spasticity 30 days M47.812 - Spondylosis without myelopathy or radiculopathy, cervical region, M53.82 - Other specified dorsopathies, cervical region, M62.838 - Other muscle spasm, M96.1 - Postlaminectomy syndrome, not elsewhere classified Coding Level of Care Code Est Pt Level 4 (43024) Complex EM visit Add On G2211 Diagnoses Postlaminectomy syndrome M96.1 Cervical (neck) region somatic dysfunction M99.01 Cervical spondylosis M47.812 Radiculopathy of cervical spine M54.12 Cervical spinal stenosis M48.02 Impairment of balance R26.89 Frequent falls R29.6
[2025-09-02 09:43] VITALS: BP 129/96; PULSE 80; O2SAT 97; BMI 31.1
== END 2025-09-02 10:13 | disposition home or self-care (01) ==
LOC: HO.PMC 09:24
PROVIDERS: PCP Physician Assistant; Visit Provider Nurse Practitioner Family
DX: M96.1 Postlaminectomy syndrome, not elsewhere classified (principal); M99.01 Segmental and somatic dysfunction of cervical region; M47.812 Spondylosis without myelopathy or radiculopathy, cervical region; M54.12 Radiculopathy, cervical region; M48.02 Spinal stenosis, cervical region; R26.89 Other abnormalities of gait and mobility; R29.6 Repeated falls
CPT/HCPCS: 99214; G2211

== ENCOUNTER → 2025-09-02 09:23 | Outpatient (BNVA) | payer OTHER, SELFPAY | PROVIDERS: PCP Physician Assistant; Visit Provider Nurse Practitioner Family | DX: M96.1 Postlaminectomy syndrome, not elsewhere classified (principal); M99.01 Segmental and somatic dysfunction of cervical region; M47.812 Spondylosis without myelopathy or radiculopathy, cervical region; M54.12 Radiculopathy, cervical region; M48.02 Spinal stenosis, cervical region; R26.89 Other abnormalities of gait and mobility; R26.9 Unspecified abnormalities of gait and mobility | CPT/HCPCS: 99212 ==

== ENCOUNTER 2025-09-12 09:19 | Outpatient (REF) | payer OTHER, SELFPAY ==
--- NOTE | ~2025-09-12 | XR_ITS ---
EXAMINATION: XR CERVICAL SPINE CLINICAL INFORMATION: M54.2 - Cervicalgia COMPARISON: February 09, 2025. TECHNIQUE: Lateral views in neutral, flexion and extension position. AP view. FINDINGS: There is an intact metallic plate anchor with screws in the vertebral bodies from C4 to C6. There is a 6/in the posterior spinous processes C4-5. 1 mm retrolisthesis at C3-4 in neutral position which persists during flexion and extension position. No lytic or blastic lesions. XR/XR cervical spine 4V IMPRESSION: Grade 1 retrolisthesis C3-4 without instability. Electronically signed by: Jese Elizondo MD 09/12/2025 01:44 PM EST
== END 2025-09-12 09:20 | disposition home or self-care (01) ==
LOC: HO.HOSX 09:19
PROVIDERS: PCP Physician Assistant; Referring Provider Nurse Practitioner Family; Visit Provider Physician Assistant
DX: M43.16 Spondylolisthesis, lumbar region (principal)
CPT/HCPCS: 72050; 99202

== ENCOUNTER 2025-09-12 09:19 | Outpatient (AMB) | payer OTHER, SELFPAY ==
--- NOTE | 2025-09-12 09:42 | HO.SPINEOV ---
Intake Visit Reasons: LBP Intake Note: Ms. Sun is here today c/o low back pain. 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 She is a pleasant, complicated 49-year-old female comes in today for evaluation of posterior neck pain and shooting pains into her bilateral upper extremities. She reports that this has been a ongoing issue since about 2013 when she was initially evaluated by Dr. Amato who performed C4-5 ACDF. Unfortunately her symptoms persisted despite this, and he extended the fusion to C6-7 and added anterior plate. She did get some modest relief of her symptoms after this, however states her symptoms largely persisted. In addition to this she also underwent 3 separate lumbar spine surgeries including a lumbar decompression, a L4-5 lumbar fusion and L5-S1 lumbar fusion. Today, she reports that her posterior neck pain and shooting pains in the upper extremities has worsened after a inciting incident back in March. She states that she was attempting to sweep/mop her kitchen, and tripped over a laundry basket falling directly onto her head. After this she had an MRI of her cervical spine at the direction of her neurologist. After reviewing the Neurology notes it appears that she had several falls over the course of the last couple of years hitting her head without evaluation. She does disclose a multi-year Hx of regular alcohol use / falls with dizziness and vertigo but states she has been sober since March when her dizziness / vertigo symptoms significantly worsened. It does not appear that she had any evaluation in the emergency department or head CT regarding this. Today, she reports that after her last fall in March her posterior neck pain significantly worsened, and the shooting pain into her bilateral shoulders worsened. She has baseline shooting burning/electric pains in her bilateral upper extremities which she attributes to a diagnosis of small fiber neuropathy. She is not report that the pain in her left arm is getting worse is any worse than the pain in the right. She reports that since her fall in March her dizziness/vertigo also seems to have worsened. She has been to physical therapy multiple times in the past for her pain, she has attempted cortisone injections in the neck and the back for pain, she has attempted narcotic medication to help relieve her pain, however reports she does not tolerate narcotics well. She is currently taking tizanidine to try and help mitigate her pain, and [id number]-[id number]-rptffni ibuprofen/Tylenol. She does report some balance issues primarily related to her dizziness / vertigo. 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 Social hx: The patient smokes 1 pack cigarettes per day. Vapes cannabis daily, previous daily alcohol use, no current alcohol use. Medications: See [employer] list. Allergies: Hydromorphone, morphine, gabapentin, OxyContin, Vicodin. Physical exam: The patient has notable tangential thinking and had a difficult time answering questions during this evaluation/assessment. The patient has about 4/5 strength with right sided plantar flexion, 4/5 strength with right sided dorsiflexion (states this is due to club foot), 5/5 strength bilaterally with knee extension and knee flexion, 4/5 strength bilaterally with iliopsoas testing. 4/5 strength with bilateral hand histologic aide and interossei testing, 5/5 strength with bilateral triceps/biceps testing. She ambulates with the assistance of a cane, and has a non spastic nonantalgic gait. Due to her visual limitations she requested to be examined in the chair versus getting up onto the examination table. Notable right-sided surgical scar on neck consistent with ACDF incision. Reflexes are 1+ hypoactive bilaterally in the patella but 2+ intact elsewhere. (-) Katz's, (-) clonus, (-) bilateral straight leg raise. Imaging review: MRI of the cervical spine completed here at [facility] shows evidence of previous fusion construct C4-6. There is a slight retrolisthesis of C3-4, with severe left-sided foraminal stenosis, however no other significant compression noted at this level. There also appears to be moderate left-sided foraminal stenosis at C7-T1. No evidence of cord signal change or myelomalacia. Impression: Pleasant, complicated 49-year-old female comes in today for evaluation of posterior neck pain and shooting pains into her bilateral upper extremities. History of 2 previous cervical spine fusion surgeries, the 1st of which was unsuccessful at addressing her pain, the 2nd of which only provided very modest relief and left her with persistent chronic neck pain. Chronic neck pain and bilateral shoulder pain worsened after recent fall in March, prompting evaluation by Neurology, who suggested neurosurgical evaluation given her C-spine history. Recently evaluated by our colleagues in pain management. Overall the patient had a very difficult time providing history regarding her current symptoms. It seems that her primary concerns are related to her dizziness/vertigo and neck pain. She does have left-sided exiting nerve root compression at C3-4 and a slight listhesis. I would like to send her for a set of dynamic cervical spine x-rays to ensure that she is not actively moving from this segment. If this appears stable I would suggest our colleagues in pain management discuss the possibility of an injection at C3-4 to see if this helps mitigate any of the patient's pain symptoms. Given that the patient has no evidence of spinal cord compression or myelomalacia on her MRI imaging, no myelopathic reflexes, and does not report any worsening left-sided symptoms since her fall, I believe that neurosurgical intervention would overall be of low utility for this patient especially given her poor response to previous surgeries. Surgery could be considered to try and address her severe neck pain by extending her fusion up to the C3-4 segment, however we would want to see some kind of good response to injections at this level before considering this. If the patient is not amenable to injections I would suggest attempting other conservative therapies to help mitigate her pain, unless she begins to overtly express an increase in left sided symptoms. Thank you for allowing us to care for your patient. The total time spent with this visit with this patient was 65 minutes reviewing history, physical exam, MRI imaging review, and implementation of treatment plan or further diagnostic testing Sudhir Baxter MD,PhD [facility] Orders: Orders XR cervical spine 4V Today M54.2 - Cervicalgia Coding Level of Care Code New Pt Level 5 (99895) Diagnoses Cervicalgia M54.2
== END 2025-09-12 10:21 | disposition home or self-care (01) ==
LOC: HO.HNS 09:20
PROVIDERS: PCP Physician Assistant; Referring Provider Nurse Practitioner Family; Visit Provider Physician Assistant
DX: M54.2 Cervicalgia (principal)
CPT/HCPCS: 99205

== ENCOUNTER → 2025-09-12 10:32 | Outpatient (BNV) | payer OTHER, SELFPAY | PROVIDERS: PCP Physician Assistant; Referring Provider Nurse Practitioner Family; Visit Provider Radiology Diagnostic Radiology | DX: M43.12 Spondylolisthesis, cervical region (principal) | CPT/HCPCS: 72050 ==

== ENCOUNTER 2025-09-29 09:58 | Outpatient (AMB) | payer OTHER, SELFPAY ==
--- NOTE | 2025-09-29 09:46 | A.OFFPC_ITS ---
Vital Signs 09/29/25 10:00 Height 5 ft 5 in Weight 187 lb 7 oz BMI 31.2 BP 110/76 Blood Pressure Location Lt brachial Position Sitting Respiration 16 Pulse 78 Pulse Source Pulse Oximeter Temp 96.9 F Temp Source Temporal Artery Scan Pulse Oximetry (%) 98 Oxygen Delivery Method Room Air Intake Visit Reasons: Involuntary movement Stage Settings Painter Required: No Allergies hydromorphone (Dilaudid) Allergy (Unknown, Verified 09/29/25 10:11) Vomiting morphine (MORPHINE) Allergy (Unknown, Verified 09/29/25 10:11) VOMITTING gabapentin Adverse Reaction (Verified 09/29/25 10:11) Dizziness From OXYCONTIN Allergy (Unknown, Uncoded 09/29/25 10:11) VOMITTING Vicodin Allergy (Unknown, Uncoded 09/29/25 10:11) Vomiting Medication List - Last Reconciled 09/29/25 by Pedro Cannon PA-C albuterol sulfate 90 mcg/actuation 2 puffs PO Q6H PRN blood pressure test kit-large ([facility] Blood Pressure Monitor kit) As directed cholecalciferol (vitamin D3) 50 mcg PO DAILY 90 days citalopram 20 mg PO DAILY clonazepam 0.500f1 mg PO TID PRN fluticasone propionate 110 mcg/actuation 1 puff inhalation BID 30 days ibuprofen 800 mg PO Q8H 30 days oxcarbazepine 300 mg PO TID oxcarbazepine 300 mg PO TID pyridoxine (vitamin B6) 100 mg PO DAILY tizanidine 4 mg PO TID PRN 30 days torsemide 40 mg PO .anayeli other day PRN Tobacco use date assessed: 07/04/25 Dental Screening Dental Screen Date: 05/05/25 HPI Involuntary movement HPI Details Patient is a 50year-old female here today for a problem visit ? Patient has a past medical history significant for post-laminectomy syndrome, asthma, polyneuropathy ( Small fibroneuropathy) , retinitis, smoker, legally blind. Concern--> She reports that since July, she has experienced episodes that resemble convulsions where she stiffens up, shakes, and her teeth chatter, but she remains fully awake. These episodes last from 35 seconds to a minute and have become more consistent, often triggered by feeling cold. Approximately six months ago, the patient had a significant fall. A CT scan of her brain performed after the fall showed no bleeds or masses. She expresses concern that she may have a traumatic brain injury or concussion that was not visible on the CT scan. The patient has a history of small fiber neuropathy throughout her entire body, which causes foot pain and is exacerbated by walking on hardwood floors. She also has moderate to severe cervical degenerative disc disease. In addition to the involuntary movements, she complains of dizziness, worsening eyesight, memory loss, and poor balance. CHRONIC CONDITIONS--> Neuropathy: Patient has a small fiber neuropathy to a severe degree in her lower extremities.? Has been able to reduce her weight due to being more physically active. We increased her dose to 1.5 tablets in the morning and 1 tablet at night. Of note has been able to lose significant amount of weight due to being more physically active since her pain has been better control. .. Cervical Spine disease: MRI cervical spine showing narrow foraminal stenosis at C3-C4. The patient has a history of cervical spinal stenosis, described as moderate to severe, with associated degenerative disease. She experiences neck pain and involuntary movements, which she describes as feeling like being in a tub of ice cubes. These movements have been more frequent and sometimes feel like seizures, although she remains aware during episodes. .. Smoker:? Unfortunately continues to smoke a pack per day and reports her triggers are her home stress.? She reports smoking more as of late. She is now 50 years old in his interested in the lung cancer screening program .. / bipolar disorder generalized anxiety disorder:? Has been restarted on Trileptal feels her mental health is fairly stable though still feels a bit depressed due to her neuropathic issues..? She has been started on SSRI therapy as well.. Patient continues to follow a therapist and a mental health provider.? She continues with the p.r.n. use of clonazepam for anxiety with decent affect. PFSH Medical History Frequent falls Polyneuropathy Smoker Chronic back pain [place] (hard of hearing) Asthma Depression PONV (postoperative nausea and vomiting) Metatarsus abductus Anxiety Usher syndrome Legally blind Hyponatremia Vaginal pain Cervical (neck) region somatic dysfunction Osteoarthritis of right knee Postlaminectomy syndrome Surgical History S/P tooth extraction Hx of colonoscopy History of back surgery History of fusion of cervical spine History of lumbar fusion History of hysterectomy Family History Father CAD (coronary artery disease) COPD (chronic obstructive pulmonary disease) Social History Housing: Apartment Alcohol intake: never Patient Tobacco Use Status: Current everyday Tobacco user Tobacco use type: Cigarette Cigarette Packs Per Day: 1.5 Cigarettes Per Day: 30 Years Smoked: 34 e-Cigarette/Vaping Use: Currently Using Second Hand Smoke Exposure: Yes Substance Use Type: Marijuana service: No Current occupational status: disabled Current occupational exposures/hazards: No Sexual orientation: Straight/Heterosexual Gender identity: Female Cognitive needs: Yes (cane) Hearing needs: No Vision needs: Yes Questionnaire Thrive Questionnaire Date Thrive assessed: 05/05/25 AUDIT C Alcohol Use Questionnaire (AUDIT-C) 1. How often do you have a drink containing alcohol?: Monthly or less 2. How many drinks containing alcohol do you have on a typical day when you are drinking?: 1 or 2 3. How often do you have six or more drinks on one occasion?: Never Total Score: 1 JORDAN-7 AMB Questionnaire JORDAN-7 Date JORDAN - 7 assessed: 07/04/25 Source: Developed by Drs. Juwan Danielle, Chika Gallegos, Ravi Yuen and colleagues, with an educational chen from [employer]. Review of Systems Const Denies headache(s) Eyes Denies loss of vision ENT Denies vertigo, Denies dizziness, Denies headache(s) and Denies sore throat Card Denies chest pain, Denies leg edema and Denies lightheadedness Resp Denies cough, Denies hemoptysis and Denies wheezing GI Denies abdominal pain, Denies melena, Denies constipation, Denies diarrhea and Denies vomiting Denies urinary frequency, Denies dysuria and Denies urinary urgency Musc Denies arthralgias, Denies joint swelling, Denies numbness and Denies tingling Neuro Denies Abnormal speech present, Denies behavioral changes, Denies vertigo, Denies dizziness, Denies headache(s), Denies loss of vision, Denies memory loss, Denies numbness and Denies tingling Psych Denies anxiety, Denies behavioral changes, Denies depression, Denies memory loss and Denies panic attacks Silvestre/Lymph Denies easy bleeding and Denies easy bruising Aller/Immun Denies wheezing Physical exam (Primary Care) Vital Signs: Last Vital Signs Temp 96.9 F 09/29/25 10:00 Pulse 78 09/29/25 10:00 Resp 16 09/29/25 10:00 BP 110/76 09/29/25 10:00 Pulse Ox 98 09/29/25 10:00 Oxygen Delivery Method Room Air 09/29/25 10:00 BMI result Body Mass Index 31.2 Tobacco/Smoking Status: Tobacco use Status Tobacco use date assessed 07/04/25 09/29/25 09:47 Patient Tobacco Use Status Current everyday Tobacco 09/29/25 09:47 Tobacco use type Cigarette 09/29/25 09:47 e-Cigarette/Vaping Use Currently Using 09/29/25 09:47 Are you ready to quit: No Tobacco cessation counseling provided: Yes Items discussed: Nicotine replacement Relapse Prevention: discussed the importance of a supportive environment, discussed negative mood or depression after quitting, weight gain after smoking is common and discussed dietary, exercise and/or lifestyle changes Number of minutes spent counselin CPT code: 79105 - 4-10 Minutes Thrive Assessment: Date of Thrive Assessment Date Thrive assessed 05/05/25 09/29/25 09:47 Const General: healthy appearing, no acute distress, alert and awake Nutritional Appearance: well nourished Orientation/consciousness: oriented to person, oriented to place and oriented to time HENMT Ears: TM's normal bilaterally General nose exam: Normal nasal mucous membranes and turbinates present Eyes Conjunctivae: conjunctivae normal Sclerae: sclerae normal Pupils: Equal, round and reactive pupils present Neck Neck: Yes no lymphadenopathy and Yes no JVD Thyroid: Thyroid normal Carotids: no bruits Resp Effort & Inspection: normal respiratory effort and not tachypneic Auscultation: no crackles, no rales, no rhonchi and no wheezes Cardio Rate: regular rate Rhythm: regular rhythm Heart sounds: no murmurs and normal S1 and S2 GI Palpation (GI): Soft to palpation, nontender, no hepatomegaly and no splenomegaly Auscultation: normal bowel sounds Skin General skin exam: no rashes or lesions noted and dry skin Neuro General: oriented to person, oriented to place and oriented to time Cranial nerves: Yes Equal, round and reactive pupils present Speech: No Abnormal speech present Gait exam (Neuro): Normal gait present Motor exam (neuro): no tremor noted Extrem Right upper extremity: full ROM Left upper extremity: full ROM Right lower extremity: full ROM; no edema Left lower extremity: full ROM; no edema Psych Mental Status: mental status grossly normal Speech and movement: Normal speech and movement present Affect: normal affect Attitude: cooperative Thought process: Normal thought process present Coding Level of Care Code Est Pt Level 4 (62402) Diagnoses Involuntary movements R25.9 Traumatic brain injury with loss of consciousness, subsequent encounter S06.9X9D Encounter type: subsequent encounter Loss of consciousness presence/duration: with LOC of unspecified duration Balance disorder R26.89 Tobacco use disorder F17.200 Idiopathic small fiber peripheral neuropathy G60.9 Additional Codes Vital Signs *Quality* - CPT code: 79414 - 4-10 Minutes ([id number]) Assessment & Plan Assessment & Plan (1) Involuntary movements: Code(s): R25.9 - Unspecified abnormal involuntary movements Category: Medical Plan: For evaluation of the patient's involuntary movements, the etiology of which is unclear but may represent a post-concussive syndrome or seizure activity, further workup is planned. An MRI of the brain will be ordered to obtain more detailed imaging than the previous CT scan, and a routine EEG will be ordered to assess for seizure-like activity. A referral will be placed for the patient to see her neurologist, Dr. Dietrich, for further evaluation and management, as a referral is required (2) TBI (traumatic brain injury): Code(s): S06.9XAA - Unspecified intracranial injury with loss of consciousness status unknown, initial encounter Category: Medical Qualifiers: Encounter type: subsequent encounter Loss of consciousness presence/duration: with LOC of unspecified duration Qualified Code(s): S06.9X9D - Unspecified intracranial injury with loss of consciousness of unspecified duration, subsequent encounter Plan: Patient does report a history of a traumatic brain injury in March of 2025, had a CT of head at that time without any intracranial pathology. She reports a few months after this fall she started having involuntary movements. (3) Balance disorder: Code(s): R26.89 - Other abnormalities of gait and mobility Category: Medical Plan: Regarding medication management, oxcarbazepine is noted as a potential contributor to her balance issues and central nervous system symptoms. The patient was advised against abruptly stopping all her medications, with a plan to consider tapering one at a time, possibly starting with oxcarbazepine. (4) Tobacco use disorder: Code(s): F17.200 - Nicotine dependence, unspecified, uncomplicated Category: Medical Plan: Juanita does understand she needs to quit smoking though has found it very difficult to do so due to her stress and anxiety. She declines my offer to start nicotine replacement therapy. She has recently turned 50 years old and she is interested in the lung cancer screening program (5) Idiopathic small fiber peripheral neuropathy: Code(s): G60.9 - Hereditary and idiopathic neuropathy, unspecified Category: Medical Plan: For chronic pain and neuropathy, occupational therapy was discussed for strengthening and fall prevention strategies, though home health services are unlikely. Activity is recommended as tolerated, with a lifting restriction of no more than 20 pounds and avoidance of overhead lifting or using ladders. Orders: Orders MR head/brain wo con Today Pedro Cannon PA-C S06.9X9D - Unspecified intracranial injury with loss of consciousness of unspecified duration, subsequent encounter EEG Routine Today Pedro Cannon PA-C S06.9X9D - Unspecified intracranial injury with loss of consciousness of unspecified duration, subsequent encounter Referrals Neurology Referral Pedro Cannon PA-C S06.9X9D - Unspecified intracranial injury with loss of consciousness of unspecified duration, subsequent encounter Lung Cancer Screening Referral Pedro Cannon PA-C F17.200 - Nicotine dependence, unspecified, uncomplicated Medications: Changed From torsemide 40 mg (2 x 20 mg) PO .anayeli other day 30 days 30 tabs 3RF R60.0 - Localized edema To torsemide 40 mg PO .anayeli other day PRN R60.0 - Localized edema Fred Covington MD Refilled cholecalciferol (vitamin D3) 50 mcg PO DAILY 90 caps 1RF 90 days Pedro Cannon PA-C E55.9 - Vitamin D deficiency, unspecified
[2025-09-29 10:00] VITALS: BP 110/76; PULSE 78; RESP 16; TEMP 36.1; O2SAT 98; BMI 31.2
--- OUTSIDE RECORDS SUMMARY | 2025-09-29 11:42 | XMS_ITS | Encounter Summary ---
Author Organization [facility] Prior to 08/27/2024 Address [address] [place] [address] Care Team Providers Care Polish Compounder Name Role Phone Rhonda Perales DO Primary Care Pro vider Unavailable Encounter Details Date Type Department Care Team Description 02/19/2017 Content Coordinator Report Medical Records [address] [place] [address] Cayetano Newton MD Social History Tobacco Use [...] on filedocumented in this encounter Care Teams Polish Compounder Relationship Specialty Start Date End Date Rhonda Perales DO PCP - General Internal Medicine 05/05/15 documented as of this encounter
--- OUTSIDE RECORDS SUMMARY | 2025-09-29 11:42 | XMS_ITS | Encounter Summary ---
Author Organization [facility] Prior to 08/27/2024 Address [address] [place] [address] Care Team Providers Care Welding Equipment Repairer Supervisor Name Role Phone Rhonda Perales DO Primary Care Pro vider Unavailable Reason for Visit * Reason Comments Encounter Details Date Type Department Care Team Description 09/13/2016 Telephone Adult Medicine [address] [address] Lawanda Germain PA-C Social History Tobacco Use [...] filedocumented in this encounter Care Teams Welding Equipment Repairer Supervisor Relationship Specialty Start Date End Date Rhonda Perales DO PCP - General Internal Medicine 05/05/15 documented as of this encounter
--- OUTSIDE RECORDS SUMMARY | 2025-09-29 11:42 | XMS_ITS | Encounter Summary ---
Author Organization [facility] Prior to 08/27/2024 Address [address] [place] [address] Care Team Providers Care Radio Talk Show Host Name Role Phone Rhonda Perales DO Primary Care Pro vider Unavailable Reason for Referral * Non TRISH (Routine) - Authorized/Booked Specialty Diagnoses / Procedures Referred By Contpepper t Referred To Contact Nephrology Procedures REFERRAL TO NEPHROLOGY Lawanda Butler PA-C [address] [place] [address] Yuval Chilel MD [address] [place] [address] Referral ID Status Reason Start Date Expiration Date V isits Requested Visits Authorized [id number] Authorized/B ooked 09/13/2016 09/13/2017 1 1 Reason for Visit * Reason Onset Date Comments Abnormal Test Results 09/13/2016 Encounter Details Date Type Department Care Team Description 09/13/2016 Telephone Adult Medicine [address] [address] Rhonda Perales DO Abnormal Test Results Social [...] done in 2014. Please call patient at [phone] documented in this encounter Plan of Treatment Not on file documented as of this encounter Visit Diagnoses Not on filedocumented in this encounter Care Teams Radio Talk Show Host Relationship Specialty Start Date End Date Rhonda Perales DO PCP - General Internal Medicine 05/05/15 documented as of this encounter
--- OUTSIDE RECORDS SUMMARY | 2025-09-29 11:43 | XMS_ITS | Encounter Summary ---
Author Organization [employer] [facility] Prior to 08/27/2024 Address [address] [place] [address] Care Team Providers Care Garden Implement Mechanic Name Role Phone Rhonda Perales DO Primary Care Pro vider Unavailable Encounter Details Date Type Department Care Team Description 07/22/2019 Orders Only Adult Medicine [address] [address] Rhonda Perales DO Social History Tobacco Use [...] on filedocumented in this encounter Care Teams Garden Implement Mechanic Relationship Specialty Start Date End Date Rhonda Perales DO PCP - General Internal Medicine 05/05/15 documented as of this encounter
--- OUTSIDE RECORDS SUMMARY | 2025-09-29 11:43 | XMS_ITS | Encounter Summary ---
Author Organization [facility] Prior to 08/27/2024 Address [address] [place] [address] Care Team Providers Care Mill Platform Supervisor Name Role Phone Rhonda Perales DO Primary Care Pro vider Unavailable Reason for Visit * Reason Onset Date Comments Fall 07/19/2019 Encounter Details Date Type Department Care Team Description 07/19/2019 Telephone Adult Medicine [address] [address] Rhonda Perales DO Fall Social History Tobacco [...] returned call she can be reached at [phone] * Telephone Encounter - Dixie Carter R.N. [...] Please triage, pt requests call on or [id number] p.m. Telephone Information: * Telephone Encounter - Brenda Asif M.A. - 07/23/2019 10:29 AM EDT Pt advised of RX for Nicoderm patch and instructions, pt verbalized understanding. * Telephone Encounter - Swapna Elmore - 07/23/2019 10:13 AM EDT Patient returning phone call would like a call BUBBA. Very anxious about it. [phone] * Telephone Encounter - Faina Sarmiento M.A. [...] on filedocumented in this encounter Care Teams Mill Platform Supervisor Relationship Specialty Start Date End Date Rhonda Perales DO PCP - General Internal Medicine 05/05/15 documented as of this encounter
--- OUTSIDE RECORDS SUMMARY | 2025-09-29 11:43 | XMS_ITS | Encounter Summary ---
Author Organization [facility] [employer] [facility] Prior to 08/27/2024 Address [address] [place] [address] Care Team Providers Care Building Manager Name Role Phone Rhonda Perales DO Primary Care Pro vider Unavailable Encounter Details Date Type Department Care Team Description 07/30/2019 Old Medical Records Medical Records [address] [place] [address] Abstract, Provider Social History Tobacco Use Types [...] on filedocumented in this encounter Care Teams Building Manager Relationship Specialty Start Date End Date Rhonda Perales DO PCP - General Internal Medicine 05/05/15 documented as of this encounter
--- OUTSIDE RECORDS SUMMARY | 2025-09-29 11:43 | XMS_ITS | Encounter Summary ---
Author Organization [facility] Prior to 08/27/2024 Address [address] [place] [address] Care Team Providers Care Clerical Administrative Assistant Name Role Phone Meliton Christiansen MD Primary Care Provider Unavail able Shawn Aldridge MD Primary Care Provider [phone] Rhonda Perales DO Primary Care Pro vider Unavailable Encounter Details Date Type Department Care Team Description 11/12/2014 [facility] Medical Records [address] [place] [address] Mikel Amato MD Social History Tobacco Use [...] on filedocumented in this encounter Care Teams Clerical Administrative Assistant Relationship Specialty Start Date End Date Meliton Christiansen MD PCP - General Internal Medicine 11/07/14 04/11/15 Shawn Aldridge MD [address] [place], [place] [id number] PCP - General Internal Medicine 04/12/15 05/04/15 Rhonda Perales DO [address] [place] [address] PCP - General Internal Medicine 05/05/15 documented as of this encounter
--- OUTSIDE RECORDS SUMMARY | 2025-09-29 11:43 | XMS_ITS | Encounter Summary ---
Author Organization [employer] [facility] Prior to 08/27/2024 Address [address] [place] [address] Care Team Providers Care Television Mechanic Name Role Phone Rhonda Perales DO Primary Care Pro vider Unavailable Encounter Details Date Type Department Care Team Description 04/05/2018 Orders Only Adult Medicine [address] [address] Rhonda Perales DO Hyponatremia (Primary Dx) Social History Tobacco Use Types Packs/Day Years [...] on file documented as of this encounter Results * BASIC METABOLIC PANEL (05/01/2018 8:21 AM EDT) [facility] Blood Urea Nitrogen 7 5 - 25 mg/dL 05/01/2018 3:44 PM EDT [facility] CREAT 0.66 0.5 - 1.1 mg/dL 05/01/2018 3:44 PM EDT [facility] GLOMERULAR FILTRATION RATE > 60 05/01/2018 3:44 PM EDT [facility] Comment: If patient is -[place]zerbaij[place], multiply result by 1.21 Chronic Kidney Disease: < 60 ml/min/1.73 square meters Kidney Failure: < 15 ml/min/1.73 square meters NA 137 133 - 145 mmol/L 05/01/2018 3:44 PM EDT [facility] K 4.5 3.5 - 5.5 mmol/L 05/01/2018 3:44 PM EDT [facility] CL 105 96 - 110 mmol/L 05/01/2018 3:44 PM EDT [facility] CARBON DIOXIDE (CO2) 25 21 - 32 mmol/L 05/01/2018 3:44 PM EDT [facility] ANION GAP 7 3 - 11 05/01/2018 3:44 PM EDT [facility] CALCIUM 8.8 8.5 - 10.5 mg/dL 05/01/2018 3:44 PM EDT [facility] GLUCOSE 78 70 - 100 mg/dL 05/01/2018 3:58 PM EDT [facility] Comment:Reference range appl icable to fasting specimens only 05/01/2018 8:2 1 AM EDT 05/01/2018 8:22 AM EDT Rhonda Mota DO LAB [facility] documented in this encounter Visit Diagnoses Diagnosis Hyponatremia- Primary Hyposmolality and/or hyponatremia documented in this encounter Care Teams Television Mechanic Relationship Specialty Start Date End Date Rhonda Perales DO PCP - General Internal Medicine 05/05/15 documented as of this encounter
--- OUTSIDE RECORDS SUMMARY | 2025-09-29 11:43 | XMS_ITS | Encounter Summary ---
Author Organization [employer] [facility] Prior to 08/27/2024 Address [address] [place] [address] Care Team Providers Care Woodworking Machine Feeder Name Role Phone Rhonda Perales DO Primary Care Pro vider Unavailable Reason for Visit * Reason Comments E-prescribe Rx Request Encounter Details Date Type Department Care Team Description 12/08/2019 Refill Adult Medicine [address] [address] Rhonda Perales DO E-prescribe Rx Request Social [...] N/A Patients current insurance carrier is: [facility] / Plan: [facility] / Product Type: HMO [id number] documented in this encounter Plan of Treatment Not on file documented as of this encounter Visit Diagnoses Not on filedocumented in this encounter Care Teams Woodworking Machine Feeder Relationship Specialty Start Date End Date Rhonda Perales DO PCP - General Internal Medicine 05/05/15 documented as of this encounter
--- OUTSIDE RECORDS SUMMARY | 2025-09-29 11:43 | XMS_ITS | Encounter Summary ---
Author Organization [facility] [employer] [facility] Prior to 08/27/2024 Address [address] [place] [address] Care Team Providers Care Director Of Development Name Role Phone Meliton Christiansen MD Primary Care Provider Unavail able Shawn Aldridge MD Primary Care Provider [phone] Rhonda Perales DO Primary Care Pro vider Unavailable Encounter Details Date Type Department Care Team Description 11/11/2014 [facility] Medical Records [address] [place] [address] Dalila Scott Social History Tobacco Use Types [...] in this encounter Care Teams Director Of Development Relationship Specialty Start Date End Date Meliton Christiansen MD PCP - General Internal Medicine 11/07/14 04/11/15 Shawn Aldridge MD [address] [place], [place] [phone] PCP - General Internal Medicine 04/12/15 05/04/15 Rhonda Perales DO [address] [place] [address] PCP - General Internal Medicine 05/05/15 documented as of this encounter
--- OUTSIDE RECORDS SUMMARY | 2025-09-29 11:43 | XMS_ITS | Clinical Summary ---
[facility] to [facility]27[facility]24 Address [address] [place] [address] Care Team Providers Care Reinsurance Clerk Name Role Phone Rhonda Perales DO Primary [...] Migraine 04/26/2015 Psychiatric disturbance 07/30/2013 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 Consider upper endoscopy 2017. History of back surgery 05/17/2010 Overview: Dr. Amato 11/14/09-has spinal fusion L3-L5 w/Titanium plates, f/u with Dr. Amato for pain management Depression with anxiety/ Dr. Russell Zuñiga [facility] 08/15/2008 Overview: ? Mood disorder; poss [...] Educational Resources Center for Disease Control (www.cdc.gov/ncbddd/adhd/) [place] Academy of Pediatrics (www.aap.org/healthtopics/adhd.cfm) National Resource Center for ADHD (www.swgc6aunt.org) Children and Adults with Attention Deficit Hyperactivity Disorder (www.luigi.org) [place] Child Psychiatry Access Project (www.[facility].[employer]) This care plan was created in collaboration [...] Additional history exists INFLUENZA (#1) 2025 08/15/2008 COLON CANCER SCREENING 2025 SHINGLES VACCINE (1 of 2) 2025 DTAP/TDAP/TD (3 - Td or Tdap) 06/11/2029 (Refused), 09/12/2008 PNEUMOCOCCAL VACCINE FOR HIG H RISK PATIENTS (#2) 2040 06/11/2019 (Refused) Care Teams Reinsurance Clerk Relationship Specialty Start Date End Date Rhonda Perales DO PCP - General Internal Medicine 05/05/15
--- OUTSIDE RECORDS SUMMARY | 2025-09-29 11:43 | XMS_ITS | Encounter Summary ---
[facility] to [facility]27[facility]24 Address [address] [place] [address] Care Team Providers Care Cafe Or Restaurant Manager Name Role Phone Rhonda Perales DO Primary Care Pro vider Unavailable Reason for Visit * Reason Onset Date Comments medication problems 02/18/2020 Encounter Details Date Type Department Care Team Description 02/18/2020 Telephone Adult Medicine [address] [address] Rhonda Perales DO medication problems Social History [...] M.A. - 02/21/2020 12:56 PM EDT Per 's in Pulmo this Patient no show for [...] not the caller who is? Faxed from [facility] Is this a NEW medication?: NO How long has the patient been taking this medication? Who prescribed this medication for the patient? Rhonda Canales Who is patients PCP?: Rhonda Canales Payor: [facility] MCR / Plan: [facility] / Product Type: HMO [id number] documented in this encounter Plan of Treatment Not on file documented as of this encounter Visit Diagnoses Not on filedocumented in this encounter Care Teams Cafe Or Restaurant Manager Relationship Specialty Start Date End Date Rhonda Perales DO PCP - General Internal Medicine 05/05/15 documented as of this encounter
--- OUTSIDE RECORDS SUMMARY | 2025-09-29 11:43 | XMS_ITS | Encounter Summary ---
Author Organization [employer] [facility] Prior to 08/27/2024 Address [address] [place] [address] Care Team Providers Care Consulting Solution Director Name Role Phone Rhonda Perales DO Primary Care Pro vider Unavailable Reason for Visit * Reason Onset Date Comments Faxed Order 07/28/2015 Encounter Details Date Type Department Care Team Description 07/28/2015 Telephone Adult Medicine [address] [address] Rhonda Perales DO Faxed Order Social History Tobacco Use Types Packs/Day Years Used Date Smoking Tobacco: Every Day Cigarettes 1 21 Smokeless Tobacco: Never Alcohol Use Standard Drinks/Week Comments Yes 1.7 (1 standard drink = 0.6 oz p ure alcohol) 6 drinks per yr at most Sex Assigned at Date Recorded Not on file documented as of this encounter Miscellaneous Notes * Telephone Encounter - Lelo Shaffer - 07/28/2015 2:47 PM EDT Faxed orders received. documented in this encounter Plan of Treatment Not on file documented as of this encounter Visit Diagnoses Not on filedocumented in this encounter Care Teams Consulting Solution Director Relationship Specialty Start Date End Date Rhonda Perales DO PCP - General Internal Medicine 05/05/15 documented as of this encounter
--- OUTSIDE RECORDS SUMMARY | 2025-09-29 11:43 | XMS_ITS | Encounter Summary ---
Author Organization [facility] Prior to 08/27/2024 Address [address] [place] [address] Care Team Providers Care Senior Ios Software Engineer Name Role Phone Rhonda Perales DO Primary Care Pro vider Unavailable Reason for Visit * Reason Onset Date Comments TEST RESULTS 05/17/2019 Encounter Details Date Type Department Care Team Description 05/17/2019 Telephone Adult Medicine [address] [address] Rhonda Perales DO TEST RESULTS Social History [...] testing done . Wants a referral to [facility] , the doctor has a name that starts with a K She will try to find the name in her records Since dr Amato hasretired * Telephone Encounter - Lashay Cotton - 05/19/2019 8:39 AM EDT Pt returning call needs to discuss why she is referred to cardi, and one of her results she doesn'tunderstand * Telephone Encounter - Dixie Carter R.N. - 05/19/2019 8:21 AM EDT Message left for pt and advised her to review my chart messages and call if she has any questions or concerns * Telephone Encounter - Rhonda Mota DO - 05/19/2019 6:03 AM EDT Results released in [employer]. Will refer patient as she chooses * [...] on filedocumented in this encounter Care Teams Senior Ios Software Engineer Relationship Specialty Start Date End Date Rhonda Perales DO PCP - General Internal Medicine 05/05/15 documented as of this encounter
--- OUTSIDE RECORDS SUMMARY | 2025-09-29 11:43 | XMS_ITS | Encounter Summary ---
Author Organization [facility] Prior to 08/27/2024 Address [address] [place] [address] Care Team Providers Care Ammonia Box Operator Name Role Phone Jose Erazo MD Primary Care Provider Noemi Meliton Sanchez MD Primary Care Provider Unavail able Shawn Aldridge MD Primary Care Provider Rhonda Perales DO Primary Care Pro vider Unavailable Encounter Details Date Type Department Care Team Description 03/14/2014 System Support Administrator Report Medical Records [address] [place] [address] Micky Goodman MD Social History Tobacco Use Types Packs/Day [...] on filedocumented in this encounter Care Teams Ammonia Box Operator Relationship Specialty Start Date End Date Jose Erazo MD PCP - General 06/30/09 10/26/14 Meliton Christiansen MD PCP - General Internal Medicine 11/07/14 04/11/15 Shawn Aldridge MD [address] [place] [address] PCP - General Internal Medicine 04/12/15 05/04/15 Rhonda Perales DO [address] [place] [address] PCP - General Internal Medicine 05/05/15 documented as of this encounter
--- OUTSIDE RECORDS SUMMARY | 2025-09-29 11:43 | XMS_ITS | Encounter Summary ---
[facility] to 08/27/[facility]24 Address [address] [place] [address] Care Team Providers Care Admitted Attorneys Name Role Phone Rhonda Perales DO Primary Care Pro vider Unavailable Reason for Visit * Reason Onset Date Comments TEST RESULTS 10/02/2018 Encounter Details Date Type Department Care Team Description 10/02/2018 Telephone Adult Medicine [address] [address] Rhonda Perales DO TEST RESULTS Social History [...] on filedocumented in this encounter Care Teams Admitted Attorneys Relationship Specialty Start Date End Date Rhonda Perales DO PCP - General Internal Medicine 05/05/15 documented as of this encounter
--- OUTSIDE RECORDS SUMMARY | 2025-09-29 11:43 | XMS_ITS | Encounter Summary ---
Author Organization [facility] Prior to 08/27/2024 Address [address] [place] [address] Care Team Providers Care Political Director Name Role Phone Jose Erazo MD Primary Care Provider Noemi Meliton Sanchez MD Primary Care Provider Unavail able Shawn Aldridge MD Primary Care Provider [phone] Rhonda Perales DO Primary Care Pro vider Unavailable Encounter Details Date Type Department Care Team Description 02/11/2014 [facility] Medical Records [address] [place] [address] Mikel Amato MD Social History Tobacco Use [...] on filedocumented in this encounter Care Teams Political Director Relationship Specialty Start Date End Date Jose Erazo MD PCP - General 06/30/09 10/26/14 Meliton Christiansen MD PCP - General Internal Medicine 11/07/14 04/11/15 Shawn Aldridge MD [address] [place], [place] [phone] PCP - General Internal Medicine 04/12/15 05/04/15 Rhonda Perales DO [address] [place] [address] PCP - General Internal Medicine 05/05/15 documented as of this encounter
--- OUTSIDE RECORDS SUMMARY | 2025-09-29 11:43 | XMS_ITS | Encounter Summary ---
Author Organization [facility] Prior to 08/27/2024 Address [address] [place] [address] Care Team Providers Care Integrated Pest Management Technician Name Role Phone Jose Erazo MD Primary Care Provider Noemi Meliton Sanchez MD Primary Care Provider Unavail able Shawn Aldridge MD Primary Care Provider [phone] Rhonda Perales DO Primary Care Pro vider Unavailable Reason for Visit * Reason Onset Date Comments Call-returning From Provider 04/06/2013 Encounter Details Date Type Department Care Team Description 04/06/2013 Telephone Adult Medicine [address] [address] Jose Erazo MD Call-returning From Provider Social [...] on filedocumented in this encounter Care Teams Integrated Pest Management Technician Relationship Specialty Start Date End Date Jose Erazo MD PCP - General 06/30/09 10/26/14 Meliton Christiansen MD PCP - General Internal Medicine 11/07/14 04/11/15 Shawn Aldridge MD [address] [place] [address] PCP - General Internal Medicine 04/12/15 05/04/15 Rhonda Perales DO [address] [place] [address] PCP - General Internal Medicine 05/05/15 documented as of this encounter
--- OUTSIDE RECORDS SUMMARY | 2025-09-29 11:43 | XMS_ITS | Encounter Summary ---
[facility] to 08/27/[facility]24 Address [address] [place] [address] Care Team Providers Care Silverer Name Role Phone Rhonda Perales DO Primary Care Pro vider Unavailable Encounter Details Date Type Department Care Team Description 06/15/2019 Electrotype Finisher Report Medical Records [address] [place] [address] Niyah Ardon, PA-C [address] [place] [address] Social History Tobacco Use Types Packs/Day Years Used Date Smoking Tobacco: Every Day Cigarettes 1 21 Smokeless Tobacco: Never Comments:trying to cut down- not willing to quit at this point Alcohol Use Standard Drinks/Week Comments Yes 1.7 (1 standard drink = 0.6 oz p ure alcohol) 1 time a month Sex Assigned at Date Recorded Not on file documented as of this encounter Plan of Treatment Not on file documented as of this encounter Visit Diagnoses Not on filedocumented in this encounter Care Teams Silverer Relationship Specialty Start Date End Date Rhonda Perales DO PCP - General Internal Medicine 05/05/15 documented as of this encounter
--- OUTSIDE RECORDS SUMMARY | 2025-09-29 11:43 | XMS_ITS | Encounter Summary ---
Author Organization [employer] [facility] Prior to 08/27/2024 Address [address] [place] [address] Care Team Providers Care Steel Fixer Name Role Phone Jose Erazo MD Primary Care Provider Noemi Meliton Sanchez MD Primary Care Provider Unavail able Shawn Aldridge MD Primary Care Provider [phone] Rhonda Perales DO Primary Care Pro vider Unavailable Encounter Details Date Type Department Care Team Description 05/22/2012 Business Doc Medical Records [address] [place] [address] Abstract, Provider Social History Tobacco Use Types [...] on filedocumented in this encounter Care Teams Steel Fixer Relationship Specialty Start Date End Date Jose Erazo MD PCP - General 06/30/09 10/26/14 Meliton Christiansen MD PCP - General Internal Medicine 11/07/14 04/11/15 Shawn Aldridge MD [address] [place], [place] [phone] PCP - General Internal Medicine 04/12/15 05/04/15 Rhonda Perales DO [address] [place] [address] PCP - General Internal Medicine 05/05/15 documented as of this encounter
--- OUTSIDE RECORDS SUMMARY | 2025-09-29 11:43 | XMS_ITS | Encounter Summary ---
Author Organization [facility] Prior to 08/27/2024 Address [address] [place] [address] Care Team Providers Care Hander In Name Role Phone Jose Erazo MD Primary Care Provider Noemi Meliton Sanchez MD Primary Care Provider Unavail able Shawn Aldridge MD Primary Care Provider [phone] Rhonda Perales DO Primary Care Pro vider Unavailable Reason for Referral * Specialist (Routine) - Authorized/Booked Specialty Diagnoses / Procedures Referred By Diana obregon Referred To Contact Ophthalmology Procedures REFERRAL TO EYE SERVICES Jose Erazo MD [address] [place] [address] External Ophthalmology Referral ID Status Reason Start Date Expiration Date V isits Requested Visits Authorized SEE REVIEW 09/04/12 Authorized/ Booked 09/03/2012 12/04/2012 1 1 Reason for Visit * Reason Onset Date Comments Vp Software Engineering Feedback 09/03/2012 Opal Yarbrough Encounter Details Date Type Department Care Team Description 09/03/2012 Telephone Adult Medicine [address] [address] Jose Erazo MD Vp Software Engineering Feedback (Opal Yarbrough) Social History Tobacco Use [...] Pay[place] Product Type: MEDICARE [id number] Effective 07/27/09: BCBS will not retro referral [...] insurance must be obtained and registered in [facility] or their referral can not be processed. [...] Is this visit:Follow Up Address of Specialist: [address] [place] [address] Phone # of Specialist: [phone] Fax #: (if applicable): Does patient have an appointment scheduled?: NO Date of appointment- (including a retro-request): pending this referral Is this appointment related to: Not MVA, WC or Surgery related documented in this encounter Plan of Treatment Not on file documented as of this encounter Visit Diagnoses Not on filedocumented in this encounter Care Teams Hander In Relationship Specialty Start Date End Date Jose Erazo MD PCP - General 06/30/09 10/26/14 Meliton Christiansen MD PCP - General Internal Medicine 11/07/14 04/11/15 Shawn Aldridge MD [address] [place] [address] PCP - General Internal Medicine 04/12/15 05/04/15 Rhonda Perales DO [address] [place] [address] PCP - General Internal Medicine 05/05/15 documented as of this encounter
--- OUTSIDE RECORDS SUMMARY | 2025-09-29 11:43 | XMS_ITS | Encounter Summary ---
Author Organization [facility] Prior to 08/27/2024 Address [address] [place] [address] Care Team Providers Care Supervisor Paste Mixing Name Role Phone Jose Erazo MD Primary Care Provider Noemi Mleiton Sanchez MD Primary Care Provider Unavail able Shawn Aldridge MD Primary Care Provider [phone] Rhonda Perales DO Primary Care Pro vider Unavailable Encounter Details Date Type Department Care Team Description 09/28/2010 [facility] Medical Records [address] [place] [id number] Mikel Amato MD Social History Tobacco Use [...] filedocumented in this encounter Care Teams Supervisor Paste Mixing Relationship Specialty Start Date End Date Jose Erazo MD PCP - General 06/30/09 10/26/14 Meliton Christiansen MD PCP - General Internal Medicine 11/07/14 04/11/15 Shawn Aldridge MD [address] [place], [place] [id number] PCP - General Internal Medicine 04/12/15 05/04/15 Rhonda Perales DO [address] [place] [id number] PCP - General Internal Medicine 05/05/15 documented as of this encounter
--- OUTSIDE RECORDS SUMMARY | 2025-09-29 11:43 | XMS_ITS | Encounter Summary ---
Author Organization [employer] [facility] Prior to 08/27/2024 Address [address] [place] [address] Care Team Providers Care Lead Web Developer Name Role Phone Rhonda Perales DO Primary Care Pro vider Unavailable Reason for Visit * Reason Comments E-prescribe Rx Request Encounter Details Date Type Department Care Team Description 06/02/2019 Refill Adult Medicine [address] [address] Rhonda Perales DO E-prescribe Rx Request Social [...] Telephone Encounter - Rhonda Mota DO - 06/02/2019 12:23 PM EDT Patient was informed that visit she was receiving a short course of baclofen once and that this would not be continued long-term * Telephone Encounter - Christine Chairez M.A. - 06/02/2019 12:11 PM EDT Lab Results Component Value Date NA 134 05/06/2019 K 5.1 05/06/2019 CO2 27 05/06/2019 CL 100 05/06/2019 BUN 10 05/06/2019 CREAT 0.72 05/06/2019 GLU 84 05/06/2019 CA 9.3 05/06/2019 GFR > 60 05/06/2019 Last ov with pcp 05/14/19 * Telephone Encounter - Carmen Soni - 06/02/2019 9:45 AM EDT Patient would like script to be: E-PRESCRIBED/FAXED TO PHARMACY WHEN WAS THE PATIENT'S LAST APPOINTMENT IN ADULT MEDICINE? 05/14/19 WHEN WAS THE LAST TIME THE PATIENT SAW THEIR PCP? Same as above Does patient have an upcoming appointment? No-unable to reach left [facility] to call for appointment due to refill request. Appt due 08/14/19 (THE MEDICATION REQUESTED IS ON THE MED [...] N/A Patients current insurance carrier is: Payor: [employer] / Plan: [facility] [employer] / Product Type: HMO [id number] documented in this encounter Plan of Treatment Not on file documented as of this encounter Visit Diagnoses Not on filedocumented in this encounter Care Teams Lead Web Developer Relationship Specialty Start Date End Date Rhonda Perales DO PCP - General Internal Medicine 05/05/15 documented as of this encounter
--- OUTSIDE RECORDS SUMMARY | 2025-09-29 11:43 | XMS_ITS | Encounter Summary ---
Author Organization [employer] [facility] Prior to 08/27/2024 Address [address] [place] [address] Care Team Providers Care Inserter Promotional Item Name Role Phone Rhonda Perales DO Primary Care Pro vider Unavailable Reason for Visit * Reason Comments E-prescribe Rx Request Encounter Details Date Type Department Care Team Description 10/10/2019 Refill Adult Medicine [address] [id number] Rhonda Perales DO E-prescribe Rx Request Social [...] encounter Miscellaneous Notes * Telephone Encounter - Swapna Elmore - 10/11/2019 2:40 PM EST Patient would like script to be: E-PRESCRIBED/FAXED TO PHARMACY WHEN WAS THE PATIENT'S LAST APPOINTMENT IN ADULT MEDICINE? 08/20/19 WHEN WAS THE LAST TIME THE PATIENT SAW THEIR PCP? 07/12/19 Does patient have an upcoming appointment? No-patient refused appointment, will call back to book appointment (THE MEDICATION REQUESTED IS ON THE MED LIST ABOVE) All of the medications requested were on the CURRENT MEDS list Did you check the Pharmacy information above?: NO Patient wants: 30 -day supply Is this a mail order prescription request ? NO If the refill is from a FAXED refill request what is the RX # listed on the fax? N/A Patients current insurance carrier is: Payor: [employer] / Plan: [facility] / Product Type: HMO [id number] documented in this encounter Plan of Treatment Not on file documented as of this encounter Visit Diagnoses Not on filedocumented in this encounter Care Teams Inserter Promotional Item Relationship Specialty Start Date End Date Rhonda Perales DO PCP - General Internal Medicine 05/05/15 documented as of this encounter
--- OUTSIDE RECORDS SUMMARY | 2025-09-29 11:43 | XMS_ITS | Encounter Summary ---
Author Organization [facility] Prior to 08/27/2024 Address [address] [place] [address] Care Team Providers Care Curer Foam Rubber Name Role Phone Rhonda Perales DO Primary Care Pro vider Unavailable Reason for Referral * (Routine) - Canceled Specialty Diagnoses / Procedures Referred By Contac t Referred To Contact ORTHOPEDICS / Orthopedic Procedures REFERRAL TO ORTHOPEDICS (IN NETWORK) Rhonda Perales DO [address] [place] [address] External Orthopedics Referral ID Status Reason Start Date Expiration Date V isits Requested Visits Authorized SEE REVIEW 06/02/19 Canceled 06/02/2019 1 1 Encounter Details Date Type Department Care Team Description 06/02/2019 Orders Only Adult Medicine [address] [address] Rhonda Perales DO Social History Tobacco Use [...] on filedocumented in this encounter Care Teams Curer Foam Rubber Relationship Specialty Start Date End Date Rhonda Perales DO PCP - General Internal Medicine 05/05/15 documented as of this encounter
--- OUTSIDE RECORDS SUMMARY | 2025-09-29 11:43 | XMS_ITS | Encounter Summary ---
Author Organization [facility] [facility] Prior to 08/27/2024 Address [address] [place] [address] Care Team Providers Care Dielectric Press Operator Name Role Phone Jose Erazo MD Primary Care Provider Noemi Meliton Sanchez MD Primary Care Provider Unavail able Shawn Aldridge MD Primary Care Provider [phone] Rhonda Perales DO Primary Care Pro vider Unavailable Encounter Details Date Type Department Care Team Description 05/18/2010 [facility] Medical Records [address] [place] [id number] Abstract, Provider Social History Tobacco Use Types [...] on filedocumented in this encounter Care Teams Dielectric Press Operator Relationship Specialty Start Date End Date Jose Erazo MD PCP - General 06/30/09 10/26/14 Meliton Christiansen MD PCP - General Internal Medicine 11/07/14 04/11/15 Shawn Aldridge MD [address] [place], [place] [id number] PCP - General Internal Medicine 04/12/15 05/04/15 Rhonda Perales DO [address] [place] [id number] PCP - General Internal Medicine 05/05/15 documented as of this encounter
--- OUTSIDE RECORDS SUMMARY | 2025-09-29 11:43 | XMS_ITS | Encounter Summary ---
Author Organization [facility] Prior to 08/27/2024 Address [address] [place] [address] Care Team Providers Care Clay Stain Mixer Name Role Phone Jose Erazo MD Primary Care Provider Noemi Meliton Sanchez MD Primary Care Provider Unavail able Shawn Aldridge MD Primary Care Provider [phone] Rhonda Perales DO Primary Care Pro vider Unavailable Encounter Details Date Type Department Care Team Description 02/18/2014 [facility] Medical Records [address] [place] [id number] Mikel Amato MD Social History Tobacco Use [...] on filedocumented in this encounter Care Teams Clay Stain Mixer Relationship Specialty Start Date End Date Jose Erazo MD PCP - General 06/30/09 10/26/14 Meliton Christiansen MD PCP - General Internal Medicine 11/07/14 04/11/15 Shawn Aldridge MD [address] [place], [place] [id number] PCP - General Internal Medicine 04/12/15 05/04/15 Rhonda Perales DO [address] [place] [id number] PCP - General Internal Medicine 05/05/15 documented as of this encounter
--- OUTSIDE RECORDS SUMMARY | 2025-09-29 11:43 | XMS_ITS | Encounter Summary ---
Author Organization [facility] Prior to 08/27/2024 Address [address] [place] [address] Care Team Providers Care Market Intelligence Consultant Name Role Phone Rhonda Perales DO Primary Care Pro vider Unavailable Reason for Visit * Reason Onset Date Comments other 07/20/2019 Encounter Details Date Type Department Care Team Description 07/20/2019 Telephone Adult Medicine [address] [address] Rhonda Perales DO other Social History Tobacco Use Types Packs/Day Years [...] encounter Miscellaneous Notes * Telephone Encounter - Sonia Laughlin - 07/20/2019 2:02 PM EDT FYI to Dr. Montejo Trileptal down to 150 mg 3 x a day for 2 weeks. Asked if lyrica generic format could help mood stabilizer. Leaving it in both hands now. Thank you Dr. Montejo for all your hard work. documented in this encounter Plan of Treatment Not on file documented as of this encounter Visit Diagnoses Not on filedocumented in this encounter Care Teams Market Intelligence Consultant Relationship Specialty Start Date End Date Rhonda Perales DO PCP - General Internal Medicine 05/05/15 documented as of this encounter
--- OUTSIDE RECORDS SUMMARY | 2025-09-29 11:43 | XMS_ITS | Encounter Summary ---
Author Organization [facility] [employer] [facility] Prior to 08/27/2024 Address [address] [place] [address] Care Team Providers Care Jute Bag Clipper Name Role Phone Jose Erazo MD Primary Care Provider Noemi Meliton Sanchez MD Primary Care Provider Unavail able Shawn Aldridge MD Primary Care Provider [phone] Rhonda Perales DO Primary Care Pro vider Unavailable Encounter Details Date Type Department Care Team Description 01/16/2012 Financial Sales Consultant Report Medical Records [address] [place] [id number] Rg Garcia Social History Tobacco Use Types Packs/Day Years [...] on filedocumented in this encounter Care Teams Jute Bag Clipper Relationship Specialty Start Date End Date Jose Erazo MD PCP - General 06/30/09 10/26/14 Meliton Christiansen MD PCP - General Internal Medicine 11/07/14 04/11/15 Shawn Aldridge MD [address] [place], [place] [phone] PCP - General Internal Medicine 04/12/15 05/04/15 Rhonda Perales DO [address] [place] [id number] PCP - General Internal Medicine 05/05/15 documented as of this encounter
--- OUTSIDE RECORDS SUMMARY | 2025-09-29 11:43 | XMS_ITS | Encounter Summary ---
Author Organization [facility] Prior to 08/27/2024 Address [address] [place] [address] Care Team Providers Care Housekeeper And Laundry Assistant Name Role Phone Rhonda Perales DO Primary Care Pro vider Unavailable Encounter Details Date Type Department Care Team Description 04/03/2017 [facility] Medical Records [address] [place] [address] Abstract, Provider Social History Tobacco Use Types [...] on filedocumented in this encounter Care Teams Housekeeper And Laundry Assistant Relationship Specialty Start Date End Date Rhonda Perales DO PCP - General Internal Medicine 05/05/15 documented as of this encounter
--- OUTSIDE RECORDS SUMMARY | 2025-09-29 11:43 | XMS_ITS | Encounter Summary ---
Author Organization [facility] [employer] [facility] Prior to 08/27/2024 Address [address] [place] [address] Care Team Providers Care Chief Solution Architect Name Role Phone Rhonda Perales DO Primary Care Pro vider Unavailable Encounter Details Date Type Department Care Team Description 04/01/2018 Telephone Adult Medicine [address] [address] Rhonda Perales DO Social History Tobacco Use [...] Telephone Encounter - Dixie Carter R.N. - 04/01/2018 2:59 PM EDT Pt has not responded to calls re her sodium, she was going to f/u with her senior data mining analyst and psych but did not go to the ed as she did not return calls, may need letter to advise documented in this encounter Plan of Treatment Not on file documented as of this encounter Visit Diagnoses Not on filedocumented in this encounter Care Teams Chief Solution Architect Relationship Specialty Start Date End Date Rhonda Perales DO PCP - General Internal Medicine 05/05/15 documented as of this encounter
== END 2025-09-29 10:51 | disposition home or self-care (01) ==
LOC: HO.HMCH 09:59
PROVIDERS: PCP Physician Assistant; Visit Provider Physician Assistant
DX: R25.9 Unspecified abnormal involuntary movements (principal); S06.9X9D Unspecified intracranial injury with loss of consciousness of unspecified duration, subsequent encounter; R26.89 Other abnormalities of gait and mobility; F17.200 Nicotine dependence, unspecified, uncomplicated; G60.9 Hereditary and idiopathic neuropathy, unspecified

== ENCOUNTER → 2025-09-29 09:58 | Outpatient (BNVA) | payer OTHER, SELFPAY | PROVIDERS: PCP Physician Assistant; Visit Provider Physician Assistant | DX: R26.89 Other abnormalities of gait and mobility (principal); G60.9 Hereditary and idiopathic neuropathy, unspecified; R25.9 Unspecified abnormal involuntary movements; F17.210 Nicotine dependence, cigarettes, uncomplicated; S06.9X9D Unspecified intracranial injury with loss of consciousness of unspecified duration, subsequent encounter | CPT/HCPCS: 99212 ==